=== PATIENT | male | born 1965 | race Caucasian/White ===

== ENCOUNTER 2022-09-22 15:32 | Outpatient (OUT) | payer OTHER, SELFPAY ==
[2022-09-22 16:12] LABS: Estimated Average Glucose 143 mg/dL; Glycohemoglobin A1C 6.6 % (4.5-6.2)
== END 2022-09-22 15:33 | disposition home or self-care (01) ==
PROVIDERS: PCP Internal Medicine; Visit Provider Internal Medicine
DX: E11.65 Type 2 diabetes mellitus with hyperglycemia (principal)
CPT/HCPCS: 36415; 83036

== ENCOUNTER 2023-02-23 15:19 | Outpatient (OUT) | payer OTHER, SELFPAY ==
[2023-02-23 15:57] LABS: Basophils Percent Auto 0.5 % (0.2-2.0); Eosinophils Absolute Auto 0.2 10^3/uL (0.0-0.7); Eosinophils Percent Auto 1.9 % (0.9-7.0); Hematocrit 41.9 % (42.0-54.0); Hemoglobin 14.4 g/dL (14.0-18.0); Immature Granulocytes Abs Auto 0.02 10^3/uL (0.00-0.03); Immature Granulocytes Pct Auto 0.2 % (0.0-0.5); Lymphocytes Absolute Auto 3.6 10^3/uL (1.2-3.8); Lymphocytes Percent Auto 42.7 % (20.5-60.0); Mean Corpuscular HGB Conc 34.4 g/dL (29.9-35.2); Mean Corpuscular Hemoglobin 32.4 pg (25.9-34.0); Mean Corpuscular Volume 94.4 fL (80.0-94.0); Mean Platelet Volume 9.1 fL (9.5-13.5); Monocytes Absolute Auto 0.6 10^3/uL (0.3-0.8); Monocytes Percent Auto 7.4 % (1.7-12.0); Neutrophils Absolute Auto 3.9 10^3/uL (1.4-6.5); Neutrophils Percent Auto 47.3 % (43.0-75.0); Platelet Count 243 10^3/uL (150-450); Red Blood Count 4.44 10^6/uL (4.70-6.10); Red Cell Distribution Width 11.8 % (11.0-15.0); White Blood Count 8.3 10^3/uL (4.0-11.0)
[2023-02-23 16:12] LABS: Microalbumin Urine Random 4.7 mg/dL (<=30.0)
[2023-02-23 16:12] LABS: Estimated Average Glucose 140 mg/dL; Glycohemoglobin A1C 6.5 % (4.5-6.2)
[2023-02-23 16:13] LABS: Alanine Aminotransferase 42 U/L (16-63); Albumin Globulin Ratio 1.1; Albumin Level 4.2 g/dL (3.4-5.0); Alkaline Phosphatase 57 U/L (46-116); Anion Gap 15.1; Aspartate Amino Transferase 20 U/L (15-37); BUN Creatinine Ratio 12.4; Bilirubin Total 0.8 mg/dL (0.2-1.0); Calcium 8.8 mg/dL (8.5-10.1); Chloride 102 mmol/L (98-107); Cholesterol 167 mg/dL (<=200); Estimated GFR (African America >60 (>=60); Estimated GFR (Non-African Ame >60 (>=60); Globulin 3.8 g/dL; Glucose 112 mg/dL (74-106); HDL Cholesterol 42 mg/dL (40-60); LDL Cholesterol Calculated 104.4 mg/dL; Potassium 4.1 mmol/L (3.5-5.1); Sodium 142 mmol/L (136-145); Triglycerides 103 mg/dL (<=150); VLDL CHOLESTEROL 20.6 mg/dL
[2023-02-23 16:26] LABS: Prostate Specific Antigen Scrn 0.83 ng/mL (<=4.00)
== END 2023-02-23 15:20 | disposition home or self-care (01) ==
PROVIDERS: PCP Internal Medicine; Visit Provider Internal Medicine
DX: Z00.00 Encounter for general adult medical examination without abnormal findings (principal)
CPT/HCPCS: 36415; 80053; 80061; 82043; 83036; 85025; G0103

== ENCOUNTER 2023-03-02 07:58 | Outpatient (RCR) | payer OTHER, SELFPAY | END 2023-03-12 09:00 | disposition home or self-care (01) | LOC: PT 07:58 | PROVIDERS: PCP Internal Medicine; Visit Provider Internal Medicine | DX: S46.012D Strain of muscle(s) and tendon(s) of the rotator cuff of left shoulder, subsequent encounter (principal) | CPT/HCPCS: 97110; 97112; 97140; 97162 ==

== ENCOUNTER 2023-03-13 09:29 | Outpatient (RCR) | payer OTHER, SELFPAY | END 2023-04-14 15:54 | disposition home or self-care (01) | LOC: PT 09:29 | PROVIDERS: PCP Internal Medicine; Visit Provider Internal Medicine | DX: S46.012D Strain of muscle(s) and tendon(s) of the rotator cuff of left shoulder, subsequent encounter (principal) | CPT/HCPCS: 97110; 97112; 97140 ==

== ENCOUNTER 2023-08-24 15:25 | Outpatient (OUT) | payer OTHER, SELFPAY ==
--- OUTSIDE RECORDS SUMMARY | 2023-08-24 15:47 | XMS_ITS | CCD ---
Author Organization [facility] Care Team Providers Care Animal Nutritionist Name Role Phone BILL, DR NUGENT Attending Unavailable BALL, DR NUGENT Consulting Unavailable BALL, DR NUGENT Primary Care Unavailable BALL, DR NUGENT Admitting Unavailable BALL, DR NUGENT Consulting Unavailable BALL, DR NUGENT Primary Care Unavailable BALL, DR NUGENT Admitting Unavailable BALL, DR NUGENT Attending Unavailable BALL, DR NUGENT Consulting Unavailable BALL, DR NUGENT Primary Care Unavailable BALL, DR NUGENT Admitting Unavailable BALL, DR NUGENT Attending Unavailable BALL, DR NUGENT Attending Unavailable BALL, DR NUGENT Consulting Unavailable BALL, DR NUGENT Primary Care Unavailable BALL, DR NUGENT Admitting Unavailable Ball, James Unavailable Allergies Allergy Classification Reported Allergen(s) Allergy Type Date of Onset Reaction(s) Facility (1 source) patient allergy list reviewed by nurse or physicia Propensity to adverse reactions Comment:Done [facility] Other Medications Current Medications Medication Drug Class(es) Dates Sig (Normalized) Sig (Original) amLODIPine 5 mg oral tablet (5 sources) Dihydropyridine Calcium Channel Hemant take 1 tablet by mouth once daily amLODIPine Besylate 5 MG TAKE 1 TABLET BY MOUTH EVERY DAY Active carvedilol 25 mg oral tablet (5 sources) alpha-Adrenergic Hemant, beta-Adrenergic Hemant take 1 tablet by mouth twice daily Carvedilol 25 MG TAKE 1 TABLET BY MOUTH TWICE A DAY Active metFORMIN hydrochloride 1000 mg oral tablet (5 sources) Biguanide Start: 09-26-2022 Problems Active Problems Problem Classification Problem Date Documented Date Episodic/Chronic Biliary tract disease (6 sources) Biliary calculus; Translations: [Calculus of gallbladder without cholecystitis without obstruction] Episodic Calculus of urinary tract (12 sources) History of calculus of kidney; Translations: [Personal history of urinary calculi] Episodic Diabetes mellitus with complications (12 sources) Type 2 diabetes mellitus with hyperglycemia; Translations: [Type 2 diabetes mellitus] Onset: 07-20-2021 Chronic Essential hypertension (9 sources) Essential (primary) hypertension; Translations: [Essential hypertension] Onset: 07-23-2021 Chronic Hyperplasia of prostate (7 sources) Lower urinary tract symptoms due to benign prostatic hypertrophy; Translations: [Benign prostatic hyperplasia with lower urinary tract symptoms] Onset: 11-23-2017 Chronic Osteoarthritis (1 source) Localized, primary osteoarthritis of the shoulder region; Translations: [Primary osteoarthritis, right shoulder] Chronic Other connective tissue disease (1 source) Other shoulder lesions, left shoulder Episodic Other non-traumatic joint disorders (1 source) Pain in left shoulder Episodic Other nutritional; endocrine; and metabolic disorders (5 sources) Obesity caused by energy imbalance; Translations: [Other obesity due to excess calories] Chronic Other nutritional; endocrine; and metabolic disorders (10 sources) Body mass index 30+ - obesity; Translations: [Body mass index (BMI) 31.0-31.9, adult] Onset: 11-23-2017 Chronic Other nutritional; endocrine; and metabolic disorders (2 sources) Simple obesity ; Translations: [Exogenous obesity] Chronic Other nutritional; endocrine; and metabolic disorders (2 sources) Other obesity due to excess calories Chronic Other nutritional; endocrine; and metabolic disorders (1 source) Body mass index (BMI) 31.0-31.9, adult Chronic Other nutritional; endocrine; and metabolic disorders (1 source) Obesity; Translations: [Obesity, unspecified] Onset: 02-22-2022 Chronic Other nutritional; endocrine; and metabolic disorders (1 source) Body mass index (BMI) 30.0-30.9, adult Chronic Other screening for suspected conditions (not mental disorders or infectious disease) (2 sources) Encounter for screening for malignant neoplasm of prostate; Translations: [ENC SCREEN MALIG NEOPLASM PROSTATE] Onset: 02-17-2022 Episodic Sprains and strains (2 sources) Strain of muscle of right shoulder; Translations: [Strain of muscle(s) and tendon(s) of the rotator cuff of right shoulder, initial encounter] Onset: 07-30-2018 Episodic Past or Other Problems Problem Classification Problem Date Documented Da te Episodic/Chronic Acute and unspecified renal failure (1 source) Acute renal failure syndrome; Translations: [Acute kidney failure, unspecified] Resolved: 07-20-2021 Episodic Deficiency and other anemia (4 sources) Anemia, unspecified; Translations: [ANEMIA UNSPECIFIED] Onset: 05-28-2021 Episodic Deficiency and other anemia (1 source) Anemia; Translations: [Anemia, unspecified] Resolved: 07-20-2021 Episodic Other connective tissue disease (1 source) Partial thickness rotator cuff tear; Translations: [Partial tear of rotator cuff] Onset: 09-12-2018 Episodic Other non-traumatic joint disorders (1 source) Shoulder joint pain; Translations: [Pain in joint, shoulder region] Onset: 09-12-2018 Episodic Results Test Name Value Interpretation Reference Range Facility Comprehensive Metabolic Pane [facility] 02-23-2023 Albumin [Mass/Vol] 4.828632 g/dL Normal 3.4-5.0 g/dL [facility] [employer] Other ALP [Catalytic activity/Vol] 57 U/L Normal 46-116 U/L [facility] [employer] Other ALT [Catalytic activity/Vol] 42 U/L Normal 16-63 U/L [facility] Other Anion gap [Moles/Vol] 15.1 mmol/L [facility] Other AST [Catalytic activity/Vol] 20 U/L Normal 15-37 U/L [employer] Other Bilirubin [Mass/Vol] 0.8403176 mg/dL Normal 0.2-1.0 mg/dL [employer] Other Calcium [Mass/Vol] 8.6591496 mg/dL Normal 8.5-10 .1 mg/dL [employer] Other Chloride [Moles/Vol] 102 mmol/L Normal 98-107 mmol/L [employer] Other CO2 [Moles/Vol] 29.89700002 mmol/L Normal 21.0-3 2.0 mmol/L [facility] Other Creatinine [Mass/Vol] 1.15055808 mg/dL Normal 0.70-1.30 mg/dL [employer] Other Glucose [Mass/Vol] 112 mg/dL High 74-106 mg/dL [facility] [employer] Other Potassium [Moles/Vol] 4.85210838 mmol/L Normal 3.5-5.1 mmol/L [facility] Other Protein [Mass/Vol] 8.548123 g/dL Normal 6.4-8.2 g/dL [facility] [employer] Other Sodium [Moles/Vol] 142 mmol/L Normal 136-145 mmol/L [facility] [employer] Other Urea nitrogen [Mass/Vol] 14.5756697 mg/dL Normal 7.0-18.0 mg/dL [facility] Other Urea nitrogen/Creatinine [Mass ratio] 12.4 mg/mg [facility] Other Comprehensive Metabolic Panel 3.8 g/dL [facility] Other Comprehensive Metabolic Panel 1.1 [facility] Other Comprehensive Metabolic Panel see note [facility] Other Comprehensive Metabolic Panel >60 >=60 [facility] [employer] Other Lipid Panelon 02-23-2023 Cholesterol [Mass/Vol] 167 mg/dL <=200 mg/dL [facility] [employer] Other Cholesterol in HDL [Mass/Vol] 42 mg/dL Normal 40-60 mg/dL [facility] Other Triglyceride [Mass/Vol] 103 mg/dL <=150 mg/dL [facility] Other Lipid Panel 104.4 mg/dL [facility] Other Lipid Panel 20.6 mg/dL [facility] [employer] Other Lipid Panel 4.0 [facility] [employer] Other PSA SCREENINGon 02-23-2023 PSA SCREENING 0.83 ng/mL <=4.00 ng/mL [facility] Other CBC AUTO DIFFon 02-10-2022 BASO # 0.1 103/ul Normal 0.0-0.1 [facility] Comment on above: Performed By: #### C BC #### [facility] [address] [address] [address] David Lares Basophils/100 WBC (Bld) 0.6 % Normal 0.2-2.[address] [facility] Comment on above: Performed By: #### C BC #### [facility] [address] [address] [address] David Lares EO # 1.3 103/ul Critically high 0.0-0.7 [facility] Comment on above: Performed By: #### C BC #### [facility] [address] [address] [address] David Lares Eosinophils/100 WBC (Bld) 15.2 % Critically high 0.9-7.[address] [facility] Comment on above: Performed By: #### C BC #### [facility] [address] [place] [address] Dr. David Lares Erythrocyte distribution width (RBC) [Ratio] 11.9 % Normal 11.0-15.[address] [facility] Comment on above: Performed By: #### C BC #### [facility] [address] [place] [address] Dr. David Lares Hematocrit (Bld) [Volume fraction] 40.2 % Critically low 42.0-54.[address] [facility] Comment on above: Performed By: #### C BC #### [facility] [address] [place] [address] Dr. David Lares Hemoglobin (Bld) [Mass/Vol] 14.1 g/dL Normal 14.0-18.[address] [facility] Comment on above: Performed By: #### C BC #### [facility] [address] [place] [address] Dr. David Lares IG # 0.01 10e3/ul Normal 0.00-0.[address] [facility] Comment on above: Performed By: #### C BC #### [facility] [address] [place] [address] Dr. David Lares IG % 0.1 % Normal 0.0-0.5 [facility] Comment on above: Performed By: #### C BC #### [facility] [address] [place] [address] Dr. David Lares LYMPH # 3.6 103/ul Normal 1.2-3.[address] [facility] Comment on above: Performed By: #### C BC #### [facility] [address] [place] [address] Dr. David Lares Lymphocytes/100 WBC (Bld) 40.9 % Normal 20.5-60.[address] [facility] Comment on above: Performed By: #### C BC #### [facility] [address] [place] [address] Dr. David Lares MANUAL DIFF REQ NO Normal [facility] Comment on above: Performed By: #### C BC #### [facility] [address] [place] [address] Dr. David Lares MCH (RBC) [Entitic mass] 31.8 pg Normal 25.9-34.[address] [facility] Comment on above: Performed By: #### C BC #### [facility] [address] [place] [address] Dr. David Lares MCHC (RBC) [Mass/Vol] 35.1 g/dL Normal 29.9-35.[address] [facility] Comment on above: Performed By: #### C BC #### [facility] [address] [place] [address] Dr. David Lares MCV (RBC) [Entitic vol] 90.5 fL Normal 80.0-94.[address] [facility] Comment on above: Performed By: #### C BC #### [facility] [address] [place] [address] Dr. David Lares MONO # 0.7 103/ul Normal 0.3-0.[address] [facility] Comment on above: Performed By: #### C BC #### [facility] [address] [place] [address] Dr. David Lares Monocytes/100 WBC (Bld) 8.3 % Normal 1.7-12.[address] [facility] Comment on above: Performed By: #### C BC #### [facility] [address] [address] [address] David Lares NEUT # 3.0 103/ul Normal 1.4-6.[address] [facility] Comment on above: Performed By: #### C BC #### [facility] [address] [address] [address] David Lares Neutrophils/100 WBC (Bld) 34.9 % Critically low 43.0-75.[address] [facility] Comment on above: Performed By: #### C BC #### [facility] [address] [address] [address] David Lares Platelet mean volume (Bld) [Entitic vol] 8.6 fL Critically low 9.5-13.[address] [facility] Comment on above: Performed By: #### C BC #### [facility] [address] [place] [address] Dr. David Lares PLT 244 103/ul Normal 150-[address] [facility] Comment on above: Performed By: #### C BC #### [facility] [address] [address] [address] David Lares RBC 4.44 106/ul Critically low 4.70-6.10 [facility] Comment on above: Performed By: #### C BC #### [facility] [address] [address] [address] David Lares WBC 8.7 103/ul Normal 4.0-11.[address] [facility] Comment on above: Performed By: #### C BC #### [facility] [address] [place] [address] Dr. David Lares LIPID PROFILEon 02-10-2022 CHOL-HDL RATIO NORM SEE BELOW Normal [facility] Comment on above: Result Comment: 3.3 - 4.4 LOW RISK 4.4 - 7.1 AVERAGE RISK 7.1 - 11.0 MODERATE RISK >11.0 HIGH RISK Performed By: #### C MP, LIPID #### [facility] [address] [address] [address] David Lares Cholesterol [Mass/Vol] 151 mg/dL Normal <=[address] [facility] Comment on above: Performed By: #### C MP, LIPID #### [facility] [address] [address] [address] David Lares Cholesterol in HDL [Mass/Vol] 44 mg/dL Normal 40-[address] [facility] Comment on above: Performed By: #### C MP, LIPID #### [facility] [address] [address] [address] David Lares Cholesterol in LDL [Mass/Vol] 87.4 mg/dL Normal [facility] Comment on above: Performed By: #### C MP, LIPID #### [facility] [address] [address] [address] David Lares Cholesterol.total/C holesterol in HDL [Mass ratio] 3.4 {ratio} Normal [facility] Comment on above: Performed By: #### C MP, LIPID #### [facility] [address] [place] [address] Dr. David Lares HDL NORMAL > or = 60 mg/dl - LO W CARDIOVASCULAR RISK <40 mg/dl - HIGH CARDIOVASCULAR RISK Normal [facility] Comment on above: Performed By: #### C MP, LIPID #### [facility] [address] [place] [address] Dr. David Lares LDL CALC NORMAL SEE BELOW Normal [facility] Comment on above: Result Comment: <100 mg/dl OPTIMAL 100 - 129 mg/dl NEAR OR ABOVE OPTIMAL 130 - 159 mg/dl BORDERLINE HIGH 160 - 189 mg/dl HIGH >190 mg/dl VERY HIGH Performed By: #### C MP, LIPID #### [facility] [address] [place] [address] Dr. David Lares Triglyceride [Mass/Vol] 98 mg/dL Normal <=150 [facility] Comment on above: Performed By: #### C MP, LIPID #### [facility] [address] [place] [address] Dr. David Lares VLDL CALC 19.6 mg/dL Normal [facility] Comment on above: Performed By: #### C MP, LIPID #### [facility] [address] [address] [address] David Lares PROF 14(COMP METB)on 022 Albumin [Mass/Vol] 4.2 g/dL Normal 3.4-5.0 [facility] Comment on above: Performed By: #### C MP, LIPID #### [facility] [address] [place] [address] Dr. David Lares Albumin/Globulin [Mass ratio] 1.0 {ratio} Normal [facility] Comment on above: Performed By: #### C MP, LIPID #### [facility] [address] [place] [address] Dr. David Lares ALP [Catalytic activity/Vol] 64 U/L Normal 46-[address] [facility] Comment on above: Performed By: #### C MP, LIPID #### [facility] [address] [place] [address] Dr. David Lares ALT [Catalytic activity/Vol] 25 U/L Normal 16-[address] [facility] Comment on above: Performed By: #### C MP, LIPID #### [facility] [address] [place] [address] Dr. David Lares Anion gap [Moles/Vol] 10.9 mmol/L Normal [facility] Comment on above: Performed By: #### C MP, LIPID #### [facility] [address] [place] [address] Dr. David Lares AST [Catalytic activity/Vol] 19 U/L Normal 15-[address] [facility] Comment on above: Performed By: #### C MP, LIPID #### [facility] [address] [place] [address] Dr. David Lares Bilirubin [Mass/Vol] 0.6 mg/dL Normal 0.2-1.[address] [facility] Comment on above: Performed By: #### C MP, LIPID #### [facility] [address] [place] [address] Dr. David Lares Calcium [Mass/Vol] 8.9 mg/dL Normal 8.5-10.1 [facility] Comment on above: Performed By: #### C MP, LIPID #### [facility] [address] [address] [address] David Lares Chloride [Moles/Vol] 100 mmol/L Normal 98-[address] [facility] Comment on above: Performed By: #### C MP, LIPID #### [facility] [address] [address] [address] David Lares CO2 [Moles/Vol] 29.2 mmol/L Normal 21.0-32.0 [facility] Comment on above: Performed By: #### C MP, LIPID #### [facility] [address] [address] [address] David Lares Creatinine [Mass/Vol] 0.91 mg/dL Normal 0.70-1.30 [facility] Comment on above: Performed By: #### C MP, LIPID #### [facility] [address] [place] [address] Dr. David Lares EGFR-AF OMANI >60 Normal >=60 [facility] Comment on above: Performed By: #### C MP, LIPID #### [facility] [address] [place] [address] Dr. David Lares EGFR-NON AF OMANI >60 Normal >=[address] [facility] Comment on above: Performed By: #### C MP, LIPID #### [facility] [address] [place] [address] Dr. David Lares Globulin (S) [Mass/Vol] 4.1 g/dL Normal [facility] Comment on above: Performed By: #### C MP, LIPID #### [facility] [address] [place] [address] Dr. David Lares Glucose [Mass/Vol] 101 mg/dL Normal 74-106 [facility] Comment on above: Performed By: #### C MP, LIPID #### [facility] [address] [address] [address] David Lares Potassium [Moles/Vol] 4.1 mmol/L Normal 3.5-5.[address] [facility] Comment on above: Performed By: #### C MP, LIPID #### [facility] [address] [place], [place] [id number] Dr. David Lares Protein [Mass/Vol] 8.3 g/dL Critically high 6.4-8.2 [facility] Comment on above: Performed By: #### C MP, LIPID #### [facility] [address] [place] [address] Dr. David Lares Sodium [Moles/Vol] 136 mmol/L Normal 136-145 [facility] Comment on above: Performed By: #### C MP, LIPID #### [facility] [address] [place] [address] Dr. David Lares Urea nitrogen [Mass/Vol] 17.0 mg/dL Normal 7.0-18.[address] [facility] Comment on above: Performed By: #### C MP, LIPID #### [facility] [address] [place] [address] Dr. David Lares Urea nitrogen/Creatinine [Mass ratio] 18.7 mg/mg Normal [facility] Comment on above: Performed By: #### C MP, LIPID #### [facility] [address] [place] [address] Dr. David Lares GLYCOHEMOGLOBIN A1Con 2021 ADA RECOMMENDATION SEE BELOW Normal [facility] Comment on above: Result Comment: ADA RECOMMENDED LIMIT 4.0 - 6.0 ADA THERAPEUTIC TARGET < 7.0 ACTION SUGGESTED > 7.0 Performed By: #### A 1C #### [facility] [address] [place] [address] Dr. David Lares Glucose [Mass/Vol] 123 mg/dL Normal [facility] Comment on above: Performed By: #### A 1C #### [facility] [address] [place] [address] Dr. David Lares HbA1c (Bld) [Mass fraction] 5.9 % Normal 4.5-6.[address] [facility] Comment on above: Performed By: #### A 1C #### [facility] [address] [place] [address] Dr. David Lares MICROALBUMIN, RAND URon 11-2 mALB 2.5 mg/L Normal <=30.[address] [facility] Comment on above: Performed By: #### M ALBR #### [facility] [address] [address] [address] David Lares GLYCOHEMOGLOBIN A1Con 2021 ADA RECOMMENDATION SEE BELOW Normal [facility] Comment on above: Result Comment: ADA RECOMMENDED LIMIT 4.0 - 6.0 ADA THERAPEUTIC TARGET < 7.0 ACTION SUGGESTED > 7.0 Performed By: #### A 1C #### [facility] [address] [address] [address] David Lares Glucose [Mass/Vol] 126 mg/dL Normal [facility] Comment on above: Performed By: #### A 1C #### [facility] [address] [place] [address] Dr. David Lares HbA1c (Bld) [Mass fraction] 6.0 % Normal 4.5-6.[address] [facility] Comment on above: Performed By: #### A 1C #### [facility] [address] [place] [address] Dr. David Lares PROF CHEM 8 (BAS METB)on Anion gap [Moles/Vol] 10.6 mmol/L Normal [facility] Comment on above: Performed By: #### B MP #### [facility] [address] [place] [address] Dr. David Lares Calcium [Mass/Vol] 8.8 mg/dL Normal 8.5-10.1 [facility] Comment on above: Performed By: #### B MP #### [facility] [address] [place] [address] Dr. David Lares Chloride [Moles/Vol] 103 mmol/L Normal 98-107 [facility] Comment on above: Performed By: #### B MP #### [facility] [address] [place] [address] Dr. David Lares CO2 [Moles/Vol] 27.5 mmol/L Normal 21.0-32.0 [facility] Comment on above: Performed By: #### B MP #### [facility] [address] [place] [address] Dr. David Lares Creatinine [Mass/Vol] 0.98 mg/dL Normal 0.70-1.[address] [facility] Comment on above: Performed By: #### B MP #### [facility] [address] [place] [address] Dr. David Lares EGFR-AF OMANI >60 Normal >=60 [facility] Comment on above: Performed By: #### B MP #### [facility] [address] [place] [address] Dr. David Lares EGFR-NON AF OMANI >60 Normal >=[address] [facility] Comment on above: Performed By: #### B MP #### [facility] [address] [place] [address] Dr. David Lares Glucose [Mass/Vol] 102 mg/dL Normal 74-106 [facility] Comment on above: Performed By: #### B MP #### [facility] [address] [place] [address] Dr. David Lares Potassium [Moles/Vol] 4.1 mmol/L Normal 3.5-5.[address] [facility] Comment on above: Performed By: #### B MP #### [facility] [address] [place] [address] Dr. David Lares Sodium [Moles/Vol] 137 mmol/L Normal 136-145 [facility] Comment on above: Performed By: #### B MP #### [facility] [address] [place] [address] Dr. David Lares Urea nitrogen [Mass/Vol] 14.0 mg/dL Normal 7.0-18.[address] [facility] Comment on above: Performed By: #### B MP #### [facility] [address] [place] [address] Dr. David Lares Urea nitrogen/Creatinine [Mass ratio] 14.3 mg/mg Normal [facility] Comment on above: Performed By: #### B MP #### [facility] [address] [place] [address] Dr. David Lares CBC AUTO DIFFon 05-28-2021 BASO # 0.1 103/ul Normal 0.0-0.[address] [facility] Comment on above: Performed By: #### C BC #### [facility] [address] [place] [address] Dr. David Lares Basophils/100 WBC (Bld) 0.7 % Normal 0.2-2.[address] [facility] Comment on above: Performed By: #### C BC #### [facility] [address] [place] [address] Dr. David Lares EO # 0.5 103/ul Normal 0.0-0.[address] [facility] Comment on above: Performed By: #### C BC #### [facility] [address] [place] [address] Dr. David Lares Eosinophils/100 WBC (Bld) 5.6 % Normal 0.9-7.[address] [facility] Comment on above: Performed By: #### C BC #### [facility] [address] [place] [address] Dr. David Lares Erythrocyte distribution width (RBC) [Ratio] 11.8 % Normal 11.0-15.[address] [facility] Comment on above: Performed By: #### C BC #### [facility] [address] [place] [address] Dr. David Lares Hematocrit (Bld) [Volume fraction] 40.7 % Critically low 42.0-54.[address] [facility] Comment on above: Performed By: #### C BC #### [facility] [address] [place] [address] Dr. David Lares Hemoglobin (Bld) [Mass/Vol] 14.0 g/dL Normal 14.0-18.[address] [facility] Comment on above: Performed By: #### C BC #### [facility] [address] [place] [address] Dr. David Lares IG # 0.01 10e3/ul Normal 0.00-0.[address] [facility] Comment on above: Performed By: #### C BC #### [facility] [address] [place] [address] Dr. David Lares IG % 0.1 % Normal 0.0-0.[address] [facility] Comment on above: Performed By: #### C BC #### [facility] [address] [place] [address] Dr. David Lares LYMPH # 3.1 103/ul Normal 1.2-3.[address] [facility] Comment on above: Performed By: #### C BC #### [facility] [address] [place] [address] Dr. David Lares Lymphocytes/100 WBC (Bld) 37.3 % Normal 20.5-60.[address] [facility] Comment on above: Performed By: #### C BC #### [facility] [address] [place] [address] Dr. David Lares MANUAL DIFF REQ NO Normal [facility] Comment on above: Performed By: #### C BC #### [facility] [address] [place] [address] Dr. David Lares MCH (RBC) [Entitic mass] 32.3 pg Normal 25.9-34.[address] [facility] Comment on above: Performed By: #### C BC #### [facility] [address] [place] [address] Dr. David Lares MCHC (RBC) [Mass/Vol] 34.4 g/dL Normal 29.9-35.[address] [facility] Comment on above: Performed By: #### C BC #### [facility] [address] [place] [address] Dr. David Lares MCV (RBC) [Entitic vol] 93.8 fL Normal 80.0-94.[address] [facility] Comment on above: Performed By: #### C BC #### [facility] [address] [place] [address] Dr. David Lares MONO # 0.8 103/ul Normal 0.3-0.[address] [facility] Comment on above: Performed By: #### C BC #### [facility] [address] [place] [address] Dr. David Lares Monocytes/100 WBC (Bld) 8.9 % Normal 1.7-12.[address] [facility] Comment on above: Performed By: #### C BC #### [facility] [address] [place], [place] [address] Dr. David Lares NEUT # 4.0 103/ul Normal 1.4-6.[address] [facility] Comment on above: Performed By: #### C BC #### [facility] [address] [place], [place] [address] Dr. David Lares Neutrophils/100 WBC (Bld) 47.4 % Normal 43.0-75.[address] [facility] Comment on above: Performed By: #### C BC #### [facility] [address] [place] [address] [address] David Lares Platelet mean volume (Bld) [Entitic vol] 8.5 fL Critically low 9.5-13.[address] [facility] Comment on above: Performed By: #### C BC #### [facility] [address] [address] [address] David Larse PLT 208 103/ul Normal 150-[address] [facility] Comment on above: Performed By: #### C BC #### [facility] [address] [address] [address] David Lares RBC 4.34 106/ul Critically low 4.70-6.10 [facility] Comment on above: Performed By: #### C BC #### [facility] [address] [address] [address] David Lares WBC 8.4 103/ul Normal 4.0-11.[address] [facility] Comment on above: Performed By: #### C BC #### [facility] [address] [address] [address] 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 However, the narrative phrase printed from the coding software may appear abbreviated, or result in slightly different terminology. 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 However, the narrative phrase printed from the coding software may appear abbreviated, or result in slightly different terminology. 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 However, the narrative phrase printed from the coding software may appear abbreviated, or result in slightly different terminology. Coded By: Jackelyn Lebron Date Saved: 11/08/2018 04:30 pm [facility] History and Physicalon 11-08 History and Physical [id number] .00OTGTIFF [facility] MAGR Intraoperative Recordon 11-08-2018 MAGR Intraoperative Record MAGR Intra-Op Record Summary Primary Physician: Álvaro Hayes DO Finalized Date/Time: 11/08/18 12:12:53 Pt. Name: DAI GREENWOOD /Sex: 1965 MALE Med Rec #: [id number] Physician: Álvaro Hayes DO Financial #: [id number] Pt. Type: D Room/Bed: / Admit/Disch: 11/05/18 07:54:04 - 11/05/18 13:28:00 Institution: Case Times MAGR Entry 1 Patient In Room Time 11/05/18 09:55:00 Out Room Time 11/05/18 11:10:00 Anesthesia Start Time 11/05/18 09:55:00 Stop Time 11/05/18 11:10:00 Surgery Start Time 11/05/18 10:32:00 Stop Time 11/05/18 10:57:00 Last Modified By: Alyce Reynolds RN 11/05/18 11:23:13 Case Attendance MAGR Entry 1 Entry 2 Entry 3 Case Attendee Álvaro Hayes Bradley MD Jasenak RN, Alyce Valerio DO Role Performed Surgeon - Primary Anesthesiologist of Supervisor [employer] Record Time In 11/05/18 09:55:00 11/05/18 09:55:00 11/05/18 09:55:00 Time Out 11/05/18 11:10:00 11/05/18 11:10:00 11/05/18 11:10:00 Procedure Arthroscopy Arthroscopy Arthroscopy Shoulder(Right) Shoulder(Right) Shoulder(Right) Last Modified By: Gail MCGRATH, Alyce Reynolds RN, Alyce Carranza RN 11/05/18 11:24:52 11/05/18 11:24:52 11/05/18 11:24:52 Entry 4 Entry 5 Case Attendee Jackelyn Lyons RN, CST, Rachel Role Performed Medical Sales Specialist Scrub Personnel Time In 11/05/18 09:55:00 11/05/18 09:55:00 Time Out 11/05/18 11:10:00 11/05/18 11:10:00 Procedure Arthroscopy Arthroscopy Shoulder(Right) Shoulder(Right) Last Modified By: Alyce Reynolds RN, RN, Cynthia M 11/05/18 11:24:52 11/05/18 11:24:52 General Comments: RICHARD HOU ARTHREX REP Surgical Procedures MAGR Pre-Care Text: A.20 Verifies operative procedure, surgical site, and laterality Im.150 Develops individualized plan of care Entry 1 Procedure Arthroscopy Shoulder Primary Procedure Yes Primary Surgeon Álvaro Hayes Modifiers Right Teodoro DO Surgeon Comment RIGHT SHOULDER SCOPE Start 11/05/18 10:32:00 Stop 11/05/18 10:57:00 Anesthesia Type General Surgical Service Orthopedics Wound Class Clean Technique Details Closure Technique Primary Entire procedure Yes was performed via laparoscope or robotic assistance Last Modified By: Alyce Reynolds RN 11/05/18 11:24:51 Post-Care Text: O.730 The patient's care is consistent with the individualized perioperative plan of care General Case Data MAGR Pre-Care Text: A.350.1 Classifies surgical wound Entry 1 Case Information OR MAGR OR 02 Case Level Level 4 Wound Class Clean Specialty Orthopedics ASA Class 2 Diagnosis Preop Diagnosis INTERNAL DERANGEMENT Postop Same As Preop No RIGHT SHOULDER Postop Diagnosis FROZEN SHOULDER Blunt or No Is the procedure No penetrating injury considered occured prior to Emergent/Urgent? the start of the procedure: Last Modified By: Alyce Reynolds RN 11/05/18 11:25:14 Post-Care Text: O.760 Patient receives consistent and comparable care regardless of the setting Time Out MAGR Entry 1 Time out date/time 11/05/18 10:31:00 All team members Yes have introduced themselves by name and role Surgeon, Yes Surgeon reviews Yes anesthesia, nurse critical or confirm patient, unexpected steps, site, procedure operative duration, anticipated blood loss Anesthesia team Yes Nursing team Yes reviews any reviews sterility patient-specific (including concerns indicator results) and equipment issues/concerns Antibiotic Antibiotic Yes Administration Time 10:01 prophylaxis given within the last 60 minutes Is essential N/A imaging displayed? Last Modified By: Alyce Reynolds RN 11/05/18 11:25:44 Patient Positioning MAGR Pre-Care Text: A.280 Identifies baseline musculoskeletal status Im.40 Positions the patient Im.80 Applies safety devices Entry 1 Procedure Arthroscopy Body Position Lateral Shoulder(Right) Left Arm Position Extended on padded arm Right Arm Position Extended board Left Leg Position Extended Right Leg Position Extended Feet Uncrossed? Yes Press Points Checked Yes Positioning Device Arm Boards, Arm Strap, Outcome Met (O.80) Yes Pillow, Safety Strap Last Modified By: Alyce Reynolds RN 11/05/18 11:25:56 Post-Care Text: E.290 Evaluates musculoskeletal status O.80 Patient is free from signs and symptoms of injury related to positioning Skin Prep MAGR Pre-Care Text: A.30 Verifies allergies Im.270 Performs skin preparation Im.270.1 Implements protective measures to prevent skin and tissue injury due to chemical sources Entry 1 Skin Prep Syntegrity Prep Agents (Im.270) Povidone-Iodine Prep By Alyce Reynolds RN Prep Area (Im.270) Shoulder, Arm, Hand Prep Area Details Right Skin Prep Agent Dry Yes Without Pooling Hair Removal Syntegrity Hair Removal Methods Clipper Hair Removal By Álvaro Hayes DO Hair Removal Site Chest Hair Removal Site Right Details Outcome Met (O.100) Yes Last Modified By: Alyce Reynolds RN 11/05/18 11:27:15 Post-Care Text: E.10 Evaluates for signs and symptoms of physical injury to skin and tissue O.100 Patient is free from signs and symptoms of chemical injury Counts Verification MAGR Pre-Care Text: A.20 Verifies operative procedure, surgical site, and laterality A.20.2 Assesses the risk for unintended retained foreign body Im.20 Performs required counts Entry 1 Procedure Arthroscopy Shoulder(Right) Counts Verification Initial Counts Items included in Sponges, Sharps Initial Counts Manual the Initial Count Method Initial Counts Alyce Reynolds RN, Performed By Ashley Jj CST Counts Verification Final Counts Items Included in Sponges, Sharps Final Count Method Manual Final Count Final Count Status Correct Final Counts Alyce Reynolds RN, Performed By Ashley Jj CST Surgeon notified of Yes final counts status Outcome Met (O.20) Yes Last Modified By: Alyce Reynolds RN 11/05/18 11:27:43 Post-Care Text: E.50 Evaluates results of the surgical count O.20 Patient is free from unintended retained foreign objects Patient Care Devices MAGR Pre-Care Text: A.200 Assesses risk for normothermia regulation A.40 Verifies presence of prosthetics or corrective devices Im.280 Implements thermoregulation measures Im.60 Uses supplies and equipment within safe parameters Entry 1 Equipment Type BLANKET LOWER BODY OR Serial ?# [id number] Equipment Setting 43C Last Modified By: Alyce Reynolds RN 11/05/18 11:28:26 Post-Care Text: E.10 Evaluates signs and symptoms of physical injury to skin and tissue O.700 Patient is free from signs and symptoms of injury caused by extraneous objects Medication Administration MAGR Pre-Care Text: A.210 Identifies physiological status Im.220 Administers prescribed medications Entry 1 Time Administered 11/05/18 10:35:00 Medication EPI 1:1000 Route of Admin TOP Volume 6 mL By Álvaro Hayes Outcome Met (O.130) Yes Teodoro DO Last Modified By: Alyce Reynolds RN 11/05/18 11:30:30 Post-Care Text: E.20 Evaluates response to medications O.130 Patient receives appropriately administered medication(s) General Comments: 6ML EPI INTO NACL BAGS Dressing/Packing MAGR Pre-Care Text: A.350 Assesses susceptibility for infection Im.290 Administer care to wound sites Entry 1 Skin Prep Agent Yes Site Shoulder Removed Prior to Dressing? Site Details Right Dressing Item Details Dressing Item 4x4's, ABD Tape (Im.290) Foam (Im.290) Outcome Met Yes Last Modified By: Alyce Reynolds RN 11/05/18 11:31:06 Post-Care Text: E.200 Evaluates progress of wound healing O.200 Patient's wound perfusion is consistent with or improved from baseline levels Departure from OR MAGR Entry 1 Present on Depart Oxygen Via Stretcher Post-op Destination PACU Skin DFO Condition Dry Description Condition Intact Description Report Given To Cristela Lopez RN Airway Maintenance Patient Status Stable Oxygen in Use? Yes Airway Device Simple mask Flow Rate 6 Last Modified By: Alyce Reynolds RN 11/05/18 11:31:36 Case Comments Finalized By: Charlene Tovar RN Document Signatures Signed By: Alyce Reynolds RN 11/05/18 11:36 Charlene Tovar RN 11/08/18 12:12 Unfinalized History Date/Time Username Reason for Unfinalizing Freetext Reason for Unfinalizing 11/05/18 14:23 MHCJASENAK Finish Documentation [facility] MAGR PACU Recordon 9 MAGR PACU Record MAGR PACU Record Summary Primary Physician: Álvaro Hayes DO Finalized Date/Time: 11/08/18 12:14:23 Pt. Name: DAI GREENWOOD /Sex: 1965 MALE Med Rec #: [id number] Physician: Álvaro Hayes DO Financial #: [id number] Pt. Type: D Room/Bed: / Admit/Disch: 11/05/18 07:54:04 - 11/05/18 13:28:00 Institution: PACU Case Times MAGR Entry 1 In PACU I 11/05/18 11:15:00 Discharge from PACU 11/05/18 11:58:00 I Last Modified By: Charlene Tovar RN 11/08/18 12:14:18 Finalized By: Charlene Tovar RN Document Signatures Signed By: Charlene Tovar RN 11/08/18 12:14 [facility] Provider Orderson 11-08-2018 Provider Orders [id number] [facility] 11-06-2018 Consent Forms [id number] .[facility]ructions[facility] Discharge Instructions [id number] .[facility] Medication Managementon 10-12 Medication Management [id number] .[facility]est[facility] Noteon 11-05-2018 Anesthesia Note Patient: DAI GREENWOOD Age: 53 years Sex: MALE : 1965 Associated Diagnoses: None Author: Ruslan Bernal MD Preoperative Information Anesthesia history: Patient history: No prior anesthesia problems. Review of Systems Constitutional: Negative. Respiratory: No shortness of breath. Cardiovascular: No chest pain. Health Status Allergies: Allergic Reactions (All) No Known Medication Allergies Current medications: Home Medications (7) Active amLODIPine 5 mg oral tablet 5 mg = 1 tab(s), PO, Daily aspirin 81 mg oral tablet 81 mg = 1 tab(s), PO, Daily carvedilol 25 mg oral tablet 25 mg = 1 tab(s), PO, BID metFORMIN 1000 mg oral tablet 1,000 mg = 1 tab(s), PO, BID multivitamin with minerals 1 tab(s), PO, Daily Template Non-Formulary Tylenol Extra Strength 500 mg oral tablet 1,000 mg = 2 tab(s), PO, BID Problem list (past medical history): All Problems Hypertension / SNOMED CT [id number] / Confirmed Histories Family History: No family history items have been selected or recorded. Procedure history: Pilonidal cyst (37219431). Colonoscopy (836687865). Esophagogastroduodeno scopy (961911839). Social History Alcohol Assessment Use: Current. Beer, Daily Use: Never. Tobacco Assessment Never (less than 100 in lifetime) Tobacco Use:. Substance Abuse Assessment Substance use: Never. . Social & Psychosocial Habits Alcohol 10/23/2018 Alcohol Use: Never 10/23/2018 Alcohol Use: Current Type: Beer Frequency: Daily Substance Abuse 10/23/2018 Substance use: Never Tobacco 10/23/2018 Smoking tobacco use: Never (less than 100 in l . Physical Examination VS/Measurements Vital Signs (last 24 hrs) Last Charted Heart Rate Peripheral 71 bpm (NOV 05 08:35) Resp Rate 18 br/min (NOV 05 08:35) SBP H 159mmHg (NOV 05 08:40) DBP H 97mmHg (NOV 05 08:40) SpO2 100 % (NOV 05 08:35) General: Alert and oriented, No acute distress. Airway: Mallampati classification: I (soft palate, fauces, uvula, pillars visible). Respiratory: Respirations are non-labored. Cardiovascular: Normal rate, Regular rhythm. Review / Management Laboratory Results Plan [place] [employer]#( A) physical status classification: Class II. Anesthetic Preoperative Plan Anesthesia: General. , Regional Interscalene Block. Anesthetic plan, risks, benefits, and alternatives discussed with the patient and/or family. Patient verbalized understanding. Informed consent was given. Consent was signed by the patient. Sister and Brother in law present. Communication: face to face with patient 10 minutes. Anesthetic technique: Interscalene BPNB for post op pain control R/B discussed. [Electronically Signed on: 11/05/2018 09:38 EDT] Ruslan Bernal MD [Verified on: 11/05/2018 09:38 EDT] Ruslan Bernal MD [facility] Inpatient Patient Summaryon 11-05-2018 [place] [address] Patient Discharge Instructions Name: DAI GREENWOOD : 1965 Patient Address: [address] [place] [address] Primary Care Provider: Name: James Khan After you are discharged if you find you have any questions, please, call [phone] ext [phone] to speak to a nurse. Discharge Diagnosis: Nontraumatic tear of right supraspinatus tendon Prescription Information: If you have been given a prescription for narcotics, seek immediate medical attention if you have any difficulty breathing or any sudden status changes such as confusion and sleepiness. If you or anyone you know is experiencing suicidal thoughts, mental health, alcohol and/or drug addiction problems; contact the [facility] 03/10 Crisis Hotline -Text 4HTCQ to 137789. If you received any narcotics, sedation, or any other medication that causes drowsiness for the next 24 hours, unless otherwise directed: ? Do not drive a car. ? Do not operate machinery such as power tools, lawn mowers, drills, sewing machines, or stoves ? Avoid alcoholic beverages and drugs for allergies, nerves, or sleep ? Do not make important personal or business decisions or sign any legal documents [facility] would like to thank you for allowing us to assist you with your healthcare needs. The following includes patient education materials and information regarding your injury/illness. DAI GREENWOOD Robinson has been given the following list of follow-up instructions, prescriptions, and patient education materials: Follow-up Instructions With: Address: When: Álvaro Hayes [address], [address] [place], [place] [address] Business (2) 11/15/2018 9:00 AM With: Address: When: James Khan [address] [place] [id number] Business (1) Medications During the course of your visit, your medication list was updated with the most current information. The details of those changes are reflected below: Medications to Continue That Have Not Changed Other Medications acetaminophen (Tylenol Extra Strength 500 mg oral tablet) 2 tab(s) Oral 2 times a day. acetaminophen-oxycodo ne (Percocet 5/325 oral tablet) 1 tab(s) Oral Every 6 hours as needed for pain. amLODIPine (amLODIPine 5 mg oral tablet) 1 tab(s) Oral every day. aspirin (aspirin 81 mg oral tablet) 1 tab(s) Oral every day. carvedilol (carvedilol 25 mg oral tablet) 1 tab(s) Oral 2 times a day. metFORMIN (metFORMIN 1000 mg oral tablet) 1 tab(s) Oral 2 times a day. multivitamin with minerals 1 tab(s) Oral every day. Template Non-Formulary It is important to always keep an active list of medications available so that you can share with other providers and manage your medications appropriately. As an additional courtesy, we are also providing you with your final active medications list that you can keep with you. acetaminophen (Tylenol Extra Strength 500 mg oral tablet) 2 tab(s) Oral 2 times a day. acetaminophen-oxycodo ne (Percocet 5/325 oral tablet) 1 tab(s) Oral Every 6 hours as needed for pain., Dr. Hayes's home RX amLODIPine (amLODIPine 5 mg oral tablet) 1 tab(s) Oral every day. aspirin (aspirin 81 mg oral tablet) 1 tab(s) Oral every day. carvedilol (carvedilol 25 mg oral tablet) 1 tab(s) Oral 2 times a day. metFORMIN (metFORMIN 1000 mg oral tablet) 1 tab(s) Oral 2 times a day. multivitamin with minerals 1 tab(s) Oral every day. Template Non-Formulary , omega 3, flax seed, primrose combo twice a day Take only the medications listed above. Contact your doctor prior to taking any medications not on this list. Diet & Activity Patient Activity Level: Patient Diet: Regular Patient Activity Restrictions: Comment: Patient education materials, if any, will display below DR. YOON POST OPERATIVE SHOULDER INSTRUCTIONS SURGEONS WRITTEN INSTRUTCTIONS: -If you have been given a cryo cuff after surgery you should use it as much as possible for the first 24-48 hours. After that it is optional. TIP: Many patients prefer to use it a little longer because it helps reduce pain -You should wiggle your fingers frequently -Change your dressings in 1 day. If steri-strips have been applied DO NOT remove them. When the wound is clean and dry you may leave it open to air but again DO NOT remove any steri-strips that have been applied -You may shower in 1 day but do not let the water stream directly strike the wound -Do pendulum exercises for at least 10 minutes twice a day -If you have any problems or concerns, please call the office at [phone] -Follow up as scheduled Viruses or Bacteria What?s got you sick? Antibiotics only treat bacterial infections. Viral illnesses cannot be treated with antibiotics. When an antibiotic is not prescribed, ask your healthcare professional for tips on how to relieve symptoms and feel better. Usual Cause Illness Viruses Bacteria Antibiotic Needed Cold/Runny Nose NO Bronchitis/Chest Cold (in otherwise healthy children and adults) NO Whooping Cough Yes Flu NO Strep Throat Yes Sore Throat (except strep) NO Fluid in the middle ear (otitis media with effusion) NO Urinary Tract Infection Yes Antibiotics Aren?t Always the Answer www.cdc.gov/getsmart GET SMART Know When Antibiotics Work [place] Department of Health and Human Services Centers for Disease Control and Prevention November 2013 [facility] Recordon 11-05-2018 MAGR Intraoperative Record MAGR Intra-Op Record Summary Primary Physician: Finalized Date/Time: 11/05/18 10:04:36 Pt. Name: DAI GREENWOOD Robinson /Sex: 1965 MALE Med Rec #: [id number] Physician: Álvaro Hayes DO Financial #: [id number] Pt. Type: D Room/Bed: / Admit/Disch: 11/05/18 07:54:04 - Institution: Case Times MAGR Entry 1 Patient In Room Time 11/05/18 09:30:00 Out Room Time 11/05/18 09:53:00 Anesthesia Start Time 11/05/18 09:45:00 Stop Time 11/05/18 09:50:00 Surgery Start Time 11/05/18 09:45:00 Stop Time 11/05/18 09:50:00 Last Modified By: Brandy Paige RN 11/05/18 09:54:52 Case Attendance MAGR Entry 1 Entry 2 Entry 3 Case Attendee Ruslan Bernal MD, Laura RN Klaehn, Margaret RN Role Performed Anesthesiologist of Supervisor White Sugar Supervisor White Sugar Record Time In 11/05/18 09:30:00 11/05/18 09:30:00 11/05/18 09:30:00 Time Out 11/05/18 09:53:00 11/05/18 09:53:00 11/05/18 09:53:00 Procedure Interscalene Interscalene Interscalene Block(Right) Block(Right) Block(Right) Last Modified By: Brandy Paige RN, Margaret RN Klaehn, Margaret RN 11/05/18 09:55:09 11/05/18 09:55:09 11/05/18 09:55:09 Surgical Procedures MAGR Pre-Care Text: A.20 Verifies operative procedure, surgical site, and laterality Im.150 Develops individualized plan of care Entry 1 Procedure Interscalene Block Primary Procedure Yes Primary Surgeon Ruslan Bernal MD Modifiers Right Surgeon Comment INTERSCALENE BLOCK Start 11/05/18 09:45:00 PRIOR TO RIGHT SHOULDER SCOPE Stop 11/05/18 09:50:00 Anesthesia Type Regional Block Surgical Service Anesthesia Wound Class Clean Technique Details Closure Technique N/A Entire procedure No was performed via laparoscope or robotic assistance Last Modified By: Brandy Paige RN 11/05/18 09:55:35 Post-Care Text: O.730 The patient's care is consistent with the individualized perioperative plan of care General Case Data MAGR Pre-Care Text: A.350.1 Classifies surgical wound Entry 1 Case Information OR MAGR Proc Room Case Level None Wound Class Clean Specialty Anesthesia ASA Class 2 Diagnosis Preop Diagnosis INTERSCALENE BLOCK Postop Same As Preop Yes PRIOR TO RIGHT SHOULDER SCOPE Postop Diagnosis INTERSCALENE BLOCK PRIOR TO RIGHT SHOULDER SCOPE Blunt or No Is the procedure No penetrating injury considered occured prior to Emergent/Urgent? the start of the procedure: Last Modified By: Brandy Paige RN 11/05/18 10:02:15 Post-Care Text: O.760 Patient receives consistent and comparable care regardless of the setting Time Out MAGR Entry 1 Time out date/time 11/05/18 09:41:00 All team members Yes have introduced themselves by name and role Surgeon, Yes Surgeon reviews Yes anesthesia, nurse critical or confirm patient, unexpected steps, site, procedure operative duration, anticipated blood loss Anesthesia team Yes Nursing team Yes reviews any reviews sterility patient-specific (including concerns indicator results) and equipment issues/concerns Antibiotic Is essential N/A imaging displayed? Last Modified By: Brandy Paige RN 11/05/18 10:02:28 Patient Positioning MAGR Pre-Care Text: A.280 Identifies baseline musculoskeletal status Im.40 Positions the patient Im.80 Applies safety devices Entry 1 Procedure Interscalene Body Position Semi-Fowlers Block(Right) Left Arm Position Resting at Side Right Arm Position Resting at Side Left Leg Position Extended Right Leg Position Extended Feet Uncrossed? Yes Press Points Checked Yes Outcome Met (O.80) Yes Last Modified By: Brandy Paige RN 11/05/18 09:46:54 Post-Care Text: E.290 Evaluates musculoskeletal status O.80 Patient is free from signs and symptoms of injury related to positioning Skin Prep MAGR Pre-Care Text: A.30 Verifies allergies Im.270 Performs skin preparation Im.270.1 Implements protective measures to prevent skin and tissue injury due to chemical sources Entry 1 Skin Prep Syntegrity Prep Agents (Im.270) Chlorhexidine Gluconate Prep By Ruslan Bernal MD and Alcohol Prep Area (Im.270) Shoulder, Neck Skin Prep Agent Dry Yes Without Pooling Hair Removal Syntegrity Hair Removal Methods No hair removal performed Outcome Met (O.100) Yes Last Modified By: Brandy Paieg RN 11/05/18 10:00:09 Post-Care Text: E.10 Evaluates for signs and symptoms of physical injury to skin and tissue O.100 Patient is free from signs and symptoms of chemical injury Departure from OR MAGR Entry 1 Present on Depart N/A Via Stretcher Post-op Destination [facility] DFO Condition Intact Description Condition Intact Description Report Given To Gail MCGRATH, Alyce Garcia Airway Maintenance Patient Status Stable Last Modified By: Brandy Paige RN 11/05/18 09:59:48 Case Comments Finalized By: Brandy Paige RN Document Signatures Signed By: Brandy Paige RN 11/05/18 10:04 [facility] MAGR Postoperative Recordon 11-05-2018 MAGR Postoperative Record MAGR Phase II Record Summary Primary Physician: Álvaro Hayes DO Finalized Date/Time: 11/05/18 13:38:50 Pt. Name: DAI GREENWOOD D.O.B./Sex: 1965 MALE Med Rec #: [id number] Physician: Álvaro Hayes DO Financial #: [id number] Pt. Type: D Room/Bed: / Admit/Disch: 11/05/18 07:54:04 - Institution: Phase II Case Times MAGR Pre-Care Text: Patient is free from s/s of injury. Patient remains free from compromised physical state related to surgery or anesthesia. Patient comfort maintained. Patient/family verbalize understanding of discharge instructions. Entry 1 In PACU II 11/05/18 12:00:00 Discharge from PACU 11/05/18 13:28:00 II Last Modified By: Brandy Paige RN 11/05/18 13:38:46 Post-Care Text: The patient remains free from s/s of injury. Patient's vital signs stable, circulation maintained, return to preop mental and physical status, opsite/dressing intact, minimal or absent nausea and vomiting, tolerates po intake. Patient verbalizes adequate pain control. Patient/family express understanding of discharge instructions. Finalized By: Brandy Paige RN Document Signatures Signed By: Brandy Paige RN 11/05/18 13:38 [facility] Pre[facility]ordon 0 11-05-2018 MAGR Preoperative Record MAGR Pre-Op Record Summary Primary Physician: Álvaro Hayes DO Finalized Date/Time: 11/05/18 10:06:08 Pt. Name: DAI GREENWOOD /Sex: 1965 MALE Med Rec #: [id number] Physician: Álvaro Hayes DO Financial #: [id number] Pt. Type: D Room/Bed: / Admit/Disch: 11/05/18 07:54:04 - Institution: Pre-Op Case Times MAGR Pre-Care Text: Patient will be optimally prepared for surgery. Patient is free from s/s of injury. Provide information to patient/family related to plan of care. Verify patient allergies. Confirm identity and verify consent before the operative or invasive procedure. Entry 1 Patient Arrival Time 11/05/18 08:35:00 Preop Departure 11/05/18 09:53:00 Last Modified By: Brandy Paige RN 11/05/18 10:06:06 Post-Care Text: Patient is prepared mentally and physically and is ready for surgery. The patient remains free from s/s of injury. Patient/family express understanding of plan of care and participate in decisions affecting his or her perioperrative plan of care. Allergies documented appropriately. Patient identifiers and consent correct. General Comments: Pt arrives per amb. Pt denies any CP, SOB, Hx of S/S of flu, or sleep apnea. Finalized By: Brandy Paige RN Document Signatures Signed By: Brandy Paige RN 11/05/18 10:06 [facility] Operative Report - Surgeon/P mychal 11-05-2018 Operative Report - Surgeon/Physician Preoperative diagnosis: internal derangement right shoulder He is a capsulitis Postoperative diagnosis: adhesive capsulitis right shoulder Procedure: diagnostic arthroscopy right shoulder Manipulation under anesthesia right shoulder Surgeon: J. Teodoro Abigail, D.O. Anesthesia: Gen. with preoperative interscalene block Indications for surgery: progressive pain and loss of function with failure of conservative treatment. MRI findings suggestive of potential cuff tear and labral pathology Estimated blood loss: scant Complications: there were no palpitations Findings: adhesive capsulitis Procedure summary: the patient was brought to upper suite and was given general anesthesia. I examined his shoulder on anesthesia needs clearly had adhesions. Gentle manipulation ultimately produced 180? of flexion and abduction. 65? of external rotation and 80? of internal rotation. He was placed in the lateral decubitus and the shoulder was sterilely prepped and draped in usual fashion. A timeout was taken. The arm was placed in traction. Posterior portal was established. Upon entering the glenohumeral joint there was mild hemarthrosis I passed the scope beneath the biceps and established an anterior portal. I evacuated the hemarthrosis and inspected the joint. Articular cartilage was intact. There was some trace fraying of the labrum which was trimmed up with the torpedo resector. I then placed a hole, labrum and inspected the labrum and interrogated the labrum and a 360? fashion. Labrum was intact. I then placed a grasper on the biceps tendon and pulled the slack out of the tendon to see if there was any tearing or fraying. Biceps tendon had a healthy appearance. The rotator cuff was grossly normal. The footprint was not visible because rotator cuff was still attached. I repositioned the scope into the subacromial space. And I reestablished the anterior cannula into the subacromial space. I took down the bursa so the rotator cuff but could be visualized. It was grossly normal as visualized from above. Also inspected the undersurface of the acromion and acromioclavicular joint did not appreciate impingement or spurs are hooking. The subacromial space was irrigated and evacuated and the portals were closed with nylon suture. There were no complications. [Electronically Signed on: 11/05/2018 10:56 EDT] Álvaro Hayes DO [Verified on: 11/05/2018 10:56 EDT] Álvaro Hayes DO [facility] Patient Handouton 11-05-[address] YOON POST OPERATIVE SHOULDER INSTRUCTIONS SURGEONS WRITTEN INSTRUTCTIONS: -If you have been given a cryo cuff after surgery you should use it as much as possible for the first 24-48 hours. After that it is optional. TIP: Many patients prefer to use it a little longer because it helps reduce pain -You should wiggle your fingers frequently -Change your dressings in 1 day. If steri-strips have been applied DO NOT remove them. When the wound is clean and dry you may leave it open to air but again DO NOT remove any steri-strips that have been applied -You may shower in 1 day but do not let the water stream directly strike the wound -Do pendulum exercises for at least 10 minutes twice a day -If you have any problems or concerns, please call the office at [phone] -Follow up as scheduled [facility] Progress Note - Nurseon 10-11 Progress Note - Nurse PAT review done per Dr. Anderson, no orders received. [Electronically Signed on: 10/25/2018 14:22 EDT] Aubrie Quiroz RN [Verified on: 10/25/2018 14:22 EDT] Aubrie Quiroz RN [facility] Coding Summaryon 10-24-2018 Coding Summary CODING DATE: 10/24/2018 [facility] STATUS: Home PAYOR: Commercial Insurance APC DESCRIPTION 5733 Level 3 Minor Procedures ADMIT DX: REASON FOR VISIT DX: Z01.818 Encounter for other preprocedural examination FINAL DX: PRINCIPAL: Z01.818 Encounter for other preprocedural examination SECONDARY: I10 Essential (primary) hypertension PYMT PROC APC STAT DESCRIPTION DOCTOR NAME DATE NOTE: The code number assigned matches the documented diagnosis and / or procedure in the patient's chart. However, the narrative phrase printed from the coding software may appear abbreviated, or result in slightly different terminology. Coded By: Rosina Cullen Date Saved: 10/24/2018 11:30 am Normal [facility] .Auto Diff 1on 10-23-2018 Auto Willacy % 10 % Normal 1-12 [facility] Comment on above: Performed By: #### 1 [id number], [id number], [id number] #### [facility] (DEFAULT) [address] [place] [address] 63866 Baso Abs# 0.0 x10 Normal 0.0-0.2 [facility] Comment on above: Performed By: #### 1 [id number], [id number], [id number] #### [facility] (DEFAULT) [address] [place] [address] 48371 Basophils/100 WBC (Bld) 0.5 % Normal 0.2-2.0 [facility] Comment on above: Performed By: #### 1 [id number], [id number], [id number] #### [facility] (DEFAULT) [address] [place] [address] 42488 Eos Abs# 0.5 x10 High 0.0-0.4 [facility] Comment on above: Performed By: #### 1 [id number], [id number], [id number] #### [facility] (DEFAULT) [address] [place] [address] 18115 Eosinophils/100 WBC (Bld) 5.6 % High 0.9-4.0 [facility] Comment on above: Performed By: #### 1 [id number], [id number], [id number] #### [facility] (DEFAULT) [address] [place] [address] 14665 Lymphocytes (Bld) [#/Vol] 3.0 x10 High 1.3-2.9 [facility] Comment on above: Performed By: #### 1 [id number], [id number], [id number] #### [facility] (DEFAULT) [address] [place] [address] 27767 Lymphocytes/100 WBC (Bld) 35 % Normal 14-48 [facility] Comment on above: Performed By: #### 1 [id number], [id number], [id number] #### [facility] (DEFAULT) [address] [place] [address] Willacy Abs# 0.8 x10 Normal 0.0-0.8 [facility] Comment on above: Performed By: #### 1 [id number], [id number], [id number] #### [facility] (DEFAULT) [address] [place] [address] Neut Abs# 4.1 x10 Normal 1.5-9.2 [facility] Comment on above: Performed By: #### 1 [id number], [id number], [id number] #### [facility] (DEFAULT) [address] [place] [address] Neutrophils/100 WBC (Bld) 49 % Normal 44-88 [facility] Comment on above: Performed By: #### 1 [id number], [id number], [id number] #### [facility] (DEFAULT) [address] [place] [address] Standardon 10-23-2018 eGFR Non AA >60 [facility] Comment on above: Performed By: #### 1 [id number], [id number], [id number] #### [facility] (DEFAULT) [address] [place] [address] eGFR AA >60 [facility] Comment on above: Result Comment: [employer] sacha Kidney disease could be indicated at eGFRs of less than 60 ml/min/1.73m2. Kidney Failure is indicated at less than 15 ml/min/1.73m2 Performed By: #### 1 [id number], [id number], [id number] #### [facility] (DEFAULT) [address] [place] [address] 53465 Anion gap [Moles/Vol] 16.0 mmol/L Normal 5.0-19.0 [facility] Comment on above: Performed By: #### 1 [id number], [id number], [id number] #### [facility] (DEFAULT) [address] [place] [address] 08049 Calcium [Mass/Vol] 9.4 mg/dL Normal 8.9-10.3 [facility] Comment on above: Performed By: #### 1 [id number], [id number], [id number] #### [facility] (DEFAULT) [address] [place] [address] 25217 Chloride [Moles/Vol] 102 mmol/L Normal 101-111 [facility] Comment on above: Performed By: #### 1 [id number], [id number], [id number] #### [facility] (DEFAULT) [address] [place] [address] 11204 CO2 [Moles/Vol] 25 mmol/L Normal 21-32 [facility] Comment on above: Performed By: #### 1 [id number], [id number], [id number] #### [facility] (DEFAULT) [address] [place] [address] 72974 Creatinine [Mass/Vol] 1.02 mg/dL Normal 0.90-1.30 [facility] Comment on above: Performed By: #### 1 [id number], [id number], [id number] #### [facility] (DEFAULT) [address] [place] [address] 78084 Glucose [Mass/Vol] 127.0 mg/dL High 74.0-118.0 [facility] Comment on above: Performed By: #### 1 [id number], [id number], [id number] #### [facility] (DEFAULT) [address] [place] [address] 59365 Osmolality [Osmolality] 279 mOsm/L [facility] Comment on above: Performed By: #### 1 [id number], [id number], [id number] #### [facility] (DEFAULT) [address] [place] [address] 47111 Potassium [Moles/Vol] 4.1 mmol/L Normal 3.6-5.1 [facility] Comment on above: Performed By: #### 1 [id number], [id number], [id number] #### [facility] (DEFAULT) [address] [place] [address] 81935 Sodium [Moles/Vol] 139.0 mmol/L Normal 136.0-144.0 [facility] Comment on above: Performed By: #### 1 [id number], [id number], [id number] #### [facility] (DEFAULT) [address] [place] [address] Urea nitrogen [Mass/Vol] 13 mg/dL Normal 8-26 [facility] Comment on above: Performed By: #### 1 [id number], [id number], [id number] #### [facility] (DEFAULT) [address] [place] [address] Urea nitrogen/Creatinine [Mass ratio] 13.0 mg/mg Normal 4.6-16.2 [facility] Comment on above: Performed By: #### 1 [id number], [id number], [id number] #### [facility] (DEFAULT) [address] [place] [address] CBC w/ Auto Diffon Erythrocyte distribution width (RBC) [Ratio] 12.3 % Normal 11.5-15.0 [facility] Comment on above: Performed By: #### 1 [id number], [id number], [id number] #### [facility] (DEFAULT) [address] [place] [address] Hematocrit (Bld) [Volume fraction] 42.4 % Normal 34.8-51.9 [facility] Comment on above: Performed By: #### 1 [id number], [id number], [id number] #### [facility] (DEFAULT) [address] [place] [address] 94116 Hemoglobin (Bld) [Mass/Vol] 14.7 g/dL Normal 11.8-17.7 [facility] Comment on above: Performed By: #### 1 [id number], [id number], [id number] #### [facility] (DEFAULT) [address] [place] [address] 96897 Man Diff? Auto Normal [facility] Comment on above: Performed By: #### 1 [id number], [id number], [id number] #### [facility] (DEFAULT) [address] [place] [address] 65290 MCH (RBC) [Entitic mass] 32 pg Normal 24-34 [facility] Comment on above: Performed By: #### 1 [id number], [id number], [id number] #### [facility] (DEFAULT) [address] [place] [address] 13395 MCHC (RBC) [Mass/Vol] 35 g/dL Normal 26-37 [facility] Comment on above: Performed By: #### 1 [id number], [id number], [id number] #### [facility] (DEFAULT) [address] [place] [address] 87053 MCV (RBC) [Entitic vol] 91 fL Normal 81-100 [facility] Comment on above: Performed By: #### 1 [id number], [id number], [id number] #### [facility] (DEFAULT) [address] [place] [address] 82746 Platelet mean volume (Bld) [Entitic vol] 8.9 fL Normal 6.3-10.2 [facility] Comment on above: Performed By: #### 1 [id number], [id number], [id number] #### [facility] (DEFAULT) [address] [place] [address] 95276 Platelets (Bld) [#/Vol] 255 x10 Normal 138-427 [facility] Comment on above: Performed By: #### 1 [id number], [id number], [id number] #### [facility] (DEFAULT) [address] [place] [address] 17068 RBC (Bld) [#/Vol] 4.67 x10 Normal 3.70-5.30 [facility] Comment on above: Performed By: #### 1 [id number], [id number], [id number] #### [facility] (DEFAULT) [address] [place] [address] 07820 WBC (Bld) [#/Vol] 8.5 x10 Normal 3.5-10.5 [facility] Comment on above: Performed By: #### 1 [id number], [id number], [id number] #### [facility] (DEFAULT) [address] [place] [address] 09444 Vital Signs Date Time Vital Sign Value Performing Clinician Facility 02-27-2023 15:30-0500 Body height 172.72 cm James Ball Other [facility] Other 02-27-2023 15:30-0500 Body mass index (BMI) [Ratio] 30.56 kg/m2 James Ball Other [facility] Other 02-27-2023 15:30-0500 Body weight 91.17 kg James Ball Other [facility] Other 02-27-2023 15:30-0500 Diastolic blood pressure 87 mm[Hg] James Ball Other [facility] Other 02-27-2023 15:30-0500 Systolic blood pressure 163 mm[Hg] James Ball Other [facility] Other 09-26-2022 15:30-0400 Body height 172.72 cm James Ball Other [facility] Other 09-26-2022 15:30-0400 Body mass index (BMI) [Ratio] 31.35 kg/m2 James Ball Other [facility] Other 09-26-2022 15:30-0400 Body weight 93.53 kg James Ball Other [facility] Other 09-26-2022 15:30-0400 Diastolic blood pressure 80 mm[Hg] James Ball Other [facility] Other 09-26-2022 15:30-0400 Respiratory rate 12 /min James Ball Other [facility] Other 09-26-2022 15:30-0400 Systolic blood pressure 128 mm[Hg] James Ball Other [facility] Other Encounters Encounter Date Encounter Type Care Provider Facility Start: 03-02-2023 End: 03-02-2023 ambulatory James Khan Other [facility] Other Start: 03-02-2023 Telephone encounter James Bill [facility] Start: 02-27-2023 End: 02-27-2023 ambulatory James Bill Other [facility] Other Start: 02-27-2023 Encounter for genera l adult medical examination without abnormal findings James Khan [facility] Start: 02-27-2023 Periodic preventive med est patient 40-64yrs James Khan [facility] Start: 02-27-2023 Telephone encounter James Khan [facility] Start: 02-22-2023 End: 02-22-2023 ambulatory James Khan Other [facility] Other Start: 02-22-2023 Encounter for genera l adult medical examination without abnormal findings James Khan [facility] Start: 02-22-2023 Telephone encounter James Bill [facility] Start: 09-26-2022 End: 09-26-2022 ambulatory James Bill Other [facility] Other Start: 09-26-2022 Office outpatient vi sit 25 minutes James Khan [facility] Start: 02-22-2022 Adult health examination James Khan Other [facility] Other Start: 02-17-2022 Encounter for genera l adult medical examination without abnormal findings DR JAMES KHAN [facility] Start: 02-10-2022 End: 02-11-[address] JAMES KHAN Facility:[facility] Start: 02-10-2022 End: 02-11-2022 Encounter for general adult medical examination without abnormal findings DR JAMES KHAN Facility:[facility] Start: 02-08-2022 End: 02-09-[address] JAMES KHAN Facility:[facility] Start: 07-20-2021 End: 07-21-[address] JAMES KHAN Facility:[facility] Start: 05-28-2021 End: 05-29-[address] JAMES KHAN Facility:[facility] Procedures Date Procedure Procedure Detail Performing Clinician Start: 02-10-[address] DUBON IN BILL Comment on above: Performed By: #### P [facility] #### [facility] [address] [place] [address] Dr. David Lares Start: 01-24-2018 General examination of patient James Khan Other Depression screening Bryanandrew olmedo Bill Other Immunizations Immunization Date Immunization Notes Care Provider Fa [facility] 02-27-2023 influenza, injectabl e, quadrivalent, contains preservative [facility] Other [facility] Other 03-19-2022 COVID-19 Vaccine Pfi zer - Documentation Purposes Only [facility] Other [facility] Other 02-16-2022 influenza virus vaccine, split virus (incl. purified surface antigen) [facility] Other [facility] Other 03-10-2021 COVID-19 Vaccine Pfi zer - Documentation Purposes Only James [facility] Other [facility] Other 01-15-2021 influenza virus vaccine, split virus (incl. purified surface antigen) [facility] Other [facility] Other 06-20-2020 COVID-19 Vaccine Pfi zer - Documentation Purposes Only James [facility] Other [facility] Other 05-30-2020 COVID-19 Vaccine Pfi zer - Documentation Purposes Only James [facility] Other [facility] Other 01-14-2020 influenza virus vaccine, split virus (incl. purified surface antigen) [facility] Other [facility] Other Payers Date Payer Category Payer Unknown [id number] 2.16.84 [id number] 1965 Unknown [id number] 2.16.84 [id number] 1965 Unknown [id number] 2.16.84 [id number] 1965 Unknown [id number] 2.16.84 [id number] 1960 Unknown [id number] Unknown [id number] Social History Date Type Detail Facility Sex Assigned At [facility] Other Sex Assigned At Sex Assigned At Bir th [facility] Other Evaluation note 02-27-2023 Note Date & Type Note Facility 02-27-2023 Evaluation note Encounter Date Diagnosis Assessment Notes Feb, Wellness examination (ICD-10 - Z00.00) Healthy diet and exercise. Reviewed age-appropriate preventive testing recommended. Feb, Type 2 diabetes mellitus with hyperglycemia, without long-term current use of insulin (ICD-10 - E11.65) This patient is following a comprehensive diabetic treatment plan. They are checking their feet daily for calluses and nonhealing ulcers. They are being seen for yearly dilated eye examinations. Goals: SBP less than 130, LDL less than 100, FBS less than 140, A1C less than 7%. They are checking their BS daily, will which are reviewed at the office visit. Continue regular routine monitoring of A1C,] Microalbumin, Dilated eye exam and Foot exam Feb, Primary hypertension (ICD-10 - I10) This patient is instructed to consume a healthy, low-fat, low-salt diet. They are also encouraged to continue exercise to achieve/maintain a normal BMI. Patient is instructed on home BP measurements: - rest for 5 minutes w/o talking- positioned w/ feet on floor and arm supported- average best 2/3 readings w/ goal < 135/85 _update office w/ results of home readings Feb, Other obesity due to excess calories (ICD-10 - E66.09) This patient has been instructed on a low-fat, high-fiber diet. They are instructed to reduce calories, portion sizes and snacks. It is recommended that they exercise for 30 minutes, 3-5 times weekly. Feb, Body mass index [BMI] 30.0-30.9, adult (ICD-10 - Z68.30) Feb, Strain of left rotator cuff capsule, subsequent encounter (ICD-10 - S46.012D) ROM exercises, heat/ice and Tylenol. Refer for therapy IA injection? Refer to Orthopedics? Feb, Screening PSA (prostate specific antigen) (ICD-10 - Z12.5) Yearly PSA and [facility] Other Evaluation note 02-22-2023 Note Date & Type Note Facility 02-22-2023 Evaluation note Encounter Date Diagnosis Assessment Notes Feb, Wellness examination (ICD-10 - Z00.00) [facility] Other Evaluation note Note Date & Type Note Facility Evaluation note [facility] Other Evaluation note Note Date & Type Note Facility Evaluation note No Information [facility] Other History general Narrative - Reported Note Date & Type Note Facility History general Narrative - Reported [facility] Other History general Narrative - Reported Note Date & Type Note Facility History general Narrative - Reported Type Medical History Cholelithiases Medical History Adhesive capsulitis of right shoulder Medical History Bilateral nephrolithiasis Medical History Benign non-nodular p rostatic hyperplasia with lower urinary tract symptoms Medical History Essential hypertension Medical History Controlled type 2 di abetes mellitus with hyperglycemia, without long-term current use of insulin Medical History History of nephrolithiasis Medical History Exogenous obesity Medical History Arthritis of right shoulder jaspreet on Surgical History Pylonidal cyst 1979 Surgical History [facility] 1997 Surgical History Colonoscopy 2010 Surgical History Arthroscopy 10/2010 Hospitalization History see surgical history [facility] Other Summary Purpose Family History No Family History Records FoundNo Family History Records Found Advance Directives No Advanced Directives Records FoundNo Advanced Directives Records Found Hospital Course Note [facility] SURGERY Clinical Discharge Summary PERSON INFORMATION Name DAI GREENWOOD Age 53 Years 1965 Sex MALE Language Nepalese PCP James Khan Marital Status Single [facility] Service Ambulatory Surgery Acct# Arrival 11/05/2018 07:54:04 Visit Reason SURGERY - RIGHT SHOULDER SCOPE Acuity LOS 019 02:29 Address: [address] [place] [address] Comment: PROVIDER INFORMATION VITALS INFORMATION Vital Sign Triage Latest Temp Oral Temp Temporal Temp Intravascular Temp Axillary Temp Rectal 02 Sat 99 % 94 % Respiratory Rate Peripheral Pulse Rate Apical Heart Rate Blood Pressure / 96 mmHg / 86 mmHg Comment: MEDICAL INFORMATION Allergy Info: No Known Medication Allergies Prescriptions Given: acetaminophen (Tylenol Extra Strength 500 mg oral tablet) 2 tab(s) Oral 2 times a day. acetaminophen-oxycodone (Percocet 5/325 oral tablet) 1 tab(s) Oral Every 6 hours as needed for pain., Dr. Hayes's home RX amLODIPine (amLODIPine 5 mg oral tablet) 1 (more content not included)... Note Patient: DAI GREENWOOD RN: 16 Age: 53 years Sex: MALE : 1965 Associated Diagnoses: None Author: Ruslan Bernal MD Postoperative Information Post Operative Note: Post Anesthesia Care Unit. Anesthetic utilized: General. Regional: Interscalene Block. Health Status Allergies: Allergic Reactions (All) No Known Medication Allergies Physical Examination VS/Measurements Vital Signs (last 24 hrs) Last Charted Heart Rate Peripheral 76 bpm (NOV 05 11:20) Resp Rate H 21br/min (NOV 05 11:20) SBP H 141mmHg (NOV 05 11:20) DBP 82 mmHg (NOV 05 11:20) SpO2 98 % (NOV 05 11:20) Pain assessment: Self-reports no pain. General: Alert and oriented, No acute distress. Respiratory: Respirations are non-labored. Cardiovascular: Normal rate, Regular rhythm. Review / Management Condition: Stable. Assessment Anesthetic outcome No anesthetic complications noted. Adequate pain relief. No Complaint of nausea and vomiting. Plan Transfer/ Discharge: Patient can be disch (more content not included)... Procedure Findings Note Patient: DAI GREENWOOD RN: [id number]- Age: 53 years Sex: MALE : 1965 Associated Diagnoses: None Author: Ruslan Bernal MD Postoperative Information Post Operative Note: Post Anesthesia Care Unit. Anesthetic utilized: General. Regional: Interscalene Block. Health Status Allergies: Allergic Reactions (All) No Known Medication Allergies Physical Examination VS/Measurements Vital Signs (last 24 hrs) Last Charted Heart Rate Peripheral 76 bpm (NOV 05 11:20) Resp Rate H 21br/min (NOV 05:) SBP H 141mmHg (NOV 05:20) DBP 82 mmHg (NOV 05:20) SpO2 98 % (NOV 05:) Pain assessment: Self-reports no pain. General: Alert and oriented, No acute distress. Respiratory: Respirations are non-labored. Cardiovascular: Normal rate, Regular rhythm. Review / Management Condition: Stable. Assessment Anesthetic outcome No anesthetic complications noted. Adequate pain relief. No Complaint of nausea and vomiting. Plan Transfer/ Discharge: Patient can be disch (more content not included)... Additional Source Comments (unrecognized sect ion and content) No Status Records FoundNo Status Records Found INFORMATION SOURCE (unrecogn ized section and content) DATE CREATED AUTHOR 11/11/2018 [facility] DATE CREATED AUTHOR AUTHOR'S ORGANIZ ATION 02/18/2022 [facility] REASON FOR VISIT (unrecogniz ed section and content) [facility] for BP readings FOR RECORDS PERTAINING TO PATIENTS WHO ARE OR HAVE BEEN ENROLLED IN A CHEMICAL DEPENDENCY/SUBSTANCEABUSE PROGRAM, SOME INFORMATION MAY BE OMITTED. This clinical summary was aggregated from multiple sources. Caution should be exercised in using it in the provision of clinical care. This summary normalizes information from multiple sources, and as a consequence, information in this document may materially change the coding, format and clinical context of patient data. In addition, data may be omitted in some cases. CLINICAL DECISIONS SHOULD BE BASED ON THE PRIMARY CLINICAL RECORDS. [email or web address] provides no warranty or guarantee of the accuracy or completeness of information in this document.
[2023-08-24 15:50] LABS: Estimated Average Glucose 143 mg/dL; Glycohemoglobin A1C 6.6 % (4.5-6.2)
== END 2023-08-24 15:26 | disposition home or self-care (01) ==
LOC: LAB 15:26
PROVIDERS: PCP Internal Medicine; Visit Provider Internal Medicine
DX: E11.65 Type 2 diabetes mellitus with hyperglycemia (principal)
CPT/HCPCS: 36415; 83036

== ENCOUNTER 2024-02-22 13:05 | Outpatient (OUT) | payer OTHER, SELFPAY ==
[2024-02-22 13:44] LABS: Basophils Absolute Auto 0.1 10^3/uL (0.0-0.1); Basophils Percent Auto 0.6 % (0.2-2.0); Eosinophils Absolute Auto 0.2 10^3/uL (0.0-0.7); Eosinophils Percent Auto 2.4 % (0.9-7.0); Hematocrit 44.9 % (42.0-54.0); Hemoglobin 15.5 g/dL (14.0-18.0); Immature Granulocytes Abs Auto 0.01 10^3/uL (0.00-0.03); Immature Granulocytes Pct Auto 0.1 % (0.0-0.5); Lymphocytes Absolute Auto 2.7 10^3/uL (1.2-3.8); Mean Corpuscular HGB Conc 34.5 g/dL (29.9-35.2); Mean Corpuscular Hemoglobin 32.2 pg (25.9-34.0); Mean Corpuscular Volume 93.3 fL (80.0-94.0); Mean Platelet Volume 9.1 fL (9.5-13.5); Monocytes Absolute Auto 0.7 10^3/uL (0.3-0.8); Monocytes Percent Auto 8.5 % (1.7-12.0); Neutrophils Absolute Auto 4.7 10^3/uL (1.4-6.5); Neutrophils Percent Auto 56.4 % (43.0-75.0); Platelet Count 254 10^3/uL (150-450); Red Blood Count 4.81 10^6/uL (4.70-6.10); Red Cell Distribution Width 11.8 % (11.0-15.0); White Blood Count 8.3 10^3/uL (4.0-11.0)
[2024-02-22 13:44] LABS: Microalbum Creatinine Ratio Ur 10.4 mg/g (0.0-29.9); Microalbumin Urine Random 1.4 mg/dL (<=30.0)
[2024-02-22 13:46] LABS: Estimated Average Glucose 157 mg/dL; Glycohemoglobin A1C 7.1 % (4.5-6.2)
[2024-02-22 13:57] LABS: Carbon Dioxide 32.1 mmol/L (21.0-32.0); Chloride 103 mmol/L (98-107); Potassium 4.1 mmol/L (3.5-5.1); Sodium 141 mmol/L (136-145)
[2024-02-22 13:58] LABS: Alanine Aminotransferase 59 U/L (16-63); Albumin Level 3.9 g/dL (3.4-5.0); Alkaline Phosphatase 63 U/L (46-116); Aspartate Amino Transferase 31 U/L (15-37); Bilirubin Total 0.6 mg/dL (0.2-1.0); Calcium 8.9 mg/dL (8.5-10.1); Chol HDL Ratio 3.8; Cholesterol 163 mg/dL (<=200); Estimated GFR (African America >60 (>=60 mL/min/1.73m^2); Estimated GFR (Non-African Ame >60 (>=60 mL/min/1.73m^2); Glucose 153 mg/dL (74-106); HDL Cholesterol 43 mg/dL (40-60); Total Protein 7.9 g/dL (6.4-8.2); Triglycerides 115 mg/dL (<=150)
[2024-02-22 14:11] LABS: Prostate Specific Antigen Scrn 0.64 ng/mL (<=4.00)
== END 2024-02-22 13:06 | disposition home or self-care (01) ==
LOC: LAB 13:07
PROVIDERS: PCP Internal Medicine; Visit Provider Internal Medicine
DX: Z00.00 Encounter for general adult medical examination without abnormal findings (principal); Z12.5 Encounter for screening for malignant neoplasm of prostate
CPT/HCPCS: 36415; 80053; 80061; 82043; 82570; 83036; 85025; G0103

== ENCOUNTER 2024-06-08 08:39 | Outpatient (OUT) | payer OTHER, SELFPAY ==
--- OUTSIDE RECORDS SUMMARY | 2024-06-08 08:42 | XMS_ITS | CCD ---
Author Organization [facility] Care Team Providers Care Lead Java Developer Architect Name Role Phone BILL, DR NUGENT Attending [...] or physicia Propensity to adverse reactions Comment:Done [employer] Other Medications Current Medications Medication Drug Class(es) Dates Sig (Normalized) Sig (Original) amLODIPine 5 mg oral tablet (8 sources) Dihydropyridine Calcium Channel Hemant Start: 04-24-2024 take 1 tablet by mouth once daily Amlodipine 5 mg tablet Active 0 .ROUTE .COMPLEX April 24, 2024 11:00am TAKE 1 TABLET BY MOUTH EVERY DAY Start: 08-29-2023 End: 04-24-2024 take 1 tablet by mouth once daily Amlodipine 5 mg tablet Discontinued 5 MG PO Daily August 29, 2023 12:00am April 24, 2024 11:01am take 1 tablet by estuardo th once daily amLODIPine Besylate 5 MG TAKE 1 TABLET BY MOUTH EVERY DAY Active carvedilol 25 mg oral tablet (9 sources) alpha-Adrenergic Hemant, beta-Adrenergic Hemant Start: 06-21-2023 take 1 tablet by mouth twice daily Carvedilol 25 mg tablet Active 0 .ROUTE .COMPLEX 60 June 21, 2023 1:30pm TAKE 1 TABLET BY MOUTH TWICE A DAY Start: 06-21-2023 End: 06-21-2023 take 1 tablet by mouth twice daily Carvedilol 25 mg tablet Discontinued 25 MG PO Twice daily June 21, 2023 12:00am June 21, 2023 1:31pm take 1 tablet by estuardo th twice daily Carvedilol 25 MG TAKE 1 TABLET BY MOUTH TWICE A DAY Active glimepiride 1 mg oral tablet (1 source) Sulfonylurea Start: 05-21-2024 take 1 tablet by mouth once daily Glimepiride 1 mg tablet Active 1 MG PO Daily May 21, 2024 12:00am SITagliptin 50 mg oral tablet (2 sources) Dipeptidyl Peptidase 4 Inhibitor Start: 04-03-2024 take 1 tablet by mouth once daily Sitagliptin Phosphate (Januvia) 50 mg tablet Active 0 .ROUTE .COMPLEX April 03, 2024 8:02am TAKE 1 TABLET BY MOUTH EVERY DAY Start: 03-04-2024 End: 04-03-2024 take 1 tablet by mouth once daily Sitagliptin Phosphate (Januvia) 50 mg tablet Discontinued 50 MG PO Daily March 04, 2024 1:00am April 03, 2024 8:02am telmisartan 20 mg oral tablet (1 source) Angiotensin 2 Receptor Hemant Start: 02-21-2024 take 1 tablet by mouth once daily Telmisartan 20 mg tablet Active 20 MG PO Daily February 21, 2024 1:00am Completed/Discontinued Medications Medication Drug Class(es) Dates Sig (Normalized) Sig (Original) linagliptin 5 mg oral tablet (1 source) Dipeptidyl Peptidase 4 Inhibitor Start: 02-27-2024 End: 03-04-2024 take 1 tablet by mouth once daily Linagliptin (Tradjenta) 5 mg tablet Discontinued 5 MG PO Daily February 27, 2024 1:00am March 04, 2024 2:06pm linagliptin 2.5 mg / metFORMIN hydrochloride 1000 mg oral tablet (2 sources) Biguanide, Dipeptidyl Peptidase 4 Inhibitor Start: 02-22-2024 End: 02-26-2024 take 2.5-1000 mg by mouth once Linagliptin-Metfor min (Jentadueto) 2.5-1,000 mg tablet Discontinued 1 TAB PO Once February 23, 2024 3:20pm February 26, 2024 3:53pm metFORMIN hydrochloride 1000 mg oral tablet (8 sources) Biguanide Start: 01-29-2024 End: 02-23-2024 Metformin 1,000 mg tablet Discontinued 0 .ROUTE .COMPLEX 60 January 29, 2024 10:45am February 23, 2024 3:20pm TAKE 1 TABLET TWICE A DAY BEFORE BREAKFAST AND EVENING MEAL Start: 08-29-2023 End: 01-29-2024 take 1 tablet by mouth twice daily at mealtime Metformin 1,000 mg tablet Discontinued 1000 MG PO Twice daily with meals August 29, 2023 12:00am January 29, 2024 10:45am Start: 09-26-2022 metFORMIN hydrochloride 1000 mg / SITagliptin 50 mg oral tablet (1 source) Biguanide, Dipeptidyl Peptidase 4 Inhibitor Start: 02-26-2024 End: 02-27-2024 take 1 tablet by mouth once Sitagliptin Phos-Metformin (Janumet) 50-1,000 mg tablet Discontinued 1 TAB PO Once 30 February 26, 2024 1:00am February 27, 2024 6:43pm Problems Active Problems Problem Classification Problem Date Documented Date Episodic/Chronic Biliary tract disease (6 sources) Biliary calculus; Translations: [Calculus of gallbladder without cholecystitis without obstruction] Episodic Calculus of urinary tract (16 sources) History of calculus of kidney; Translations: [Personal history of urinary calculi] 08-27-2023 Episodic Diabetes mellitus with complications (16 sources) Type 2 diabetes mellitus with hyperglycemia; Translations: [Type 2 diabetes mellitus] Onset: 07-20-2021 Chronic Essential hypertension (13 sources) Essential (primary) hypertension; Translations: [Essential hypertension] Onset: 07-23-2021 Chronic Hyperplasia of prostate (9 sources) Lower urinary tract symptoms due to benign prostatic hypertrophy; Translations: [Benign prostatic hyperplasia with lower urinary tract symptoms] Onset: 11-23-2017 08-29-2023 Chronic Osteoarthritis (1 source) Localized, primary osteoarthritis [...] Chronic Other nutritional; endocrine; and metabolic disorders (3 sources) Obesity; Translations: [Obesity, unspecified] Onset: 02-22-2022 08-29-2023 Chronic Other nutritional; endocrine; and metabolic disorders (1 source) Body mass index (BMI) 30.0-30.9, adult Chronic Other nutritional; endocrine; and metabolic disorders (1 source) Obesity, unspecified; Translations: [Obesity, unspecified] 05-21-2024 Chronic Other screening for suspected conditions (not mental disorders or infectious disease) (3 sources) Encounter for screening for malignant neoplasm of prostate; Translations: [Patient encounter status] Onset: 02-17-2022 Episodic Comment on above: PSA: 0.66 - 02/2022, 0.83 - 02/2023, 0.64 - 02/2024, Sprains and strains (2 sources) Strain of [...] Test Name Value Interpretation Reference Range Facility Basophils Auto (Bld) [#/Vol] on 02-22-2024 Basophils (Bld) [#/Vol] Automated basophil count 0.0-0.1 [facility] Basophils/100 WBC Auto (Bld) on 02-22-2024 Basophils/100 WBC (Bld) Automated basophil % 0.2-2.0 [facility] Cholesterol in LDL Calc [Mas s/Vol]on 02-22-2024 Cholesterol in LDL [Mass/Vol] Cholesterol in LDL [Mass/volume] in Serum or Plasma by calculation [facility] Comment on above: <100 mg/dl [id number] 0-129 mg/dl NEAR OR ABOVE [id number] mg/dl BORDERLINE [id number] mg/dl HIGH>190 mg/dl VERY HIGH Cholesterol in VLDL Calc [Ma ss/Vol]on 02-22-2024 Cholesterol in VLDL [Mass/Vol] Cholesterol in VLDL [Mass/volume] in Serum or Plasma by calculation [facility] Eosinophils/100 WBC Auto (Bl d)on 02-22-2024 Eosinophils/100 WBC (Bld) Automated eosinophil % 0.9-7.0 [facility] Erythrocyte distribution wid th Auto (RBC) [Ratio]on 02-22-2024 Erythrocyte distribution width (RBC) [Ratio] Erythrocyte distribution width [Ratio] by Automated count 11.0-15.0 [facility] Estimated glomerular filtrat ion rate (GFR) non- Americanon 02-22-2024 GFR/1.73 sq M.predicted among non-blacks MDRD (S/P/Bld) [Vol rate/Area] Estimated glomerular filtration rate (GFR) non- >=60 mL/min/1.73m 2 [facility] Globulin Calc (S) [Mass/Vol] on 02-22-2024 Globulin (S) [Mass/Vol] Serum globulin measurement by calculation (mass/volume) [facility] Glucose mean value [Mass/vol ume] in Blood Estimated from glycated hemoglobinon 02-22-2024 Average glucose Estimated from glycated hemoglobin (Bld) [Mass/Vol] Glucose mean value [Mass/volume] in Blood Estimated from glycated hemoglobin [facility] Hematocrit Auto (Bld) [Volum e fraction]on 02-22-2024 Hematocrit (Bld) [Volume fraction] Hematocrit [Volume Fraction] of Blood by Automated count 42.0-54.0 [facility] Hemoglobin [Mass/volume] in Bloodon 02-22-2024 Hemoglobin (Bld) [Mass/Vol] Hemoglobin [Mass/volume] in Blood 14.0-18.0 [facility] Laboratory - Chemistry and C hemistry - challengeon 02-22-2024 Albumin [Mass/Vol] 3.9 g/dL 3.4-5.0 [facility] ALP [Catalytic activity/Vol] 63 U/L 46-116 [facility] ALT [Catalytic activity/Vol] 59 U/L 16-63 [facility] AST [Catalytic activity/Vol] 31 U/L 15-37 [facility] Bilirubin [Mass/Vol] 0.6 mg/dL 0.2-1.0 [facility] Calcium [Mass/Vol] 8.9 mg/dL 8.5-10.1 [facility] Chloride [Moles/Vol] 103 mmol/L 98-107 [facility] Cholesterol [Mass/Vol] 163 mg/dL <=200 [facility] Cholesterol in HDL [Mass/Vol] 43 mg/dL 40-60 [facility] Comment on above: > or =60 mg/dl - LOW CARDIOVASCULAR RISK<40 mg/dl - HIGH CARDIOVASCULAR RISK CO2 [Moles/Vol] 32.1 mmol/L High 21.0-32.0 [facility] Creatinine [Mass/Vol] 1.14 mg/dL 0.70-1.30 [facility] GFR/1.73 sq M.predicted MDRD (S/P/Bld) [Vol rate/Area] mL/min/{1.73_m2} >=60 mL/min/1.73m 2 [facility] Glucose [Mass/Vol] 153 mg/dL High 74-106 [facility] Potassium [Moles/Vol] 4.1 mmol/L 3.5-5.1 [facility] Protein [Mass/Vol] 7.9 g/dL 6.4-8.2 [facility] Sodium [Moles/Vol] 141 mmol/L 136-145 [facility] Triglyceride [Mass/Vol] 115 mg/dL <=150 [facility] Urea nitrogen [Mass/Vol] 8.0 mg/dL 7.0-18.0 [facility] Urea nitrogen/Creatinine [Mass ratio] 7.0 mg/mg [facility] Laboratory - Hematology and Cell countson 02-22-2024 HbA1c (Bld) [Mass fraction] 7.1 % High 4.5-6.2 [facility] Comment on above: ADA RECOMMENDED LIMI T 4.0 - 6.0ADA THERAPEUTIC TARGET < 7.0ACTION SUGGESTED> 7.0 Immature granulocytes/100 WBC (Bld) 0.1 % 0.0-0.5 [facility] Leukocytes [#/volume] correc ricki for nucleated erythrocytes in Blood by Automated counon 02-22-2024 WBC corrected for nucl RBC Auto (Bld) [#/Vol] Leukocytes [#/volume] corrected for nucleated erythrocytes in Blood by Automated coun 4.0-11.0 [facility] Lymphocytes Auto (Bld) [#/Vo l]on 02-22-2024 Lymphocytes (Bld) [#/Vol] Lymphocytes [#/volume] in Blood by Automated count 1.2-3.8 [facility] Lymphocytes/100 WBC Auto (Bl d)on 02-22-2024 Lymphocytes/100 WBC (Bld) Lymphocytes/100 leukocytes in Blood by Automated count 20.5-60.0 [facility] MCH Auto (RBC) [Entitic mass ]on 02-22-2024 MCH (RBC) [Entitic mass] MCH [Entitic mass] by Automated count 25.9-34.0 [facility] MCHC Auto (RBC) [Mass/Vol]on 02-22-2024 MCHC (RBC) [Mass/Vol] MCHC [Mass/volume] by Automated count 29.9-35.2 [facility] MCV Auto (RBC) [Entitic vol] on 02-22-2024 MCV (RBC) [Entitic vol] MCV [Entitic volume] by Automated count 80.0-94.0 [facility] Microalbumin [Mass/volume] i n Urineon 02-22-2024 Albumin DL <= 20 mg/L (U) [Mass/Vol] Microalbumin [Mass/volume] in Urine <=30.0 [facility] Monocytes Auto (Bld) [#/Vol] on 02-22-2024 Monocytes (Bld) [#/Vol] Automated blood monocyte count 0.3-0.8 [facility] Monocytes/100 WBC Auto (Bld) on 02-22-2024 Monocytes/100 WBC (Bld) Automated monocyte % 1.7-12.0 [facility] Neutrophils Auto (Bld) [#/Vo l]on 02-22-2024 Neutrophils (Bld) [#/Vol] Neutrophils [#/volume] in Blood by Automated count 1.4-6.5 [facility] Neutrophils/100 WBC Auto (Bl d)on 02-22-2024 Neutrophils/100 WBC (Bld) Automated neutrophil % 43.0-75.0 [facility] No Panel Informationon 02-21 Eosinophils # (Auto) 0.2 10 3/uL 0.0-0.7 [facility] Immature Granulocyte # (Auto) 0.01 10 3/uL 0.00-0.03 [facility] Prostate Specific Antigen Screen 0.64 ng/mL <=4.00 [facility] Urine Random Creatinine 133.90 mg/dL 20.00-300.00 [facility] Platelet mean volume Auto (B ld) [Entitic vol]on 02-22-2024 Platelet mean volume (Bld) [Entitic vol] Platelet mean volume [Entitic volume] in Blood by Automated count Low 9.5-13.5 [facility] Platelets Auto (Bld) [#/Vol] on 02-22-2024 Platelets (Bld) [#/Vol] Platelets [#/volume] in Blood by Automated count 150-450 [facility] RBC Auto (Bld) [#/Vol]on RBC (Bld) [#/Vol] Erythrocytes [#/volume] in Blood by Automated count 4.70-6.10 [facility] Serum or plasma albumin/glob ulin mass ratioon 02-22-2024 Albumin/Globulin [Mass ratio] Serum or plasma albumin/globulin mass ratio [facility] Serum or plasma anion gap de terminationon 02-22-2024 Anion gap [Moles/Vol] Serum or plasma anion gap determination [facility] Serum or plasma total choles terol/high density lipoprotein (HDL) cholesterol mass luís 02-22-2024 Cholesterol.total/C holesterol in HDL [Mass ratio] Serum or plasma total cholesterol/high density lipoprotein (HDL) cholesterol mass rat [facility] Comment on above: 3.3 - 4.4 LOW RISK4. 4 - 7.1 AVERAGE RISK7.1 - 11.0 MODERATE RISK>11.0 HIGH RISK Urine microalbumin/creatinin e mass ratioon 02-22-2024 Albumin/Creatinine DL <= 20 mg/L (U) [Mass ratio] Urine microalbumin/creatini ne mass ratio 0.0-29.9 [facility] Comment on above: NO MICROALBUMINURIA 0-29 MG/GCLINICAL MICROALBUMINURIA 30-300 MG/GMACROALBUMINURIA >300 MG/G Glucose mean value [Mass/vol ume] in Blood Estimated from glycated hemoglobinon 08-24-2023 Average glucose Estimated from glycated hemoglobin (Bld) [Mass/Vol] 143 mg/dL [facility] Laboratory - Hematology and Cell countson 08-24-2023 HbA1c (Bld) [Mass fraction] 6.6 % 4.5-6.2 [facility] Comment on above: ADA RECOMMENDED LIMI T 4.0 - 6.0ADA THERAPEUTIC TARGET < 7.0ACTION SUGGESTED> 7.0 Comprehensive Metabolic Pane meagan 02-23-2023 Albumin [Mass/Vol] 4.117901 g/dL Normal 3.4-5.0 g/dL N [facility] [employer] Other ALP [Catalytic activity/Vol] 57 U/L Normal 46-116 U/L [employer] Other ALT [Catalytic activity/Vol] 42 U/L Normal 16-63 U/L [employer] Other Anion gap [Moles/Vol] 15.1 mmol/L [employer] Other AST [Catalytic activity/Vol] 20 U/L Normal 15-37 U/L [employer] Other Bilirubin [Mass/Vol] 0.0410247 mg/dL Normal 0.2-1.0 mg/dL [employer] Other Calcium [Mass/Vol] 8.4157323 mg/dL Normal 8.5-10 .1 mg/dL [employer] Other Chloride [Moles/Vol] 102 mmol/L Normal 98-107 mmol/L [employer] Other CO2 [Moles/Vol] 29.85228591 mmol/L Normal 21.0-3 2.0 mmol/L [employer] Other Creatinine [Mass/Vol] 1.27589879 mg/dL Normal 0.70-1.30 mg/dL [employer] Other Glucose [Mass/Vol] 112 mg/dL High 74-106 mg/dL [facility] [employer] Other Potassium [Moles/Vol] 4.21541285 mmol/L Normal 3.5-5.1 mmol/L [employer] Other Protein [Mass/Vol] 8.098973 g/dL Normal 6.4-8.2 g/dL [facility] [employer] Other Sodium [Moles/Vol] 142 mmol/L Normal 136-145 mmol/L [employer] Other Urea nitrogen [Mass/Vol] 14.8372858 mg/dL Normal 7.0-18.0 mg/dL [employer] Other Urea nitrogen/Creatinine [Mass ratio] 12.4 mg/mg [employer] Other Comprehensive Metabolic Panel 3.8 g/dL [employer] Other Comprehensive Metabolic Panel 1.1 [employer] Other Comprehensive Metabolic Panel see note [employer] Other Comprehensive Metabolic Panel >60 >=60 [employer] Other Lipid Panelon 02-23-2023 Cholesterol [Mass/Vol] 167 mg/dL <=200 mg/dL [facility] Other Cholesterol in HDL [Mass/Vol] 42 mg/dL Normal 40-60 mg/dL [facility] Other Triglyceride [Mass/Vol] 103 mg/dL <=150 mg/dL [facility] Other Lipid Panel 104.4 mg/dL [facility] Other Lipid Panel 20.6 mg/dL [facility] Other Lipid Panel 4.0 [facility] Other PSA SCREENINGon 02-23-2023 PSA SCREENING 0.83 ng/mL <=4.00 ng/mL [facility] Other CBC AUTO DIFFon 02-10-2022 BASO # 0.1 103/ul Normal 0.0-0.1 [facility] Comment on above: Performed By: #### C BC #### [facility] [address] [place] [address] Dr. David Lares Basophils/100 WBC (Bld) 0.6 % Normal 0.2-2.0 [facility] Comment on above: Performed By: #### C BC #### [facility] [address] [place] [address] Dr. David Lares EO # 1.3 103/ul Critically high 0.0-0.7 [facility] Comment on above: Performed By: #### C BC #### [facility] [address] [place] [address] Dr. David Lares Eosinophils/100 WBC (Bld) 15.2 % Critically high 0.9-7.0 [facility] Comment on above: Performed By: #### C BC #### [facility] [address] [place] [address] Dr. David Lares Erythrocyte distribution width (RBC) [Ratio] 11.9 % Normal 11.0-15.0 [facility] Comment on above: Performed By: #### C BC #### [facility] [address] [place] [address] Dr. David Lares Hematocrit (Bld) [Volume fraction] 40.2 % Critically low 42.0-54.0 [facility] Comment on above: Performed By: #### C BC #### [facility] [address] [place] [address] Dr. David Lares Hemoglobin (Bld) [Mass/Vol] 14.1 g/dL Normal 14.0-18.0 [facility] Comment on above: Performed By: #### C BC #### [facility] [address] [place] [address] Dr. David Lares IG # 0.01 10e3/ul Normal 0.00-0.03 [facility] Comment on above: Performed By: #### C BC #### [facility] [address] [place] [address] Dr. David Lares IG % 0.1 % Normal 0.0-0.5 [facility] Comment on above: Performed By: #### C BC #### [facility] [address] [place] [address] Dr. David Lares LYMPH # 3.6 103/ul Normal 1.2-3.8 [facility] Comment on above: Performed By: #### C BC #### [facility] [address] [place] [address] Dr. David Lares Lymphocytes/100 WBC (Bld) 40.9 % Normal 20.5-60.0 [facility] Comment on above: Performed By: #### C BC #### [facility] [address] [place] [address] Dr. David Lares MANUAL DIFF REQ NO Normal [facility] Comment on above: Performed By: #### C BC #### [facility] [address] [place] [address] Dr. David Lares MCH (RBC) [Entitic mass] 31.8 pg Normal 25.9-34.0 [facility] Comment on above: Performed By: #### C BC #### [facility] [address] [place] [address] Dr. David Lares MCHC (RBC) [Mass/Vol] 35.1 g/dL Normal 29.9-35.2 [facility] Comment on above: Performed By: #### C BC #### [facility] [address] [address] [address] David Lares MCV (RBC) [Entitic vol] 90.5 fL Normal 80.0-94.0 [facility] Comment on above: Performed By: #### C BC #### [facility] [address] [place] [address] Dr. David Lares MONO # 0.7 103/ul Normal 0.3-0.8 [facility] Comment on above: Performed By: #### C BC #### [facility] [address] [place] [address] Dr. David Lares Monocytes/100 WBC (Bld) 8.3 % Normal 1.7-12.0 [facility] Comment on above: Performed By: #### C BC #### [facility] [address] [place] [address] Dr. David Lares NEUT # 3.0 103/ul Normal 1.4-6.5 [facility] Comment on above: Performed By: #### C BC #### [facility] [address] [place] [address] Dr. David Lares Neutrophils/100 WBC (Bld) 34.9 % Critically low 43.0-75.0 [facility] Comment on above: Performed By: #### C BC #### [facility] [address] [place] [address] Dr. David Lares Platelet mean volume (Bld) [Entitic vol] 8.6 fL Critically low 9.5-13.5 [facility] Comment on above: Performed By: #### C BC #### [facility] [address] [place] [address] Dr. David Lares PLT 244 103/ul Normal 150-450 [facility] Comment on above: Performed By: #### C BC #### [facility] [address] [place] [address] Dr. David Lares RBC 4.44 106/ul Critically low 4.70-6.10 [facility] Comment on above: Performed By: #### C BC #### [facility] [address] [address] [address] David Lares WBC 8.7 103/ul Normal 4.0-11.0 [facility] Comment on above: Performed By: #### C BC #### [facility] [address] [address] [address] David Lares LIPID PROFILEon 02-10-2022 CHOL-HDL RATIO NORM SEE BELOW Normal [facility] Comment on above: Result Comment: 3.3 - 4.4 LOW RISK 4.4 - 7.1 AVERAGE RISK 7.1 - 11.0 MODERATE RISK >11.0 HIGH RISK Performed By: #### C MP, LIPID #### [facility] [address] [place] [address] Dr. David Lares Cholesterol [Mass/Vol] 151 mg/dL Normal <=200 [facility] Comment on above: Performed By: #### C MP, LIPID #### [facility] [address] [place] [address] Dr. David Lares Cholesterol in HDL [Mass/Vol] 44 mg/dL Normal 40-60 [facility] Comment on above: Performed By: #### C MP, LIPID #### [facility] [address] [place] [address] Dr. David Lares Cholesterol in LDL [Mass/Vol] 87.4 mg/dL Normal [facility] Comment on above: Performed By: #### C MP, LIPID #### [facility] [address] [place] [address] Dr. David Lares Cholesterol.total/C holesterol in HDL [Mass ratio] 3.4 {ratio} Normal [facility] Comment on above: Performed By: #### C MP, LIPID #### [facility] [address] [address] [address] David Lares HDL NORMAL > or = 60 mg/dl - LO W CARDIOVASCULAR RISK <40 mg/dl - HIGH CARDIOVASCULAR RISK Normal [facility] Comment on above: Performed By: #### C MP, LIPID #### [facility] [address] [place] [address] Dr. David Lares LDL CALC NORMAL SEE BELOW Normal [facility] Comment on above: Result Comment: <100 mg/dl OPTIMAL 100 - 129 mg/dl NEAR OR ABOVE OPTIMAL 130 - 159 mg/dl BORDERLINE HIGH 160 - 189 mg/dl HIGH >190 mg/dl VERY HIGH Performed By: #### C MP, LIPID #### [facility] [address] [place] [address] Dr. David Lares Triglyceride [Mass/Vol] 98 mg/dL Normal <=150 [facility] Comment on above: Performed By: #### C MP, LIPID #### [facility] [address] [place] [address] Dr. David Lares VLDL CALC 19.6 mg/dL Normal [facility] Comment on above: Performed By: #### C MP, LIPID #### [facility] [address] [place] [address] Dr. David Lares PROF 14(COMP METB)on 022 Albumin [Mass/Vol] 4.2 g/dL Normal 3.4-5.0 [facility] Comment on above: Performed By: #### C MP, LIPID #### [facility] [address] [place] [address] Dr. David Lares Albumin/Globulin [Mass ratio] 1.0 {ratio} Normal [facility] Comment on above: Performed By: #### C MP, LIPID #### [facility] [address] [place] [address] Dr. David Lares ALP [Catalytic activity/Vol] 64 U/L Normal 46-116 [facility] Comment on above: Performed By: #### C MP, LIPID #### [facility] [address] [place] [address] Dr. David Lares ALT [Catalytic activity/Vol] 25 U/L Normal 16-63 [facility] Comment on above: Performed By: #### C MP, LIPID #### [facility] [address] [place] [address] Dr. David Lares Anion gap [Moles/Vol] 10.9 mmol/L Normal [facility] Comment on above: Performed By: #### C MP, LIPID #### [facility] [address] [place] [address] Dr. David Lares AST [Catalytic activity/Vol] 19 U/L Normal 15-37 [facility] Comment on above: Performed By: #### C MP, LIPID #### [facility] [address] [place] [address] Dr. David Lares Bilirubin [Mass/Vol] 0.6 mg/dL Normal 0.2-1.0 [facility] Comment on above: Performed By: #### C MP, LIPID #### [facility] [address] [place] [address] Dr. David Lares Calcium [Mass/Vol] 8.9 mg/dL Normal 8.5-10.1 [facility] Comment on above: Performed By: #### C MP, LIPID #### [facility] [address] [place] [address] Dr. David Lares Chloride [Moles/Vol] 100 mmol/L Normal 98-107 [facility] Comment on above: Performed By: #### C MP, LIPID #### [facility] [address] [place] [address] Dr. David Lares CO2 [Moles/Vol] 29.2 mmol/L Normal 21.0-32.0 [facility] Comment on above: Performed By: #### C MP, LIPID #### [facility] [address] [place] [address] Dr. David Lares Creatinine [Mass/Vol] 0.91 mg/dL Normal 0.70-1.30 [facility] Comment on above: Performed By: #### C MP, LIPID #### [facility] [address] [place] [address] Dr. David Lares EGFR-AF ECUADOREAN >60 Normal >=60 [facility] Comment on above: Performed By: #### C MP, LIPID #### [facility] [address] [place] [address] Dr. David Lares EGFR-NON AF ECUADOREAN >60 Normal >=60 [facility] Comment on above: Performed By: #### C MP, LIPID #### [facility] [address] [place] [address] Dr. David Lares Globulin (S) [Mass/Vol] 4.1 g/dL Normal [facility] Comment on above: Performed By: #### C MP, LIPID #### [facility] [address] [place] [address] Dr. David Lares Glucose [Mass/Vol] 101 mg/dL Normal 74-106 [facility] Comment on above: Performed By: #### C MP, LIPID #### [facility] [address] [place] [address] Dr. David Lares Potassium [Moles/Vol] 4.1 mmol/L Normal 3.5-5.1 [facility] Comment on above: Performed By: #### C MP, LIPID #### [facility] [address] [place] [address] Dr. David Lares Protein [Mass/Vol] 8.3 g/dL Critically high 6.4-8.2 [facility] Comment on above: Performed By: #### C MP, LIPID #### [facility] [address] [place] [address] Dr. David Lares Sodium [Moles/Vol] 136 mmol/L Normal 136-145 [facility] Comment on above: Performed By: #### C MP, LIPID #### [facility] [address] [place] [address] Dr. David Lares Urea nitrogen [Mass/Vol] 17.0 mg/dL Normal 7.0-18.0 [facility] Comment on above: Performed By: #### C MP, LIPID #### [facility] [address] [place] [address] Dr. David Lares Urea nitrogen/Creatinine [Mass ratio] 18.7 mg/mg Normal [facility] Comment on above: Performed By: #### C MP, LIPID #### [facility] [address] [place] [address] Dr. David Lares GLYCOHEMOGLOBIN A1Con 2021 ADA RECOMMENDATION SEE BELOW Normal [facility] Comment on above: Result Comment: ADA RECOMMENDED LIMIT 4.0 - 6.0 ADA THERAPEUTIC TARGET < 7.0 ACTION SUGGESTED > 7.0 Performed By: #### A 1C #### [facility] [address] [place] [address] Dr. David Lares Glucose [Mass/Vol] 123 mg/dL Normal [facility] Comment on above: Performed By: #### A 1C #### [facility] [address] [place] [address] Dr. David Lares HbA1c (Bld) [Mass fraction] 5.9 % Normal 4.5-6.2 [facility] Comment on above: Performed By: #### A 1C #### [facility] [address] [place] [address] Dr. David Lares MICROALBUMIN, [place] URon 11-2 mALB 2.5 mg/L Normal <=30.0 [facility] Comment on above: Performed By: #### M ALBR #### [facility] [address] [place] [address] Dr. David Lares GLYCOHEMOGLOBIN A1Con 2021 ADA RECOMMENDATION SEE BELOW Normal [facility] Comment on above: Result Comment: ADA RECOMMENDED LIMIT 4.0 - 6.0 ADA THERAPEUTIC TARGET < 7.0 ACTION SUGGESTED > 7.0 Performed By: #### A 1C #### [facility] [address] [place] [address] Dr. David Lares Glucose [Mass/Vol] 126 mg/dL Normal [facility] Comment on above: Performed By: #### A 1C #### [facility] [address] [place] [address] Dr. David Lares HbA1c (Bld) [Mass fraction] 6.0 % Normal 4.5-6.2 [facility] Comment on above: Performed By: #### A 1C #### [facility] [address] [place] [address] Dr. David Lares PROF CHEM 8 (BAS METB)on Anion gap [Moles/Vol] 10.6 mmol/L Normal [facility] Comment on above: Performed By: #### B MP #### [facility] [address] [address] [address] David Lares Calcium [Mass/Vol] 8.8 mg/dL Normal 8.5-10.1 [facility] Comment on above: Performed By: #### B MP #### [facility] [address] [address] [address] David Lares Chloride [Moles/Vol] 103 mmol/L Normal 98-107 [facility] Comment on above: Performed By: #### B MP #### [facility] [address] [address] [address] David Lares CO2 [Moles/Vol] 27.5 mmol/L Normal 21.0-32.0 [facility] Comment on above: Performed By: #### B MP #### [facility] [address] [place] [address] Dr. David Lares Creatinine [Mass/Vol] 0.98 mg/dL Normal 0.70-1.30 [facility] Comment on above: Performed By: #### B MP #### [facility] [address] [place] [address] Dr. David Lares EGFR-AF ECUADOREAN >60 Normal >=60 [facility] Comment on above: Performed By: #### B MP #### [facility] [address] [place] [address] Dr. David Lares EGFR-NON AF ECUADOREAN >60 Normal >=60 [facility] Comment on above: Performed By: #### B MP #### [facility] [address] [place] [address] Dr. David Lares Glucose [Mass/Vol] 102 mg/dL Normal 74-106 [facility] Comment on above: Performed By: #### B MP #### [facility] [address] [place] [address] Dr. David Lares Potassium [Moles/Vol] 4.1 mmol/L Normal 3.5-5.1 [facility] Comment on above: Performed By: #### B MP #### [facility] [address] [place] [address] Dr. David Lares Sodium [Moles/Vol] 137 mmol/L Normal 136-145 [facility] Comment on above: Performed By: #### B MP #### [facility] [address] [place] [address] Dr. David Lares Urea nitrogen [Mass/Vol] 14.0 mg/dL Normal 7.0-18.0 [facility] Comment on above: Performed By: #### B MP #### [facility] [address] [place] [address] Dr. David Lares Urea nitrogen/Creatinine [Mass ratio] 14.3 mg/mg Normal [facility] Comment on above: Performed By: #### B MP #### [facility] [address] [place] [address] Dr. David Lares CBC AUTO DIFFon 05-28-2021 BASO # 0.1 103/ul Normal 0.0-0.1 [facility] Comment on above: Performed By: #### C BC #### [facility] [address] [place] [address] Dr. David Lares Basophils/100 WBC (Bld) 0.7 % Normal 0.2-2.0 [facility] Comment on above: Performed By: #### C BC #### [facility] [address] [place] [address] Dr. David Lares EO # 0.5 103/ul Normal 0.0-0.7 [facility] Comment on above: Performed By: #### C BC #### [facility] [address] [place] [address] Dr. David Lares Eosinophils/100 WBC (Bld) 5.6 % Normal 0.9-7.0 [facility] Comment on above: Performed By: #### C BC #### [facility] [address] [place] [address] Dr. David Lares Erythrocyte distribution width (RBC) [Ratio] 11.8 % Normal 11.0-15.0 [facility] Comment on above: Performed By: #### C BC #### [facility] [address] [place] [address] Dr. David Lares Hematocrit (Bld) [Volume fraction] 40.7 % Critically low 42.0-54.0 [facility] Comment on above: Performed By: #### C BC #### [facility] [address] [place] [address] Dr. David Lares Hemoglobin (Bld) [Mass/Vol] 14.0 g/dL Normal 14.0-18.0 [facility] Comment on above: Performed By: #### C BC #### [facility] [address] [place] [address] Dr. David Lares IG # 0.01 10e3/ul Normal 0.00-0.03 [facility] Comment on above: Performed By: #### C BC #### [facility] [address] [place] [address] Dr. David Lares IG % 0.1 % Normal 0.0-0.5 [facility] Comment on above: Performed By: #### C BC #### [facility] [address] [place] [address] Dr. David Lares LYMPH # 3.1 103/ul Normal 1.2-3.8 [facility] Comment on above: Performed By: #### C BC #### [facility] [address] [place] [address] Dr. David Lares Lymphocytes/100 WBC (Bld) 37.3 % Normal 20.5-60.0 [facility] Comment on above: Performed By: #### C BC #### [facility] [address] [place] [address] Dr. David Lares MANUAL DIFF REQ NO Normal [facility] Comment on above: Performed By: #### C BC #### [facility] [address] [place] [address] Dr. David Lares MCH (RBC) [Entitic mass] 32.3 pg Normal 25.9-34.0 [facility] Comment on above: Performed By: #### C BC #### [facility] [address] [place], [place] [id number] Dr. David Lares MCHC (RBC) [Mass/Vol] 34.4 g/dL Normal 29.9-35.2 [facility] Comment on above: Performed By: #### C BC #### [facility] [address] [place] [address] Dr. David Lares MCV (RBC) [Entitic vol] 93.8 fL Normal 80.0-94.0 [facility] Comment on above: Performed By: #### C BC #### [facility] [address] [place] [address] Dr. David Lares MONO # 0.8 103/ul Normal 0.3-0.8 [facility] Comment on above: Performed By: #### C BC #### [facility] [address] [place] [address] Dr. David Lares Monocytes/100 WBC (Bld) 8.9 % Normal 1.7-12.0 [facility] Comment on above: Performed By: #### C BC #### [facility] [address] [place] [address] Dr. David Lares NEUT # 4.0 103/ul Normal 1.4-6.5 [facility] Comment on above: Performed By: #### C BC #### [facility] [address] [place] [address] Dr. David Lares Neutrophils/100 WBC (Bld) 47.4 % Normal 43.0-75.0 [facility] Comment on above: Performed By: #### C BC #### [facility] [address] [place] [address] Dr. David Lares Platelet mean volume (Bld) [Entitic vol] 8.5 fL Critically low 9.5-13.5 [facility] Comment on above: Performed By: #### C BC #### [facility] [address] [place] [address] Dr. David Lares PLT 208 103/ul Normal 150-450 [facility] Comment on above: Performed By: #### C BC #### [facility] [address] [place] [address] Dr. David Lares RBC 4.34 106/ul Critically low 4.70-6.10 [facility] Comment on above: Performed By: #### C BC #### [facility] [address] [place], [place] [address] Dr. David Lares WBC 8.4 103/ul Normal 4.0-11.0 [facility] Comment on above: Performed By: #### C BC #### [facility] [id number] 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, right shoulder FINAL DX: PRINCIPAL: M75.01 Adhesive capsulitis of right shoulder SECONDARY: PYMT PROC APC STAT DESCRIPTION DOCTOR NAME DATE 62229 5113 J1 Arthroscopy, shoulder, Álvaro Hayes And [...] Lebron Revised Date Saved: 11/08/2018 04:31 pm [facility] Coding Summary CODING DATE: 11/08/2018 [facility] STATUS: Home PAYOR: [employer] APC DESCRIPTION 5113 Level 3 Musculoskeletal Procedures ADMIT DX: REASON FOR VISIT DX: 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 However, the narrative phrase printed from the coding software may appear abbreviated, or result in slightly different terminology. 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 However, the narrative phrase printed from the coding software may appear abbreviated, or result in slightly different terminology. Coded By: Jackelyn Lebron Date Saved: 11/08/2018 04:30 pm [facility] History and Physicalon 11-08 History and Physical [id number] .[id number] [facility] MAGR Intraoperative Recordon 11-08-2018 MAGR Intraoperative Record MAGR Intra-Op Record Summary Primary Physician: Álvaro Hayes DO Finalized Date/Time: 11/08/18 12:12:53 Pt. Name: DAI GREENWOOD/Sex: 1965 MALE Med Rec #: [id number] Physician: Álvaro Hayes DO Financial #: [id number] Pt. Type: D Room/Bed: / Admit/Disch: 11/05/18 [...] Role Performed Surgeon - Primary Anesthesiologist of Bargain Table Clerk Record Time In 11/05/18 09:55:00 11/05/18 09:55:00 11/05/18 09:55:00 Time Out 11/05/18 11:10:00 11/05/18 11:10:00 11/05/18 11:10:00 Procedure Arthroscopy Arthroscopy Arthroscopy Shoulder(Right) Shoulder(Right) Shoulder(Right) Last Modified By: Gail MCGRATH, Alyce Reynolds RN, Alyce Carranza RN 11/05/18 11:24:52 11/05/18 11:24:52 11/05/18 11:24:52 Entry 4 Entry 5 Case Attendee Jackelyn Lyons RN, CST, Ashley Role Performed Ring Rolling Machine Operator Scrub Personnel Time In 11/05/18 09:55:00 11/05/18 09:55:00 Time Out 11/05/18 11:10:00 11/05/18 11:10:00 Procedure Arthroscopy Arthroscopy Shoulder(Right) Shoulder(Right) Last Modified By: Gail MCGRATH, Alyce Carranza RN 11/05/18 11:24:52 11/05/18 11:24:52 General Comments: RICHARD BLAKE REP Surgical Procedures MAGR Pre-Care Text: A.20 Verifies operative procedure, surgical site, and laterality Im.150 Develops individualized plan of care Entry 1 Procedure Arthroscopy Shoulder Primary Procedure Yes Primary Surgeon Álvaro Hayes DO Surgeon Comment RIGHT SHOULDER SCOPE Start [...] Syntegrity Prep Agents (Im.270) Povidone-Iodine Prep By Alyec Reynolds RN Prep Area (Im.270) Shoulder, Arm, Hand Prep Area Details Right Skin Prep Agent Dry Yes Without Pooling Hair Removal Syntegrity Hair Removal Methods Clipper Hair Removal By Álvaro Hayes DO Hair Removal Site Chest Hair Removal Site Right Details Outcome Met (O.100) Yes Last Modified By: Alyce Renyolds RN 11/05/18 11:27:15 Post-Care Text: E.10 Evaluates [...] Unfinalizing Freetext Reason for Unfinalizing 11/05/18 14:23 [facility]ation [facility] Record [facility] PACU Record Summary Primary Physician: Álvaro Hayes DO Finalized Date/Time: 11/08/18 12:14:23 Pt. Name: VALORIE DAILILY Rodas/Sex: 1965 MALE Med Rec #: [id number] Physician: Álvaro Hayes DO Financial #: [id number] Pt. Type: D Room/Bed: / Admit/Disch: 11/05/18 07:54:04 - 11/05/18 13:28:00 Institution: PACU Case Times MAGR Entry 1 In PACU I 11/05/18 11:15:00 Discharge from PACU 11/05/18 11:58:00 I Last Modified By: Charlene Tovar RN 11/08/18 12:14:18 Finalized By: Charlene Tovar RN Document Signatures Signed By: Charlene Tovar RN 11/08/18 12:14 [facility] Provider Orderson 11-08-2018 Provider Orders [id number] [place] [address] Consent Formson 11-06-2018 Consent Forms [id number] [place] [address] Discharge Instructionson Discharge Instructions [id number] [place] [address] Medication Managementon 10-12 Medication Management [id number] [place] [address] Anesthesia Noteon 11-05-2018 Anesthesia Note Patient: DAI [...] history): All Problems Hypertension / SNOMED CT [id number] / Confirmed Histories Family History: No family history items have been selected or recorded. Procedure history: Pilonidal cyst (14454929). Colonoscopy (844710244). Esophagogastroduodeno scopy (105776860). Social History Alcohol Assessment Use: Current. Beer, [...] rhythm. Review / Management Laboratory Results Plan [place] [employer]#( A) physical status classification: [...] on: 11/05/2018 09:38 EDT] Ruslan Bernal MD [facility] Inpatient Patient Summaryon 11-05-2018 Inpatient Patient Summary [address] [address] Patient Discharge Instructions Name: DAI GREENWOOD : 1965 Patient Address: [address] [place] [address] Primary Care Provider: Name: James Khan After you are discharged if you find you have any questions, please, call [phone] to speak to a nurse. Discharge Diagnosis: Nontraumatic tear of right supraspinatus tendon Prescription Information: If you have been given a prescription for narcotics, seek immediate medical attention if you have any difficulty breathing or any sudden status changes such as confusion and sleepiness. If you or anyone you know is experiencing suicidal thoughts, mental health, alcohol and/or drug addiction problems; contact the [facility] 03/10 Crisis Hotline -Text 4HZOH nk 744071. If you received any narcotics, sedation, or [...] business decisions or sign any legal documents [facility] would like to thank you for allowing us to assist you with your healthcare needs. The following includes patient education materials and information regarding your injury/illness. DAI GREENWOOD has been given the following list of follow-up instructions, prescriptions, and patient education materials: Follow-up Instructions With: Address: When: Álvaro Hayes [address] [place] [address], [address] [place] [address] Business (2) 11/15/2018 9:00 AM With: Address: When: James Khan [address] [place] [id number] Business (1) Medications During the course [...] or concerns, please call the office at [phone] -Follow up as scheduled Viruses or Bacteria [...] for Disease Control and Prevention November 2013 [facility] MAGR Intraoperative Recordon 11-05-2018 [facility] Intraoperative Record MAGR Intra-Op Record Summary Primary Physician: Finalized Date/Time: 11/05/18 10:04:36 Pt. Name: VALORIEDIA SCHWARTZ.O.B./Sex: 1965 MALE Med Rec #: [id number] Physician: Álvaro Hayes DO Financial #: [id number] Pt. Type: D Room/Bed: / Admit/Disch: 11/05/18 [...] Klaehn, Margaret RN Role Performed Anesthesiologist of Bargain Table Clerk Bargain Table Clerk Record Time In 11/05/18 09:30:00 11/05/18 09:30:00 [...] Met (O.100) Yes Last Modified By: Brandy Paige RN 11/05/18 10:00:09 Post-Care Text: E.10 Evaluates for signs and symptoms of physical injury to skin and tissue O.100 Patient is free from signs and symptoms of chemical injury Departure from OR MAGR Entry 1 Present on Depart N/A Via Stretcher Post-op Destination Becker Skin DFO Condition Intact Description Condition Intact Description Report Given To Alyce Reynolds RN Airway Maintenance Patient Status Stable Last Modified By: Brandy Paige RN 11/05/18 09:59:48 Case Comments Finalized By: Brandy Paige RN Document Signatures Signed By: Brandy Paige RN 11/05/18 10:04 [facility] MAGR Postoperative Recordon 11-05-2018 MAGR Postoperative Record MAGR Phase II Record Summary Primary Physician: Álvaro Hayes DO Finalized Date/Time: 11/05/18 13:38:50 Pt. Name: DAI GREENWOOD Robinson Meyer./Sex: 1965 MALE Med Rec #: [id number] Physician: Álvaro Hayes DO Financial #: [id number] Pt. Type: D Room/Bed: / Admit/Disch: 11/05/18 [...] Signed By: Brandy Paige RN 11/05/18 13:38 [facility]-05-2018 [facility] Preoperative Record MAGR Pre-Op Record Summary Primary Physician: Álvaro Hayes DO Finalized Date/Time: 11/05/18 10:06:08 Pt. Name: ASMITA GREENWOODLILY Rodas/Sex: 1965 MALE Med Rec #: [id number] Physician: Álvaro Hayes DO Financial #: [id number] Pt. Type: D Room/Bed: / Admit/Disch: 11/05/18 [...] Signed By: Brandy Paige RN 11/05/18 10:06 Normal [facility] Operative Report - Surgeon/P mychal 11-05-2018 Operative Report - Surgeon/Physician Preoperative diagnosis: internal derangement right shoulder He is a capsulitis Postoperative diagnosis: adhesive capsulitis right shoulder Procedure: diagnostic arthroscopy right shoulder Manipulation under anesthesia right shoulder Surgeon: Rob Hayes D.O. Anesthesia: Gen. with preoperative interscalene block [...] on: 11/05/2018 10:56 EDT] Álvaro Hayes DO Normal [facility] Patient Handouton 11-05-[address] [...] or concerns, please call the office at [phone] -Follow up as scheduled [facility] Progress Note - Nurseon 10-11 Progress Note - Nurse PAT review done per Dr. Andersno, no orders received. [Electronically Signed on: 10/25/2018 14:22 EDT] Aubrie Quiroz RN [Verified on: 10/25/2018 14:22 EDT] Aubrie Quiroz RN [facility] Coding Summaryon 10-24-2018 Coding Summary CODING DATE: 10/24/2018 [facility] STATUS: Home PAYOR: Commercial Insurance APC [...] Rosina Cullen Date Saved: 10/24/2018 11:30 am [facility] .Auto Diff 1on 10-23-2018 Auto [place] % 10 % Normal -12 [facility] Comment on above: Performed By: #### 1 [id number], [id number], [id number] #### [facility] (DEFAULT) [address] [place] [address] Baso Abs# 0.0 x10 Normal 0.0-0.2 [facility] Comment on above: Performed By: #### 1 [id number], [id number], [id number] #### [facility] (DEFAULT) [address] [place] [address] 41838 Basophils/100 WBC (Bld) 0.5 % Normal 0.2-2.0 [facility] Comment on above: Performed By: #### 1 [id number], [id number], [id number] #### [facility] (DEFAULT) [address] [place] [address] 03661 Eos Abs# 0.5 x10 High 0.0-0.4 [facility] Comment on above: Performed By: #### 1 [id number], [id number], [id number] #### [facility] (DEFAULT) [address] [place] [address] 45349 Eosinophils/100 WBC (Bld) 5.6 % High 0.9-4.0 [facility] Comment on above: Performed By: #### 1 [id number], [id number], [id number] #### [facility] (DEFAULT) [address] [place] [address] Lymphocytes (Bld) [#/Vol] 3.0 x10 High 1.3-2.9 [facility] Comment on above: Performed By: #### 1 [id number], [id number], [id number] #### [facility] (DEFAULT) [address] [place] [address] 53760 Lymphocytes/100 WBC (Bld) 35 % Normal 14-48 [facility] Comment on above: Performed By: #### 1 [id number], [id number], [id number] #### [facility] (DEFAULT) [address] [place] [address] [place] Abs# 0.8 x10 Normal 0.0-0.8 [facility] Comment on above: Performed By: #### 1 [id number], [id number], [id number] #### [facility] (DEFAULT) [address] [place] [address] 43447 Neut Abs# 4.1 x10 Normal 1.5-9.2 [facility] Comment on above: Performed By: #### 1 [id number], [id number], [id number] #### [facility] (DEFAULT) [address] [place] [address] 87314 Neutrophils/100 WBC (Bld) 49 % Normal 44-88 [facility] Comment on above: Performed By: #### 1 [id number], [id number], [id number] #### [facility] (DEFAULT) [address] [place] [address] BMP Standardon 10-23-2018 eGFR Non AA >60 [facility] Comment on above: Performed By: #### 1 [id number], [id number], [id number] #### [facility] (DEFAULT) [address] [place] [address] 83553 eGFR AA >60 [facility] Comment on above: Result Comment: Diagnostic Technician sacha Kidney disease could be indicated at eGFRs of less than 60 ml/min/1.73m2. Kidney Failure is indicated at less than 15 ml/min/1.73m2 Performed By: #### 1 [id number], [id number], [id number] #### [facility] (DEFAULT) [address] [place] [address] 67444 Anion gap [Moles/Vol] 16.0 mmol/L Normal 5.0-19.0 [facility] Comment on above: Performed By: #### 1 [id number], [id number], [id number] #### [facility] (DEFAULT) [address] [place] [address] 26965 Calcium [Mass/Vol] 9.4 mg/dL Normal 8.9-10.3 [facility] Comment on above: Performed By: #### 1 [id number], [id number], [id number] #### [facility] (DEFAULT) [address] [place] [address] 82470 Chloride [Moles/Vol] 102 mmol/L Normal 101-111 [facility] Comment on above: Performed By: #### 1 [id number], [id number], [id number] #### [facility] (DEFAULT) [address] [place] [address] 29822 CO2 [Moles/Vol] 25 mmol/L Normal 21-32 [facility] Comment on above: Performed By: #### 1 [id number], [id number], [id number] #### [facility] (DEFAULT) [address] [place] [address] 58374 Creatinine [Mass/Vol] 1.02 mg/dL Normal 0.90-1.30 [facility] Comment on above: Performed By: #### 1 [id number], [id number], [id number] #### [facility] (DEFAULT) [address] [place] [address] 02170 Glucose [Mass/Vol] 127.0 mg/dL High 74.0-118.0 [facility] Comment on above: Performed By: #### 1 [id number], [id number], [id number] #### [facility] (DEFAULT) [address] [place] [address] 16898 Osmolality [Osmolality] 279 mOsm/L [facility] Comment on above: Performed By: #### 1 [id number], [id number], [id number] #### [facility] (DEFAULT) [address] [place] [address] 58330 Potassium [Moles/Vol] 4.1 mmol/L Normal 3.6-5.1 [facility] Comment on above: Performed By: #### 1 [id number], [id number], [id number] #### [facility] (DEFAULT) [address] [place] [address] 88816 Sodium [Moles/Vol] 139.0 mmol/L Normal 136.0-144.0 [facility] Comment on above: Performed By: #### 1 [id number], [id number], [id number] #### [facility] (DEFAULT) [address] [place] [address] 25958 Urea nitrogen [Mass/Vol] 13 mg/dL Normal 8-26 [facility] Comment on above: Performed By: #### 1 [id number], [id number], [id number] #### [facility] (DEFAULT) [address] [place] [address] 29519 Urea nitrogen/Creatinine [Mass ratio] 13.0 mg/mg Normal 4.6-16.2 [facility] Comment on above: Performed By: #### 1 [id number], [id number], [id number] #### [facility] (DEFAULT) [address] [place] [address] 13410 CBC w/ Auto Diffon 9 Erythrocyte distribution width (RBC) [Ratio] 12.3 % Normal 11.5-15.0 [facility] Comment on above: Performed By: #### 1 [id number], [id number], [id number] #### [facility] (DEFAULT) [address] [place] [address] 86525 Hematocrit (Bld) [Volume fraction] 42.4 % Normal 34.8-51.9 [facility] Comment on above: Performed By: #### 1 [id number], [id number], [id number] #### [facility] (DEFAULT) [address] [place] [address] 25368 Hemoglobin (Bld) [Mass/Vol] 14.7 g/dL Normal 11.8-17.7 [facility] Comment on above: Performed By: #### 1 [id number], [id number], [id number] #### [facility] (DEFAULT) [address] [place] [address] 04570 Man Diff? Auto Normal [facility] Comment on above: Performed By: #### 1 [id number], [id number], [id number] #### [facility] (DEFAULT) [address] [place] [address] 82170 MCH (RBC) [Entitic mass] 32 pg Normal 24-34 [facility] Comment on above: Performed By: #### 1 [id number], [id number], [id number] #### [facility] (DEFAULT) [address] [place] [address] 28940 MCHC (RBC) [Mass/Vol] 35 g/dL Normal 26-37 [facility] Comment on above: Performed By: #### 1 [id number], [id number], [id number] #### [facility] (DEFAULT) [address] [place] [address] 36738 MCV (RBC) [Entitic vol] 91 fL Normal 81-100 [facility] Comment on above: Performed By: #### 1 [id number], [id number], [id number] #### [facility] (DEFAULT) [address] [place] [address] 24374 Platelet mean volume (Bld) [Entitic vol] 8.9 fL Normal 6.3-10.2 [facility] Comment on above: Performed By: #### 1 [id number], [id number], [id number] #### [facility] (DEFAULT) [address] [place] [address] 48031 Platelets (Bld) [#/Vol] 255 x10 Normal 138-427 [facility] Comment on above: Performed By: #### 1 [id number], [id number], [id number] #### [facility] (DEFAULT) [address] [place] [address] 79373 RBC (Bld) [#/Vol] 4.67 x10 Normal 3.70-5.30 [facility] Comment on above: Performed By: #### 1 [id number], [id number], [id number] #### [facility] (DEFAULT) [address] [place] [address] 04614 WBC (Bld) [#/Vol] 8.5 x10 Normal 3.5-10.5 [facility] Comment on above: Performed By: #### 1 [id number], [id number], [id number] #### [facility] (DEFAULT) [address] [place] [address] 66025 Vital Signs Date Time Vital Sign Value Performing Clinician Facility 05-21-2024 15:31-0400 Body height 172.72 cm [facility] 05-21-2024 15:31-0400 Body mass index (BMI) [Ratio] 30.3 kg/m2 [facility] 05-21-2024 15:31-0400 Body weight 90.49 kg [facility] 05-21-2024 15:31-0400 Diastolic blood pressure 70 mm[Hg] [facility] 05-21-2024 15:31-0400 Heart rate 74 /min [facility] 05-21-2024 15:31-0400 Respiratory rate 12 /min [facility] 05-21-2024 15:31-0400 SaO2% (BldA) [Mass fraction] 98 % [facility] 05-21-2024 15:31-0400 Systolic blood pressure 130 mm[Hg] [facility] 08-29-2023 15:33-0400 Body height 172.72 cm [facility] 08-29-2023 15:33-0400 Body mass index (BMI) [Ratio] 31.6 kg/m2 [facility] 08-29-2023 15:33-0400 Body weight 94.57 kg [facility] 08-29-2023 15:33-0400 Diastolic blood pressure 87 mm[Hg] [facility] 08-29-2023 15:33-0400 Heart rate 70 /min [facility] 08-29-2023 15:33-0400 Respiratory rate 12 /min [facility] 08-29-2023 15:33-0400 Systolic blood pressure 163 mm[Hg] [facility] 02-27-2023 15:30-0500 Body height 172.72 cm James Ball Other [facility] Other 02-27-2023 15:30-0500 Body mass index (BMI) [Ratio] 30.56 kg/m2 James Ball Other [facility] Other 02-27-2023 15:30-0500 Body weight 91.17 kg James Ball Other [facility] Other 02-27-2023 15:30-0500 Diastolic blood pressure 87 mm[Hg] James Ball Other [facility] Other 02-27-2023 15:30-0500 Systolic blood pressure 163 mm[Hg] James Ball Other [facility] Other 09-26-2022 15:30-0400 Body height 172.72 cm James Ball Other [facility] Other 09-26-2022 15:30-0400 Body mass index (BMI) [Ratio] 31.35 kg/m2 James Ball Other [facility] Other 09-26-2022 15:30-0400 Body weight 93.53 kg James Ball Other [facility] Other 09-26-2022 15:30-0400 Diastolic blood pressure 80 mm[Hg] James Ball Other [facility] Other 09-26-2022 15:30-0400 Respiratory rate 12 /min James Khan Other [facility] Other 09-26-2022 15:30-0400 Systolic blood pressure 128 mm[Hg] James Khan Other [facility] Other Encounters Encounter Date Encounter Type Care Provider Facility Start: 05-21-2024 End: 05-21-2024 ambulatory [facility] Work Phone: Start: 05-21-2024 End: 05-21-2024 Patient encounter procedure [facility] Physician [facility] Work Phone: Start: 02-22-2024 Non-patient / Non-visit [facility] Physician [facility] Work Phone: Start: 02-19-2024 Patient encounter status [facility] Start: 08-29-2023 End: 08-29-2023 ambulatory [facility] Work Phone: Start: 08-29-2023 End: 08-29-2023 Patient encounter procedure [facility] Physician [facility] Work Phone: Start: 08-24-2023 Non-patient / Non-visit [facility] Physician [facility] Work Phone: Start: 06-21-2023 Non-patient / Non-visit [facility] Physician [facility] Work Phone: Start: 03-02-2023 End: 03-02-2023 ambulatory James Khan Other [facility] Other Start: 03-02-2023 Telephone encounter James Khan [facility] Start: 02-27-2023 End: 02-27-2023 ambulatory James Khan Other [facility] Other Start: 02-27-2023 Encounter for genera l adult medical examination without abnormal findings James Khan [facility] Start: 02-27-2023 Periodic preventive med est patient 40-64yrs James Khan [facility] Start: 02-27-2023 Telephone encounter [facility] Start: 02-22-2023 End: 02-22-2023 ambulatory James Khan Other [facility] Other Start: 02-22-2023 Encounter for genera l adult medical examination without abnormal findings James Khan [facility] Start: 02-22-2023 Telephone encounter [facility] Start: 09-26-2022 End: 09-26-2022 ambulatory James Bill Other [facility] Other Start: 09-26-2022 Office outpatient vi sit 25 minutes James Khan [facility] Start: 02-22-2022 Adult health examination James Khan Other [facility] Other Start: 02-17-2022 Encounter for genera l adult medical examination without abnormal findings DR JAMES KHAN [facility] Start: 02-10-2022 End: 02-11-[address] JAMES [...] Comment on above: Performed By: #### P [facility] #### [facility] Laboratory [address] [place] [address] Dr. David Lares Start: 01-24-2018 General examination of patient James Khan Other Depression screening Cici Khan Other Plan of Treatment Date Care Activity Detail Author Comprehensive metabo lic 2000 panel - Serum or Plasma [facility] enter [facility] Immunizations Immunization Date Immunization Notes Care Provider Fa sonia 02-21-2024 influenza, seasonal, injectable, preservative free [facility] 02-27-2023 influenza, injectabl e, quadrivalent, contains preservative James Khan Other [facility] Other 02-27-2023 influenza, injectabl e, quadrivalent, preservative free [facility] 03-19-2022 COVID-19 Vaccine Pfi zer - Documentation Purposes Only James Khan Other [facility] 02-16-2022 influenza virus vaccine, split virus (incl. purified surface antigen) James Bill Other [facility] Other 02-16-2022 influenza virus vaccine, unspecified formulation [facility] 03-10-2021 COVID-19 Vaccine Pfi zer - Documentation Purposes Only James Khan Other [facility] 01-15-2021 influenza virus vaccine, split virus (incl. purified surface antigen) James Khan Other [facility] Other 01-15-2021 influenza virus vaccine, unspecified formulation [facility] 06-20-2020 COVID-19 Vaccine Pfi zer - Documentation Purposes Only James Khan Other [facility] 05-30-2020 COVID-19 Vaccine Pfi zer - Documentation Purposes Only James Khan Other [facility] 01-14-2020 influenza virus vaccine, split virus (incl. purified surface antigen) James Khan Other [facility] Other 01-14-2020 influenza virus vaccine, unspecified formulation [facility] Payers Date Payer Category Payer Unknown [id number] 1965 Unknown [id number] 1965 Unknown [id number] 1965 Unknown [id number] 1960 Unknown [id number] Private Health Insurance [facility] [id number] Unknown [id number] Social History Date Type Detail Facility Sex Assigned At [facility] Other Sex Assigned At Sex Assigned At Bir th [facility] Other Start: 1965 Sex Assigned At Male [facility] Tobacco smoking status PRIS Unknown if ever smoked [facility] Work Phone: Start: 05-21-2024 Sex Male (finding) [facility] Evaluation note 02-27-2023 Note Date & Type [...] (ICD-10 - Z12.5) Yearly PSA and ZAIRA [facility] Other Evaluation note 02-22-2023 Note Date & Type Note Facility 02-22-2023 Evaluation note Encounter Date Diagnosis Assessment Notes Feb, Wellness examination (ICD-10 - Z00.00) [facility] Other Evaluation note Note Date & Type Note Facility Evaluation note [facility] Other Evaluation note Note Date & Type Note Facility Evaluation note No Information [facility] Other Evaluation note Note Date & Type Note Facility Evaluation note Diagnosis Onset Date History of nephrolithiasis a cute Hypertension acute Type 2 diabetes mellitus with hyperglycemia acute [facility] Work Phone: Evaluation note Note Date & Type Note Facility Evaluation note Diagnosis Onset Date Resolution History of nephrolithiasis acute May 21, 2024 3:21pm Hypertension acute May 21, 2024 3:21pm Obesity acute May 21 3:21pm Type 2 diabetes mellitus with hyperglycemia acute May 21, 025 3:21pm [facility] Work Phone: History general Narrative - Reported Note Date & Type Note Facility History general Narrative - Reported [facility] Other History general Narrative - Reported Note [...] Surgical History Pylonidal cyst 1979 Surgical History [facility] 1997 Surgical History Colonoscopy 2010 Surgical History Arthroscopy 10/2010 Hospitalization History see surgical history [facility] Other Summary Purpose Family History Relationship Condition Age at Onset Recorded Date/T rowena father Malignant neoplasm Unknown Diabetes mellitus Unknown Advance Directives Advance Directive Response Recorded Date/ Time Advance Directives No April 06, 2023 1:06pm Hospital Course Note [facility] SURGERY Clinical Discharge Summary PERSON INFORMATION Name DAI GREENWOOD Age 53 Years 1965 Sex MALE Language Citizen Of [place] PCP James Khan Marital Status Single Med Service Ambulatory Surgery Acct# Arrival 11/05/2018 07:54:04 Visit Reason SURGERY - RIGHT SHOULDER SCOPE Acuity LOS 019 02:29 Address: [address] [place] [address] Comment: PROVIDER INFORMATION VITALS INFORMATION Vital Sign [...] content not included)... Note Patient: DAI GREENWOOD Robinson Garcia RN: [id number] Age: 53 years Sex: MALE : 1965 [...] content not included)... Procedure Findings Note Patient: VALORIEDAI SCHWARTZ RN: [id number] Age: 53 years Sex: MALE : 1965 [...] can be disch (more content not included)... Chief Complaint and Reason for Visit Chief Complaint Amb Documentation 6 month follow up Reason for Visit History of nephrolit hiasis Hypertension Type 2 diabetes mellitus with hyperglycemia Chief Complaint Admit Date CC Adult Risk Stratification February 212023 1:36pm 3 month f/u May 21, 2024 3:2 1pm Reason for Visit Admit Date History of nephrolithiasis May 21, 2 025 3:21pm Hypertension May 21, 2024 3:2 1pm Obesity May 21, 2024 3:2 1pm Type 2 diabetes mellitus with hyperglyce nanette May 21, 2024 3:21pm Additional Source Comments (unrecognized sect ion and content) No Status Records FoundNo Status Records Found INFORMATION SOURCE (unrecogn ized section and content) DATE CREATED AUTHOR 11/11/2018 [facility] l DATE CREATED AUTHOR AUTHOR'S ORGANIZ ATION 02/18/2022 [facility] REASON FOR VISIT (unrecogniz ed section and content) [facility] LabsWELLNESSBP read ingsCall bck for BP readings Care Teams (unrecognized sec tion and content) Team Status: Active Member Role Status Dates James Khan , DO Primary Care Provider Active Team Status: Active Member Role Status Dates James Khan , Primary Care Provider Active Start: June 21, 2023 MATHEW Adkins Attending Provider Active Start : June 21, 2023 Team Status: Active Member Role Status Dates James Khan DO Primary Care Provide r, Attending Provider Active Start: August 24, 2023 Team Status: Inactive Member Role Status Dates James Khan , DO Primary Care Provide r, Attending Provider Active Start: August 29, 2023 End: August 29, 2023 Team Status: Active Member Role Status Dates James Khan DO Primary Care Provide r, Attending Provider Active Start: February 22, 2024 Team Status: Inactive Member Role Status Dates James Khan , DO Primary Care Provide r, Attending Provider Active Start: May 21, 2024 End: May 21, 2024 Goals (unrecognized section and content) Goals may be documented in a n alternate section FOR RECORDS PERTAINING TO PATIENTS WHO ARE [...] BE BASED ON THE PRIMARY CLINICAL RECORDS. [facility] [employer] [facility]. provides no warranty or guarantee of the accuracy or completeness of information in this document.
[2024-06-08 09:32] LABS: Estimated Average Glucose 126 mg/dL
== END 2024-06-08 08:40 | disposition home or self-care (01) ==
LOC: LAB 08:40
PROVIDERS: PCP Internal Medicine; Visit Provider Internal Medicine
DX: E11.65 Type 2 diabetes mellitus with hyperglycemia (principal)
CPT/HCPCS: 36415; 83036

== ENCOUNTER 2024-06-29 07:11 | Emergency (ER) | payer OTHER, SELFPAY ==
[2024-06-29] VITALS (18 sets, daily range): BP systolic 108–160; BP diastolic 67–87; PULSE 62–78; TEMP 36.6; O2SAT 95–100; BMI 30.4
--- OUTSIDE RECORDS SUMMARY | 2024-06-29 07:17 | XMS_ITS | CCD ---
Author Organization [facility] Care Team Providers Care Yarn Examiner Skeins Name Role Phone BILL, DR NUGENT Attending [...] or physicia Propensity to adverse reactions Comment:Done [facility] Other Medications Current Medications Medication Drug Class(es) [...] Basophils (Bld) [#/Vol] Automated basophil count 0.0-0.1 [facility] Basophils/100 WBC Auto (Bld) on 02-22-2024 Basophils/100 WBC (Bld) Automated basophil % 0.2-2.0 [facility] Cholesterol in LDL Calc [Mas s/Vol]on 02-22-2024 Cholesterol in LDL [Mass/Vol] Cholesterol in LDL [Mass/volume] in Serum or Plasma by calculation [facility] Comment on above: <100 mg/dl [id number] 0-129 mg/dl NEAR OR ABOVE [id number] mg/dl BORDERLINE [id number] mg/dl HIGH>190 mg/dl VERY HIGH Cholesterol in VLDL Calc [Ma ss/Vol]on 02-22-2024 Cholesterol in VLDL [Mass/Vol] Cholesterol in VLDL [Mass/volume] in Serum or Plasma by calculation [facility] Eosinophils/100 WBC Auto (Bl d)on 02-22-2024 Eosinophils/100 WBC (Bld) Automated eosinophil % 0.9-7.0 [facility] Erythrocyte distribution wid th Auto (RBC) [Ratio]on 02-22-2024 Erythrocyte distribution width (RBC) [Ratio] Erythrocyte distribution width [Ratio] by Automated count 11.0-15.0 [facility] Estimated glomerular filtrat ion rate (GFR) non- Americanon 02-22-2024 GFR/1.73 sq M.predicted among non-blacks MDRD (S/P/Bld) [Vol rate/Area] Estimated glomerular filtration rate (GFR) non- >=60 mL/min/1.73m 2 [facility] Globulin Calc (S) [Mass/Vol] on 02-22-2024 Globulin (S) [Mass/Vol] Serum globulin measurement by calculation (mass/volume) [facility] Glucose mean value [Mass/vol ume] in Blood Estimated from glycated hemoglobinon 02-22-2024 Average glucose Estimated from glycated hemoglobin (Bld) [Mass/Vol] Glucose mean value [Mass/volume] in Blood Estimated from glycated hemoglobin [facility] Hematocrit Auto (Bld) [Volum e fraction]on 02-22-2024 Hematocrit (Bld) [Volume fraction] Hematocrit [Volume Fraction] of Blood by Automated count 42.0-54.0 [facility] Hemoglobin [Mass/volume] in Bloodon 02-22-2024 Hemoglobin (Bld) [Mass/Vol] Hemoglobin [Mass/volume] in Blood 14.0-18.0 [facility] Laboratory - Chemistry and C hemistry - challengeon 02-22-2024 Albumin [Mass/Vol] 3.9 g/dL 3.4-5.0 [facility] ALP [Catalytic activity/Vol] 63 U/L 46-116 [facility] ALT [Catalytic activity/Vol] 59 U/L 16-63 [facility] AST [Catalytic activity/Vol] 31 U/L 15-37 [facility] Bilirubin [Mass/Vol] 0.6 mg/dL 0.2-1.0 [facility] Calcium [Mass/Vol] 8.9 mg/dL 8.5-10.1 [facility] Chloride [Moles/Vol] 103 mmol/L 98-107 [facility] Cholesterol [Mass/Vol] 163 mg/dL <=200 [facility] Cholesterol in HDL [Mass/Vol] 43 mg/dL 40-60 [facility] Comment on above: > or =60 mg/dl - LOW CARDIOVASCULAR RISK<40 mg/dl - HIGH CARDIOVASCULAR RISK CO2 [Moles/Vol] 32.1 mmol/L High 21.0-32.0 [facility] Creatinine [Mass/Vol] 1.14 mg/dL 0.70-1.30 [facility] GFR/1.73 sq M.predicted MDRD (S/P/Bld) [Vol rate/Area] mL/min/{1.73_m2} >=60 mL/min/1.73m 2 [facility] Glucose [Mass/Vol] 153 mg/dL High 74-106 [facility] Potassium [Moles/Vol] 4.1 mmol/L 3.5-5.1 [facility] Protein [Mass/Vol] 7.9 g/dL 6.4-8.2 [facility] Sodium [Moles/Vol] 141 mmol/L 136-145 [facility] Triglyceride [Mass/Vol] 115 mg/dL <=150 [facility] Urea nitrogen [Mass/Vol] 8.0 mg/dL 7.0-18.0 [facility] Urea nitrogen/Creatinine [Mass ratio] 7.0 mg/mg [facility] Laboratory - Hematology and Cell countson 02-22-2024 HbA1c (Bld) [Mass fraction] 7.1 % High 4.5-6.2 [facility] Comment on above: ADA RECOMMENDED LIMI T 4.0 - 6.0ADA THERAPEUTIC TARGET < 7.0ACTION SUGGESTED> 7.0 Immature granulocytes/100 WBC (Bld) 0.1 % 0.0-0.5 [facility] Leukocytes [#/volume] correc ricki for nucleated erythrocytes in Blood by Automated counon 02-22-2024 WBC corrected for nucl RBC Auto (Bld) [#/Vol] Leukocytes [#/volume] corrected for nucleated erythrocytes in Blood by Automated coun 4.0-11.0 [facility] Lymphocytes Auto (Bld) [#/Vo l]on 02-22-2024 Lymphocytes (Bld) [#/Vol] Lymphocytes [#/volume] in Blood by Automated count 1.2-3.8 [facility] Lymphocytes/100 WBC Auto (Bl d)on 02-22-2024 Lymphocytes/100 WBC (Bld) Lymphocytes/100 leukocytes in Blood by Automated count 20.5-60.0 [facility] MCH Auto (RBC) [Entitic mass ]on 02-22-2024 MCH (RBC) [Entitic mass] MCH [Entitic mass] by Automated count 25.9-34.0 [facility] MCHC Auto (RBC) [Mass/Vol]on 02-22-2024 MCHC (RBC) [Mass/Vol] MCHC [Mass/volume] by Automated count 29.9-35.2 [facility] MCV Auto (RBC) [Entitic vol] on 02-22-2024 MCV (RBC) [Entitic vol] MCV [Entitic volume] by Automated count 80.0-94.0 [facility] Microalbumin [Mass/volume] i n Urineon 02-22-2024 Albumin DL <= 20 mg/L (U) [Mass/Vol] Microalbumin [Mass/volume] in Urine <=30.0 [facility] Monocytes Auto (Bld) [#/Vol] on 02-22-2024 Monocytes (Bld) [#/Vol] Automated blood monocyte count 0.3-0.8 [facility] Monocytes/100 WBC Auto (Bld) on 02-22-2024 Monocytes/100 WBC (Bld) Automated monocyte % 1.7-12.0 [facility] Neutrophils Auto (Bld) [#/Vo l]on 02-22-2024 Neutrophils (Bld) [#/Vol] Neutrophils [#/volume] in Blood by Automated count 1.4-6.5 [facility] Neutrophils/100 WBC Auto (Bl d)on 02-22-2024 Neutrophils/100 WBC (Bld) Automated neutrophil % 43.0-75.0 [facility] No Panel Informationon 02-21 Eosinophils # (Auto) 0.2 10 3/uL 0.0-0.7 [facility] Immature Granulocyte # (Auto) 0.01 10 3/uL 0.00-0.03 [facility] Prostate Specific Antigen Screen 0.64 ng/mL <=4.00 [facility] Urine Random Creatinine 133.90 mg/dL 20.00-300.00 [facility] Platelet mean volume Auto (B ld) [Entitic vol]on 02-22-2024 Platelet mean volume (Bld) [Entitic vol] Platelet mean volume [Entitic volume] in Blood by Automated count Low 9.5-13.5 [facility] Platelets Auto (Bld) [#/Vol] on 02-22-2024 Platelets (Bld) [#/Vol] Platelets [#/volume] in Blood by Automated count 150-450 [facility] RBC Auto (Bld) [#/Vol]on RBC (Bld) [#/Vol] Erythrocytes [#/volume] in Blood by Automated count 4.70-6.10 [facility] Serum or plasma albumin/glob ulin mass ratioon 02-22-2024 Albumin/Globulin [Mass ratio] Serum or plasma albumin/globulin mass ratio [facility] Serum or plasma anion gap de terminationon 02-22-2024 Anion gap [Moles/Vol] Serum or plasma anion gap determination [facility] Serum or plasma total choles terol/high density lipoprotein (HDL) cholesterol mass luís 02-22-2024 Cholesterol.total/C holesterol in HDL [Mass ratio] Serum or plasma total cholesterol/high density lipoprotein (HDL) cholesterol mass rat [facility] Comment on above: 3.3 - 4.4 LOW RISK4. 4 - 7.1 AVERAGE RISK7.1 - 11.0 MODERATE RISK>11.0 HIGH RISK Urine microalbumin/creatinin e mass ratioon 02-22-2024 Albumin/Creatinine DL <= 20 mg/L (U) [Mass ratio] Urine microalbumin/creatini ne mass ratio 0.0-29.9 [facility] Comment on above: NO MICROALBUMINURIA 0-29 MG/GCLINICAL MICROALBUMINURIA 30-300 MG/GMACROALBUMINURIA >300 MG/G Glucose mean value [Mass/vol ume] in Blood Estimated from glycated hemoglobinon 08-24-2023 Average glucose Estimated from glycated hemoglobin (Bld) [Mass/Vol] 143 mg/dL [facility] Laboratory - Hematology and Cell countson 08-24-2023 HbA1c (Bld) [Mass fraction] 6.6 % 4.5-6.2 [facility] Comment on above: ADA RECOMMENDED LIMI T 4.0 - 6.0ADA THERAPEUTIC TARGET < 7.0ACTION SUGGESTED> 7.0 [facility] meagan 02-23-2023 Albumin [Mass/Vol] 4.852283 g/dL Normal 3.4-5.0 g/dL [facility] [employer] Other ALP [Catalytic activity/Vol] 57 U/L Normal 46-116 U/L [facility] Other ALT [Catalytic activity/Vol] 42 U/L Normal 16-63 U/L [facility] Other Anion gap [Moles/Vol] 15.1 mmol/L [employer] Other AST [Catalytic activity/Vol] 20 U/L Normal 15-37 U/L [facility] Other Bilirubin [Mass/Vol] 0.7724202 mg/dL Normal 0.2-1.0 mg/dL [facility] Other Calcium [Mass/Vol] 8.1785884 mg/dL Normal 8.5-10 .1 mg/dL [employer] Other Chloride [Moles/Vol] 102 mmol/L Normal 98-107 mmol/L [facility] Other CO2 [Moles/Vol] 29.76353635 mmol/L Normal 21.0-3 2.0 mmol/L [employer] Other Creatinine [Mass/Vol] 1.95400313 mg/dL Normal 0.70-1.30 mg/dL [facility] Other Glucose [Mass/Vol] 112 mg/dL High 74-106 mg/dL [facility] [employer] Other Potassium [Moles/Vol] 4.70239981 mmol/L Normal 3.5-5.1 mmol/L [facility] Other Protein [Mass/Vol] 8.994518 g/dL Normal 6.4-8.2 g/dL [facility] [employer] Other Sodium [Moles/Vol] 142 mmol/L Normal 136-145 mmol/L [employer] Other Urea nitrogen [Mass/Vol] 14.5332982 mg/dL Normal 7.0-18.0 mg/dL [employer] Other Urea nitrogen/Creatinine [Mass ratio] 12.4 mg/mg [facility] Other Comprehensive Metabolic Panel 3.8 g/dL [facility] Other Comprehensive Metabolic Panel 1.1 [facility] Other Comprehensive Metabolic Panel see note [employer] Other Comprehensive Metabolic Panel >60 >=60 [facility] Other Lipid Panelon 02-23-2023 Cholesterol [Mass/Vol] 167 mg/dL <=200 mg/dL [facility] [employer] Other Cholesterol in HDL [Mass/Vol] 42 mg/dL Normal 40-60 mg/dL [facility] [employer] Other Triglyceride [Mass/Vol] 103 mg/dL <=150 mg/dL [facility] [employer] Other Lipid Panel 104.4 mg/dL [facility] [employer] Other Lipid Panel 20.6 mg/dL [facility] [employer] Other Lipid Panel 4.0 [facility] [employer] Other PSA SCREENINGon 02-23-2023 PSA SCREENING 0.83 ng/mL <=4.00 ng/mL [facility] [employer] Other CBC AUTO DIFFon 02-10-2022 BASO # 0.1 103/ul Normal 0.0-0.1 [facility] Comment on above: Performed By: #### C BC #### [facility] [address] [place] [address] Dr. David Lares Basophils/100 WBC (Bld) 0.6 % Normal 0.2-2.0 [facility] Comment on above: Performed By: #### C BC #### [facility] [address] [place] [address] Dr. David Lares EO # 1.3 103/ul Critically high 0.0-0.7 [facility] Comment on above: Performed By: #### C BC #### [facility] [address] [place] [address] Dr. David Lares Eosinophils/100 WBC (Bld) 15.2 % Critically high 0.9-7.0 [facility] Comment on above: Performed By: #### C BC #### [facility] [address] [place] [address] Dr. David Lares Erythrocyte distribution width (RBC) [Ratio] 11.9 % Normal 11.0-15.0 [facility] Comment on above: Performed By: #### C BC #### [facility] [address] [place] [address] Dr. David Lares Hematocrit (Bld) [Volume fraction] 40.2 % Critically low 42.0-54.0 [facility] Comment on above: Performed By: #### C BC #### [facility] [address] [place] [address] Dr. David Lares Hemoglobin (Bld) [Mass/Vol] 14.1 g/dL Normal 14.0-18.0 [facility] Comment on above: Performed By: #### C BC #### [facility] [address] [place] [address] Dr. David Lares IG # 0.01 10e3/ul Normal 0.00-0.03 [facility] Comment on above: Performed By: #### C BC #### [facility] [address] [place] [address] Dr. David Lares IG % 0.1 % Normal 0.0-0.5 [facility] Comment on above: Performed By: #### C BC #### [facility] [address] [place] [address] Dr. David Lares LYMPH # 3.6 103/ul Normal 1.2-3.8 [facility] Comment on above: Performed By: #### C BC #### [facility] [address] [place] [address] Dr. David Lares Lymphocytes/100 WBC (Bld) 40.9 % Normal 20.5-60.0 [facility] Comment on above: Performed By: #### C BC #### [facility] [address] [place] [address] Dr. David Lares MANUAL DIFF REQ NO Normal [facility] Comment on above: Performed By: #### C BC #### [facility] [address] [place] [address] Dr. David Lares MCH (RBC) [Entitic mass] 31.8 pg Normal 25.9-34.0 [facility] Comment on above: Performed By: #### C BC #### [facility] [address] [place] [address] Dr. David Lares MCHC (RBC) [Mass/Vol] 35.1 g/dL Normal 29.9-35.2 [facility] Comment on above: Performed By: #### C BC #### [facility] [address] [address] [address] David Lares MCV (RBC) [Entitic vol] 90.5 fL Normal 80.0-94.0 [facility] Comment on above: Performed By: #### C BC #### [facility] [address] [place] [address] Dr. David Lares MONO # 0.7 103/ul Normal 0.3-0.8 [facility] Comment on above: Performed By: #### C BC #### [facility] [address] [place] [address] Dr. David Lares Monocytes/100 WBC (Bld) 8.3 % Normal 1.7-12.0 [facility] Comment on above: Performed By: #### C BC #### [facility] [address] [place] [address] Dr. David Lares NEUT # 3.0 103/ul Normal 1.4-6.5 [facility] Comment on above: Performed By: #### C BC #### [facility] [address] [place] [address] Dr. David Lares Neutrophils/100 WBC (Bld) 34.9 % Critically low 43.0-75.0 [facility] Comment on above: Performed By: #### C BC #### [facility] [address] [place] [address] Dr. David Lares Platelet mean volume (Bld) [Entitic vol] 8.6 fL Critically low 9.5-13.5 [facility] Comment on above: Performed By: #### C BC #### [facility] [address] [place] [address] Dr. David Lares PLT 244 103/ul Normal 150-450 [facility] Comment on above: Performed By: #### C BC #### [facility] [address] [place] [address] Dr. David Lares RBC 4.44 106/ul Critically low 4.70-6.10 [facility] Comment on above: Performed By: #### C BC #### [facility] [address] [address] [address] David Lares WBC 8.7 103/ul Normal 4.0-11.0 [facility] Comment on above: Performed By: #### C BC #### [facility] [address] [address] [address] David Lares LIPID PROFILEon 02-10-2022 CHOL-HDL RATIO NORM SEE BELOW Normal [facility] Comment on above: Result Comment: 3.3 - 4.4 LOW RISK 4.4 - 7.1 AVERAGE RISK 7.1 - 11.0 MODERATE RISK >11.0 HIGH RISK Performed By: #### C MP, LIPID #### [facility] [address] [place] [address] Dr. David Lares Cholesterol [Mass/Vol] 151 mg/dL Normal <=200 [facility] Comment on above: Performed By: #### C MP, LIPID #### [facility] [address] [place] [address] Dr. David Lares Cholesterol in HDL [Mass/Vol] 44 mg/dL Normal 40-60 [facility] Comment on above: Performed By: #### C MP, LIPID #### [facility] [address] [place] [address] Dr. David Lares Cholesterol in LDL [Mass/Vol] 87.4 mg/dL Normal [facility] Comment on above: Performed By: #### C MP, LIPID #### [facility] [address] [place] [address] Dr. David Lares Cholesterol.total/C holesterol in HDL [Mass ratio] 3.4 {ratio} Normal [facility] Comment on above: Performed By: #### C MP, LIPID #### [facility] [address] [address] [address] David Lares HDL NORMAL > or = 60 mg/dl - LO W CARDIOVASCULAR RISK <40 mg/dl - HIGH CARDIOVASCULAR RISK Normal [facility] Comment on above: Performed By: #### C MP, LIPID #### [facility] [address] [place] [address] Dr. David Lares LDL CALC NORMAL SEE BELOW Normal [facility] Comment on above: Result Comment: <100 mg/dl OPTIMAL 100 - 129 mg/dl NEAR OR ABOVE OPTIMAL 130 - 159 mg/dl BORDERLINE HIGH 160 - 189 mg/dl HIGH >190 mg/dl VERY HIGH Performed By: #### C MP, LIPID #### [facility] [address] [place] [address] Dr. David Lares Triglyceride [Mass/Vol] 98 mg/dL Normal <=150 [facility] Comment on above: Performed By: #### C MP, LIPID #### [facility] [address] [place] [address] Dr. David Lares VLDL CALC 19.6 mg/dL Normal [facility] Comment on above: Performed By: #### C MP, LIPID #### [facility] [address] [place] [address] Dr. David Lares PROF 14(COMP METB)on 022 Albumin [Mass/Vol] 4.2 g/dL Normal 3.4-5.0 [facility] Comment on above: Performed By: #### C MP, LIPID #### [facility] [address] [place] [address] Dr. David Lares Albumin/Globulin [Mass ratio] 1.0 {ratio} Normal [facility] Comment on above: Performed By: #### C MP, LIPID #### [facility] [address] [place] [address] Dr. David Lares ALP [Catalytic activity/Vol] 64 U/L Normal 46-116 [facility] Comment on above: Performed By: #### C MP, LIPID #### [facility] [address] [place] [address] Dr. David Lares ALT [Catalytic activity/Vol] 25 U/L Normal 16-63 [facility] Comment on above: Performed By: #### C MP, LIPID #### [facility] [address] [place] [address] Dr. David Lares Anion gap [Moles/Vol] 10.9 mmol/L Normal [facility] Comment on above: Performed By: #### C MP, LIPID #### [facility] [address] [place] [address] Dr. David Lares AST [Catalytic activity/Vol] 19 U/L Normal 15-37 [facility] Comment on above: Performed By: #### C MP, LIPID #### [facility] [address] [place] [address] Dr. David Lares Bilirubin [Mass/Vol] 0.6 mg/dL Normal 0.2-1.0 [facility] Comment on above: Performed By: #### C MP, LIPID #### [facility] [address] [place] [address] Dr. David Lares Calcium [Mass/Vol] 8.9 mg/dL Normal 8.5-10.1 [facility] Comment on above: Performed By: #### C MP, LIPID #### [facility] [address] [place] [address] Dr. David Lares Chloride [Moles/Vol] 100 mmol/L Normal 98-107 [facility] Comment on above: Performed By: #### C MP, LIPID #### [facility] [address] [place] [address] Dr. David Lares CO2 [Moles/Vol] 29.2 mmol/L Normal 21.0-32.0 [facility] Comment on above: Performed By: #### C MP, LIPID #### [facility] [address] [place] [address] Dr. David Lares Creatinine [Mass/Vol] 0.91 mg/dL Normal 0.70-1.30 [facility] Comment on above: Performed By: #### C MP, LIPID #### [facility] [address] [place] [address] Dr. David Lares EGFR-AF CHADIAN >60 Normal >=60 [facility] Comment on above: Performed By: #### C MP, LIPID #### [facility] [address] [place] [address] Dr. David Lares EGFR-NON AF CHADIAN >60 Normal >=60 [facility] Comment on above: Performed By: #### C MP, LIPID #### [facility] [address] [place] [address] Dr. David Lares Globulin (S) [Mass/Vol] 4.1 g/dL Normal [facility] Comment on above: Performed By: #### C MP, LIPID #### [facility] [address] [place] [address] Dr. David Lares Glucose [Mass/Vol] 101 mg/dL Normal 74-106 [facility] Comment on above: Performed By: #### C MP, LIPID #### [facility] [address] [place] [address] Dr. David Lares Potassium [Moles/Vol] 4.1 mmol/L Normal 3.5-5.1 [facility] Comment on above: Performed By: #### C MP, LIPID #### [facility] [address] [place] [address] Dr. David Lares Protein [Mass/Vol] 8.3 g/dL Critically high 6.4-8.2 [facility] Comment on above: Performed By: #### C MP, LIPID #### [facility] [address] [place] [address] Dr. David Lares Sodium [Moles/Vol] 136 mmol/L Normal 136-145 [facility] Comment on above: Performed By: #### C MP, LIPID #### [facility] [address] [place] [address] Dr. David Lares Urea nitrogen [Mass/Vol] 17.0 mg/dL Normal 7.0-18.0 [facility] Comment on above: Performed By: #### C MP, LIPID #### [facility] [address] [place] [address] Dr. David Lares Urea nitrogen/Creatinine [Mass ratio] 18.7 mg/mg Normal [facility] Comment on above: Performed By: #### C MP, LIPID #### [facility] [address] [place] [address] Dr. David Lares GLYCOHEMOGLOBIN A1Con 2021 ADA RECOMMENDATION SEE BELOW Normal [facility] Comment on above: Result Comment: ADA RECOMMENDED LIMIT 4.0 - 6.0 ADA THERAPEUTIC TARGET < 7.0 ACTION SUGGESTED > 7.0 Performed By: #### A 1C #### [facility] [address] [place] [address] Dr. David Lares Glucose [Mass/Vol] 123 mg/dL Normal [facility] Comment on above: Performed By: #### A 1C #### [facility] [address] [place] [address] Dr. David Lares HbA1c (Bld) [Mass fraction] 5.9 % Normal 4.5-6.2 [facility] Comment on above: Performed By: #### A 1C #### [facility] [address] [place] [address] Dr. David Lares MICROALBUMIN, [place] URon 11-2 mALB 2.5 mg/L Normal <=30.0 [facility] Comment on above: Performed By: #### M ALBR #### [place] [facility] [facility] [address] [place] [address] Dr. David Lares GLYCOHEMOGLOBIN A1Con 2021 ADA RECOMMENDATION SEE BELOW Normal [facility] Comment on above: Result Comment: ADA RECOMMENDED LIMIT 4.0 - 6.0 ADA THERAPEUTIC TARGET < 7.0 ACTION SUGGESTED > 7.0 Performed By: #### A 1C #### [facility] [address] [place] [address] Dr. David Lares Glucose [Mass/Vol] 126 mg/dL Normal [facility] Comment on above: Performed By: #### A 1C #### [facility] [address] [place] [address] Dr. Daivd Lares HbA1c (Bld) [Mass fraction] 6.0 % Normal 4.5-6.2 [facility] Comment on above: Performed By: #### A 1C #### [facility] [address] [place] [address] Dr. David Lares PROF CHEM 8 (BAS METB)on Anion gap [Moles/Vol] 10.6 mmol/L Normal [facility] Comment on above: Performed By: #### B MP #### [facility] [address] [address] [address] David Lares Calcium [Mass/Vol] 8.8 mg/dL Normal 8.5-10.1 [facility] Comment on above: Performed By: #### B MP #### [facility] [address] [address] [address] David Lares Chloride [Moles/Vol] 103 mmol/L Normal 98-107 [facility] Comment on above: Performed By: #### B MP #### [facility] [address] [address] [address] David Lares CO2 [Moles/Vol] 27.5 mmol/L Normal 21.0-32.0 [facility] Comment on above: Performed By: #### B MP #### [facility] [address] [place] [address] Dr. David Lares Creatinine [Mass/Vol] 0.98 mg/dL Normal 0.70-1.30 [facility] Comment on above: Performed By: #### B MP #### [facility] [address] [place] [address] Dr. David Lares EGFR-AF CHADIAN >60 Normal >=60 [facility] Comment on above: Performed By: #### B MP #### [facility] [address] [place] [address] Dr. David Lares EGFR-NON AF CHADIAN >60 Normal >=60 [facility] Comment on above: Performed By: #### B MP #### [facility] [address] [place] [address] Dr. David Lares Glucose [Mass/Vol] 102 mg/dL Normal 74-106 [facility] Comment on above: Performed By: #### B MP #### [facility] [address] [place] [address] Dr. David Lares Potassium [Moles/Vol] 4.1 mmol/L Normal 3.5-5.1 [facility] Comment on above: Performed By: #### B MP #### [facility] [address] [place] [address] Dr. David Lares Sodium [Moles/Vol] 137 mmol/L Normal 136-145 [facility] Comment on above: Performed By: #### B MP #### [facility] [address] [place] [address] Dr. David Lares Urea nitrogen [Mass/Vol] 14.0 mg/dL Normal 7.0-18.0 [facility] Comment on above: Performed By: #### B MP #### [facility] [address] [place] [address] Dr. David Lares Urea nitrogen/Creatinine [Mass ratio] 14.3 mg/mg Normal [facility] Comment on above: Performed By: #### B MP #### [facility] [address] [place] [address] Dr. David Lares CBC AUTO DIFFon 05-28-2021 BASO # 0.1 103/ul Normal 0.0-0.1 [facility] Comment on above: Performed By: #### C BC #### [facility] [address] [place] [address] Dr. David Lares Basophils/100 WBC (Bld) 0.7 % Normal 0.2-2.0 [facility] Comment on above: Performed By: #### C BC #### [facility] [address] [place] [address] Dr. David Lares EO # 0.5 103/ul Normal 0.0-0.7 [facility] Comment on above: Performed By: #### C BC #### [facility] [address] [place] [address] Dr. David Lares Eosinophils/100 WBC (Bld) 5.6 % Normal 0.9-7.0 [facility] Comment on above: Performed By: #### C BC #### [facility] [address] [place] [address] Dr. David Lares Erythrocyte distribution width (RBC) [Ratio] 11.8 % Normal 11.0-15.0 [facility] Comment on above: Performed By: #### C BC #### [facility] [address] [place] [address] Dr. David Lares Hematocrit (Bld) [Volume fraction] 40.7 % Critically low 42.0-54.0 [facility] Comment on above: Performed By: #### C BC #### [facility] [address] [place] [address] Dr. David Lares Hemoglobin (Bld) [Mass/Vol] 14.0 g/dL Normal 14.0-18.0 [facility] Comment on above: Performed By: #### C BC #### [facility] [address] [place] [address] Dr. David Lares IG # 0.01 10e3/ul Normal 0.00-0.03 [facility] Comment on above: Performed By: #### C BC #### [facility] [address] [place] [address] Dr. David Lares IG % 0.1 % Normal 0.0-0.5 [facility] Comment on above: Performed By: #### C BC #### [facility] [address] [place] [address] Dr. David Lares LYMPH # 3.1 103/ul Normal 1.2-3.8 [facility] Comment on above: Performed By: #### C BC #### [facility] [address] [place] [address] Dr. David Lares Lymphocytes/100 WBC (Bld) 37.3 % Normal 20.5-60.0 [facility] Comment on above: Performed By: #### C BC #### [facility] [address] [place] [address] Dr. David Lares MANUAL DIFF REQ NO Normal [facility] Comment on above: Performed By: #### C BC #### [facility] [address] [place] [address] Dr. David Lares MCH (RBC) [Entitic mass] 32.3 pg Normal 25.9-34.0 [facility] Comment on above: Performed By: #### C BC #### [facility] [address] [place], [place] [id number] Dr. David Lares MCHC (RBC) [Mass/Vol] 34.4 g/dL Normal 29.9-35.2 [facility] Comment on above: Performed By: #### C BC #### [facility] [address] [place] [address] Dr. David Lares MCV (RBC) [Entitic vol] 93.8 fL Normal 80.0-94.0 [facility] Comment on above: Performed By: #### C BC #### [facility] [address] [place] [address] Dr. David Lares MONO # 0.8 103/ul Normal 0.3-0.8 [facility] Comment on above: Performed By: #### C BC #### [facility] [address] [place] [address] Dr. David Lares Monocytes/100 WBC (Bld) 8.9 % Normal 1.7-12.0 [facility] Comment on above: Performed By: #### C BC #### [facility] [address] [place] [address] Dr. David Lares NEUT # 4.0 103/ul Normal 1.4-6.5 [facility] Comment on above: Performed By: #### C BC #### [facility] [address] [place] [address] Dr. David Lares Neutrophils/100 WBC (Bld) 47.4 % Normal 43.0-75.0 [facility] Comment on above: Performed By: #### C BC #### [facility] [address] [place] [address] Dr. David Lares Platelet mean volume (Bld) [Entitic vol] 8.5 fL Critically low 9.5-13.5 [facility] Comment on above: Performed By: #### C BC #### [facility] [address] [place] [address] Dr. David Lares PLT 208 103/ul Normal 150-450 [facility] Comment on above: Performed By: #### C BC #### [facility] [address] [place] [address] Dr. David Lares RBC 4.34 106/ul Critically low 4.70-6.10 [facility] Comment on above: Performed By: #### C BC #### [facility] [address] [place], [place] [address] Dr. David Lares WBC 8.4 103/ul Normal 4.0-11.0 [facility] Comment on above: Performed By: #### C BC #### [facility] [address] [address] [address] 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, right shoulder FINAL DX: PRINCIPAL: M75.01 Adhesive capsulitis of right shoulder SECONDARY: PYMT PROC APC STAT DESCRIPTION DOCTOR NAME DATE 70531 5113 J1 Arthroscopy, shoulder, Álvaro Hayes And [...] Lebron Revised Date Saved: 11/08/2018 04:31 pm [facility] Coding Summary CODING DATE: 11/08/2018 [facility] STATUS: Home PAYOR: Commercial Insurance APC DESCRIPTION 5113 Level 3 Musculoskeletal Procedures ADMIT DX: REASON FOR VISIT DX: 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 However, the narrative phrase printed from the coding software may appear abbreviated, or result in slightly different terminology. 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 However, the narrative phrase printed from the coding software may appear abbreviated, or result in slightly different terminology. Coded By: Jackelyn Lebron Date Saved: 11/08/2018 04:30 pm [facility] History and Physicalon 11-08 History and Physical [id number] .[id number] [facility] MAGR Intraoperative Recordon 11-08-2018 MAGR Intraoperative Record MAGR Intra-Op Record Summary Primary Physician: Álvaro Hayes DO Finalized Date/Time: 11/08/18 12:12:53 Pt. Name: DAI GREENWOOD/Sex: 1965 MALE Med Rec #: [id number] Physician: Álvaro Hayes DO Financial #: [id number] Pt. Type: D Room/Bed: / Admit/Disch: 11/05/18 [...] Role Performed Surgeon - Primary Anesthesiologist of Second Vp Hr Assessment Record Time In 11/05/18 09:55:00 11/05/18 09:55:00 11/05/18 09:55:00 Time Out 11/05/18 11:10:00 11/05/18 11:10:00 11/05/18 11:10:00 Procedure Arthroscopy Arthroscopy Arthroscopy Shoulder(Right) Shoulder(Right) Shoulder(Right) Last Modified By: Gail MCGRATH, Alyce Reynolds RN, Alyce Carranza RN 11/05/18 11:24:52 11/05/18 11:24:52 11/05/18 11:24:52 Entry 4 Entry 5 Case Attendee Jackelyn Lyons RN, CST, Ashley Role Performed Personnel Specialist Scrub Personnel Time In 11/05/18 09:55:00 [...] Unfinalizing Freetext Reason for Unfinalizing 11/05/18 14:23 [facility]ation [facility] 9 [facility] PACU Record [facility] PACU Record Summary Primary Physician: Álvaro Hayes DO Finalized Date/Time: 11/08/18 12:14:23 Pt. Name: VALORIE DAILILY Rodas/Sex: 1965 MALE Med Rec #: [id number] Physician: Álvaro Hayes DO Financial #: [id number] Pt. Type: D Room/Bed: / Admit/Disch: 11/05/18 07:54:04 - 11/05/18 13:28:00 Institution: PACU Case Times MAGR Entry 1 In PACU I 11/05/18 11:15:00 Discharge from PACU 11/05/18 11:58:00 I Last Modified By: Charlene Tovar RN 11/08/18 12:14:18 Finalized By: Charlene Tovar RN Document Signatures Signed By: Charlene Tovar RN 11/08/18 12:14 [facility] Provider Orderson 11-08-2018 Provider Orders [id number] [place] [address] Consent Formson 11-06-2018 Consent Forms [id number] [place] [address] Discharge Instructionson Discharge Instructions [id number] [place] [address] Medication Managementon 10-12 Medication Management [id number] [place] [address] Anesthesia Noteon 11-05-2018 Anesthesia Note Patient: DAI [...] history): All Problems Hypertension / SNOMED CT 6599307974 / Confirmed Histories Family History: No family history items have been selected or recorded. Procedure history: Pilonidal cyst (33507047). Colonoscopy (226031659). Esophagogastroduodeno scopy (242541987). Social History Alcohol Assessment Use: Current. Beer, [...] rhythm. Review / Management Laboratory Results Plan [place] [employer]#( A) physical status classification: [...] on: 11/05/2018 09:38 EDT] Ruslan Bernal MD [facility] Inpatient Patient Summaryon 11-05-2018 Inpatient Patient Summary [address] [address] Patient Discharge Instructions Name: DAI GREENWOOD : 1965 Patient Address: [address] [place] [address] Primary Care Provider: Name: James Khan After you are discharged if you find you have any questions, please, call [phone] ext [phone] to speak to a nurse. [...] alcohol and/or drug addiction problems; contact the [facility] 03/10 Crisis Hotline -Text 4HEYD [place] 327790. If you received any narcotics, sedation, or [...] business decisions or sign any legal documents [facility] would like to thank you for allowing us to assist you with your healthcare needs. The following includes patient education materials and information regarding your injury/illness. DAI GREENWOOD has been given the following list of follow-up instructions, prescriptions, and patient education materials: Follow-up Instructions With: Address: When: Álvaro Hayes [address] [place] [address], [address] [place] [address] Business (2) 11/15/2018 9:00 AM With: Address: When: James Khan [address] [place] [address] Business (1) Medications During the course [...] or concerns, please call the office at [phone] -Follow up as scheduled Viruses or Bacteria [...] for Disease Control and Prevention November 2013 [facility] MAGR Intraoperative Recordon 11-05-2018 [facility] Intraoperative Record MAGR Intra-Op Record Summary Primary Physician: Finalized Date/Time: 11/05/18 10:04:36 Pt. Name: VALORIEDAI SCHWARTZ.O.B./Sex: 1965 MALE Med Rec #: [id number] Physician: Álvaro Hayes DO Financial #: [id number] Pt. Type: D Room/Bed: / Admit/Disch: 11/05/18 [...] Klaehn, Margaret RN Role Performed Anesthesiologist of Second Vp Hr Assessment Second Vp Hr Assessment Record Time In 11/05/18 09:30:00 11/05/18 09:30:00 [...] Signed By: Brandy Paige RN 11/05/18 10:04 [facility] MAGR Postoperative Recordon 11-05-2018 MAGR Postoperative Record MAGR Phase II Record Summary Primary Physician: Álvaro Hayes DO Finalized Date/Time: 11/05/18 13:38:50 Pt. Name: DAI GREENWOOD Robinson Meyer./Sex: 1965 MALE Med Rec #: [id number] Physician: Álvaro Hayes DO Financial #: [id number] Pt. Type: D Room/Bed: / Admit/Disch: 11/05/18 [...] Signed By: Brandy Paige RN 11/05/18 13:38 [facility] 0 11-05-2018 [facility] Preoperative Record MAGR Pre-Op Record Summary Primary Physician: Álvaro Hayes DO Finalized Date/Time: 11/05/18 10:06:08 Pt. Name: ASMITA GREENWOODLILY Rodas/Sex: 1965 MALE Med Rec #: [id number] Physician: Álvaro Hayes DO Financial #: [id number] Pt. Type: D Room/Bed: / Admit/Disch: 11/05/18 [...] By: Brandy Paige RN 11/05/18 10:06 Normal [facility] Operative Report - Surgeon/P mychal 11-05-2018 [...] 11/05/2018 10:56 EDT] Álvaro Hayes DO Normal [facility] Patient Handouton 11-05-[address] [...] or concerns, please call the office at [phone] -Follow up as scheduled [facility] Progress Note - Nurseon 10-11 Progress Note - Nurse PAT review done per Dr. Anderson, no orders received. [Electronically Signed on: 10/25/2018 14:22 EDT] Aubrie Quiroz RN [Verified on: 10/25/2018 14:22 EDT] Aubrie Quiroz RN [facility] Coding Summaryon 10-24-2018 Coding Summary CODING DATE: 10/24/2018 [facility] STATUS: Home PAYOR: Commercial Insurance APC [...] Rosina Cullen Date Saved: 10/24/2018 11:30 am [facility] .Auto Diff 1on 10-23-2018 Auto Lyon % 10 % Normal -12 [facility] Comment on above: Performed By: #### 1 [id number], [id number], [id number] #### [facility] (DEFAULT) [address] [place] [address] Baso Abs# 0.0 x10 Normal 0.0-0.2 [facility] Comment on above: Performed By: #### 1 [id number], [id number], [id number] #### [facility] (DEFAULT) [address] [place] [address] Basophils/100 WBC (Bld) 0.5 % Normal 0.2-2.0 [facility] Comment on above: Performed By: #### 1 [id number], [id number], [id number] #### [facility] (DEFAULT) [address] [place] [address] Eos Abs# 0.5 x10 High 0.0-0.4 [facility] Comment on above: Performed By: #### 1 [id number], [id number], [id number] #### [facility] (DEFAULT) [address] [place] [address] Eosinophils/100 WBC (Bld) 5.6 % High 0.9-4.0 [facility] Comment on above: Performed By: #### 1 [id number], [id number], [id number] #### [facility] (DEFAULT) [address] [place] [address] Lymphocytes (Bld) [#/Vol] 3.0 x10 High 1.3-2.9 [facility] Comment on above: Performed By: #### 1 [id number], [id number], [id number] #### [facility] (DEFAULT) [address] [place] [address] Lymphocytes/100 WBC (Bld) 35 % Normal 14-48 [facility] Comment on above: Performed By: #### 1 [id number], [id number], [id number] #### [facility] (DEFAULT) [address] [place] [address] Lyon Abs# 0.8 x10 Normal 0.0-0.8 [facility] Comment on above: Performed By: #### 1 [id number], [id number], [id number] #### [facility] (DEFAULT) [address] [place] [address] Neut Abs# 4.1 x10 Normal 1.5-9.2 [facility] Comment on above: Performed By: #### 1 [id number], [id number], [id number] #### [facility] (DEFAULT) [address] [place] [address] Neutrophils/100 WBC (Bld) 49 % Normal 44-88 [facility] Comment on above: Performed By: #### 1 [id number], [id number], [id number] #### [facility] (DEFAULT) [address] [place] [address] BMP Standardon 10-23-2018 eGFR Non AA >60 [facility] Comment on above: Performed By: #### 1 [id number], [id number], [id number] #### [facility] (DEFAULT) [address] [place] [address] eGFR AA >60 [facility] Comment on above: Result Comment: Forest Ranger Technician sacha Kidney disease could be indicated at eGFRs of less than 60 ml/min/1.73m2. Kidney Failure is indicated at less than 15 ml/min/1.73m2 Performed By: #### 1 [id number], [id number], [id number] #### [facility] (DEFAULT) [address] [place] [address] Anion gap [Moles/Vol] 16.0 mmol/L Normal 5.0-19.0 [facility] Comment on above: Performed By: #### 1 [id number], [id number], 7997060 #### [facility] (DEFAULT) [address] [place] [address] Calcium [Mass/Vol] 9.4 mg/dL Normal 8.9-10.3 [facility] Comment on above: Performed By: #### 1 [id number], [id number], [id number] #### [facility] (DEFAULT) [address] [place] [address] Chloride [Moles/Vol] 102 mmol/L Normal 101-111 [facility] Comment on above: Performed By: #### 1 [id number], [id number], [id number] #### [facility] (DEFAULT) [address] [place] [address] CO2 [Moles/Vol] 25 mmol/L Normal 21-32 [facility] Comment on above: Performed By: #### 1 [id number], [id number], [id number] #### [facility] (DEFAULT) [address] [place] [address] Creatinine [Mass/Vol] 1.02 mg/dL Normal 0.90-1.30 [facility] Comment on above: Performed By: #### 1 [id number], [id number], [id number] #### [facility] (DEFAULT) [address] [place] [address] Glucose [Mass/Vol] 127.0 mg/dL High 74.0-118.0 [facility] Comment on above: Performed By: #### 1 [id number], [id number], [id number] #### [facility] (DEFAULT) [address] [place] [address] Osmolality [Osmolality] 279 mOsm/L [facility] Comment on above: Performed By: #### 1 [id number], [id number], [id number] #### [facility] (DEFAULT) [address] [place] [address] Potassium [Moles/Vol] 4.1 mmol/L Normal 3.6-5.1 [facility] Comment on above: Performed By: #### 1 [id number], [id number], [id number] #### [facility] (DEFAULT) [address] [place] [address] Sodium [Moles/Vol] 139.0 mmol/L Normal 136.0-144.0 [facility] Comment on above: Performed By: #### 1 [id number], [id number], [id number] #### [facility] (DEFAULT) [address] [place] [address] Urea nitrogen [Mass/Vol] 13 mg/dL Normal 8-26 [facility] Comment on above: Performed By: #### 1 [id number], [id number], [id number] #### [facility] (DEFAULT) [address] [place] [address] Urea nitrogen/Creatinine [Mass ratio] 13.0 mg/mg Normal 4.6-16.2 [facility] Comment on above: Performed By: #### 1 [id number], [id number], [id number] #### [facility] (DEFAULT) [address] [place] [address] CBC w/ Auto Diffon 9 Erythrocyte distribution width (RBC) [Ratio] 12.3 % Normal 11.5-15.0 [facility] Comment on above: Performed By: #### 1 [id number], [id number], [id number] #### [facility] (DEFAULT) [address] [place] [address] Hematocrit (Bld) [Volume fraction] 42.4 % Normal 34.8-51.9 [facility] Comment on above: Performed By: #### 1 [id number], [id number], 6065161 #### [facility] (DEFAULT) [address] [place] [address]79 Hemoglobin (Bld) [Mass/Vol] 14.7 g/dL Normal 11.8-17.7 [facility] Comment on above: Performed By: #### 1 [id number], [id number], [id number] #### [facility] (DEFAULT) [address] [place] [address] 28090 Man Diff? Auto Normal [facility] Comment on above: Performed By: #### 1 [id number], [id number] #### [facility] (DEFAULT) [address] [place] [address] 72366 MCH (RBC) [Entitic mass] 32 pg Normal 24-34 [facility] Comment on above: Performed By: #### 1 [id number], [id number] #### [facility] (DEFAULT) [address] [place] [address] 32445 MCHC (RBC) [Mass/Vol] 35 g/dL Normal 26-37 [facility] Comment on above: Performed By: #### 1 [id number], [id number], [id number] #### [facility] (DEFAULT) [address] [place] [address] 78921 MCV (RBC) [Entitic vol] 91 fL Normal 81-100 [facility] Comment on above: Performed By: #### 1 [id number], [id number] #### [facility] (DEFAULT) [address] [place] [address] 17080 Platelet mean volume (Bld) [Entitic vol] 8.9 fL Normal 6.3-10.2 [facility] Comment on above: Performed By: #### 1 [id number], [id number], [id number] #### [facility] (DEFAULT) [address] [place] [address] 03817 Platelets (Bld) [#/Vol] 255 x10 Normal 138-427 [facility] Comment on above: Performed By: #### 1 [id number], [id number], [id number] #### [facility] (DEFAULT) [address] [place] [address] 72735 RBC (Bld) [#/Vol] 4.67 x10 Normal 3.70-5.30 [facility] Comment on above: Performed By: #### 1 [id number], [id number], [id number] #### [facility] (DEFAULT) [address] [place] [address] 52871 WBC (Bld) [#/Vol] 8.5 x10 Normal 3.5-10.5 [facility] Comment on above: Performed By: #### 1 [id number], [id number], [id number] #### [facility] (DEFAULT) [address] [place] [address] 44308 Vital Signs Date Time Vital Sign Value Performing Clinician Facility 05-21-2024 15:31-0400 Body height 172.72 cm [facility] 05-21-2024 15:31-0400 Body mass index (BMI) [Ratio] 30.3 kg/m2 [facility] 05-21-2024 15:31-0400 Body weight 90.49 kg [facility] 05-21-2024 15:31-0400 Diastolic blood pressure 70 mm[Hg] [facility] 05-21-2024 15:31-0400 Heart rate 74 /min [facility] 05-21-2024 15:31-0400 Respiratory rate 12 /min [facility] 05-21-2024 15:31-0400 SaO2% (BldA) [Mass fraction] 98 % [facility] 05-21-2024 15:31-0400 Systolic blood pressure 130 mm[Hg] [facility] 08-29-2023 15:33-0400 Body height 172.72 cm [facility] 08-29-2023 15:33-0400 Body mass index (BMI) [Ratio] 31.6 kg/m2 [facility] 08-29-2023 15:33-0400 Body weight 94.57 kg [facility] 08-29-2023 15:33-0400 Diastolic blood pressure 87 mm[Hg] [facility] 08-29-2023 15:33-0400 Heart rate 70 /min [facility] 08-29-2023 15:33-0400 Respiratory rate 12 /min [facility] 08-29-2023 15:33-0400 Systolic blood pressure 163 mm[Hg] [facility] 02-27-2023 15:30-0500 Body height 172.72 cm James Ball Other [facility] Other 02-27-2023 15:30-0500 Body mass index (BMI) [Ratio] 30.56 kg/m2 James Ball Other [facility] Other 02-27-2023 15:30-0500 Body weight 91.17 kg James Ball Other [facility] [employer] Other 02-27-2023 15:30-0500 Diastolic blood pressure 87 mm[Hg] James Ball Other [facility] Other 02-27-2023 15:30-0500 Systolic blood pressure 163 mm[Hg] James Ball Other [facility] Other 09-26-2022 15:30-0400 Body height 172.72 cm James Ball Other [facility] Other 09-26-2022 15:30-0400 Body mass index (BMI) [Ratio] 31.35 kg/m2 James Ball Other [facility] Other 09-26-2022 15:30-0400 Body weight 93.53 kg James Ball Other [facility] Other 09-26-2022 15:30-0400 Diastolic blood pressure 80 mm[Hg] James Ball Other [facility] Other 09-26-2022 15:30-0400 Respiratory rate 12 /min James Khan Other [facility] Other 09-26-2022 15:30-0400 Systolic blood pressure 128 mm[Hg] James Khan Other [facility] Other Encounters Encounter Date Encounter Type Care Provider Facility Start: 05-21-2024 End: 05-21-2024 ambulatory [facility] Work Phone: Start: 05-21-2024 End: 05-21-2024 Patient encounter procedure [facility] Physician [facility] Work Phone: Start: 02-22-2024 Non-patient / Non-visit [facility] Physician [facility] Work Phone: Start: 02-19-2024 Patient encounter status [facility] Start: 08-29-2023 End: 08-29-2023 ambulatory [facility] Work Phone: Start: 08-29-2023 End: 08-29-2023 Patient encounter procedure [facility] Physician [facility] Work Phone: Start: 08-24-2023 Non-patient / Non-visit [facility] Physician [facility] Work Phone: Start: 06-21-2023 Non-patient / Non-visit [facility] Physician [facility] Work Phone: Start: 03-02-2023 End: 03-02-2023 ambulatory James Khan Other [facility] Other Start: 03-02-2023 Telephone encounter James [facility] Start: 02-27-2023 End: 02-27-2023 ambulatory James Khan Other [facility] Other Start: 02-27-2023 Encounter for genera l adult medical examination without abnormal findings James Khan [facility] Start: 02-27-2023 Periodic preventive med est patient 40-64yrs James Khan [facility] Start: 02-27-2023 Telephone encounter [facility] Start: 02-22-2023 End: 02-22-2023 ambulatory James Khan Other [facility] Other Start: 02-22-2023 Encounter for genera l adult medical examination without abnormal findings James Khan [facility] Start: 02-22-2023 Telephone encounter [facility] Start: 09-26-2022 End: 09-26-2022 ambulatory James Bill Other [facility] Other Start: 09-26-2022 Office outpatient vi sit 25 minutes James Khan [facility] Start: 02-22-2022 Adult health examination James Khan Other [facility] Other Start: 02-17-2022 Encounter for genera l adult medical examination without abnormal findings DR JAMES KHAN [facility] Start: 02-10-2022 End: 02-11-[address] [...] Comment on above: Performed By: #### P [facility] #### [facility] [address] [place] [address] Dr. David Lares Start: 01-24-2018 General examination of patient James Khan Other Depression screening Cici Khan Other Plan of Treatment Date Care Activity Detail Author Comprehensive metabo lic 2000 panel - Serum or Plasma [facility] enter [facility] Immunizations Immunization Date Immunization Notes Care Provider Fa sonia 02-21-2024 influenza, seasonal, injectable, preservative free [facility] 02-27-2023 influenza, injectabl e, quadrivalent, contains preservative James Khan Other [facility] Other 02-27-2023 influenza, injectabl e, quadrivalent, preservative free [facility] 03-19-2022 COVID-19 Vaccine Pfi zer - Documentation Purposes Only James Khan Other [facility] 02-16-2022 influenza virus vaccine, split virus (incl. purified surface antigen) James Bill Other [facility] Other 02-16-2022 influenza virus vaccine, unspecified formulation [facility] 03-10-2021 COVID-19 Vaccine Pfi zer - Documentation Purposes Only James Khan Other [facility] 01-15-2021 influenza virus vaccine, split virus (incl. purified surface antigen) James Khan Other [facility] Other 01-15-2021 influenza virus vaccine, unspecified formulation [facility] 06-20-2020 COVID-19 Vaccine Pfi zer - Documentation Purposes Only aJmes Khan Other [facility] 05-30-2020 COVID-19 Vaccine Pfi zer - Documentation Purposes Only James Khan Other [facility] 01-14-2020 influenza virus vaccine, split virus (incl. purified surface antigen) James Khan Other [facility] Other 01-14-2020 influenza virus vaccine, unspecified formulation [facility] Payers Date Payer Category Payer Unknown [id number] 1965 Unknown [id number] 1965 Unknown [id number] 1965 Unknown [id number] 1960 Unknown [id number] Private Health Insurance [facility] [id number] Social History Date Type Detail Facility Sex Assigned At [facility] Other Sex Assigned At Sex Assigned At Bir th [facility] Other Start: 1965 Sex Assigned At Male F [facility] Tobacco smoking status MAIS Unknown if ever smoked [facility] Work Phone: Start: 05-21-2024 Sex Male (finding) [facility] Evaluation note 02-27-2023 Note Date & Type [...] (ICD-10 - Z12.5) Yearly PSA and ZAIRA [facility] Other Evaluation note 02-22-2023 Note Date & Type Note Facility 02-22-2023 Evaluation note Encounter Date Diagnosis Assessment Notes Feb, Wellness examination (ICD-10 - Z00.00) [facility] Other Evaluation note Note Date & Type Note Facility Evaluation note [facility] Other Evaluation note Note Date & Type Note Facility Evaluation note No Information [facility] Other Evaluation note Note Date & Type Note Facility Evaluation note Diagnosis Onset Date History of nephrolithiasis a cute Hypertension acute Type 2 diabetes mellitus with hyperglycemia acute [facility] Work Phone: Evaluation note Note Date & Type Note Facility Evaluation note Diagnosis Onset Date Resolution History of nephrolithiasis acute May 21, 2024 3:21pm Hypertension acute May 21, 2024 3:21pm Obesity acute May 21 3:21pm Type 2 diabetes mellitus with hyperglycemia acute May 21, 025 3:21pm [facility] Work Phone: History general Narrative - Reported Note Date & Type Note Facility History general Narrative - Reported [facility] Other History general Narrative - Reported Note [...] Surgical History Pylonidal cyst 1979 Surgical History [facility] 1997 Surgical History Colonoscopy 2010 Surgical History Arthroscopy 10/2010 Hospitalization History see surgical history [facility] Other Summary Purpose Family History Relationship Condition Age at Onset Recorded Date/T rowena father Malignant neoplasm Unknown Diabetes mellitus Unknown Advance Directives Advance Directive Response Recorded Date/ Time Advance Directives No April 06, 2023 1:06pm Hospital Course Note [facility] SURGERY Clinical Discharge Summary PERSON INFORMATION Name DAI GREENWOOD Age 53 Years 1965 Sex MALE Language Malaysian PCP James Khan Marital Status Single Med Service Ambulatory Surgery Acct# Arrival 11/05/2018 07:54:04 Visit Reason SURGERY - RIGHT SHOULDER SCOPE Acuity LOS 019 02:29 Address: [address] [place] [address] Comment: PROVIDER INFORMATION VITALS INFORMATION Vital Sign [...] section and content) DATE CREATED AUTHOR 11/11/2018 [facility] l DATE CREATED AUTHOR AUTHOR'S ORGANIZ ATION 02/18/2022 [facility] REASON FOR VISIT (unrecogniz ed [...] BE BASED ON THE PRIMARY CLINICAL RECORDS. [facility] [employer] [facility]. provides no warranty or guarantee of the accuracy or completeness of information in this document.
--- NOTE | 2024-06-29 07:24 | ECG_ITS ---
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 Measurements Intervals [place] Rate: 62 P: 16 HI: 136 QRS: 21 QRSD: 100 T: 29 QT: 428 QTc: 434 Interpretive Statements 1100 Sinus rhythm 9110 normal ECG No previous ECG available for comparison Electronically Signed On 06-29-2024 14:39:38 EDT by AUNDREA LOZOYA M.D.
[2024-06-29] MEDS: NITROGLYCERIN 0.4 MG BOTTLE SL (07:52)
[2024-06-29 08:08] LABS: Basophils Absolute Auto 0.1 10^3/uL (0.0-0.1); Basophils Percent Auto 0.7 % (0.2-2.0); Hematocrit 41.7 % (42.0-54.0); Hemoglobin 14.7 g/dL (14.0-18.0); Immature Granulocytes Abs Auto 0.02 10^3/uL (0.00-0.03); Immature Granulocytes Pct Auto 0.2 % (0.0-0.5); Lymphocytes Absolute Auto 2.2 10^3/uL (1.2-3.8); Lymphocytes Percent Auto 25.7 % (20.5-60.0); Mean Corpuscular HGB Conc 35.3 g/dL (29.9-35.2); Mean Corpuscular Hemoglobin 33.2 pg (25.9-34.0); Mean Corpuscular Volume 94.1 fL (80.0-94.0); Monocytes Absolute Auto 0.6 10^3/uL (0.3-0.8); Monocytes Percent Auto 6.7 % (1.7-12.0); Neutrophils Absolute Auto 5.6 10^3/uL (1.4-6.5); Neutrophils Percent Auto 66.7 % (43.0-75.0); Platelet Count 220 10^3/uL (150-450); Red Blood Count 4.43 10^6/uL (4.70-6.10); Red Cell Distribution Width 11.9 % (11.0-15.0); White Blood Count 8.4 10^3/uL (4.0-11.0)
[2024-06-29 08:24] LABS: INR 1.05; Prothrombin Time 11.1 sec (9.0-11.6)
--- NOTE | 2024-06-29 08:25 | ED_ITS ---
HPI - Abdominal Pain General Chief Complaint: Abdominal Pain Time Seen by Provider: 06/29/24 07:19 Source: patient Mode of arrival: walk-in History of Present Illness HPI narrative: The patient is a 59 years old male with history of hypertension diabetes coming to the ER with this epigastric discomfort and lower chest pain that is mostly came after going to sleep, he mentioned initially that he woke up at 3 AM with this discomfort associated with some sweating and no nausea But the patient mentioned that he ate some potato chips before going to sleep and went to sleep exactly at 2 AM in his bed when this pain started The patient had no difficulty breathing no dizziness no blurry vision no chest pain other that the patient had no other concerns He was already feeling better by the time he came to the ER although he does have some discomfort at the moment Related Data Home Medications ?Medication ?Instructions ?Recorded ?Confirmed amlodipine 5 mg tablet 5 mg PO DAILY 06/29/24 06/29/24 carvedilol 25 mg tablet 25 mg PO Q12H 06/29/24 06/29/24 glimepiride 1 mg tablet 1 mg PO DAILY 06/29/24 06/29/24 telmisartan 20 mg tablet 20 mg PO DAILY 06/29/24 06/29/24 Previous Rx's ?Medication ?Instructions ?Recorded famotidine 20 mg tablet (Pepcid) 20 mg PO BID #10 tabs 06/29/24 Allergies Allergy/AdvReac Type Severity Reaction Status Date / Time No Known Drug Allergies Allergy Verified 06/29/24 07:16 Review of Systems ROS Status of ROS 10 or more systems reviewed and unremark able except as noted in history and below PFSH PFSH Social History Little interest or pleasure in doing things: not at all Feeling down, depressed, or hopeless: not at all Exam Narrative Exam Narrative: Nurses notes and vital signs reviewed and patient is not hypoxic. General: Well-appearing and in no apparent distress. Skin: Warm, dry, no pallor noted. No rash. Head: Normocephalic, atraumatic. Neck: Supple, non-tender. Cardiovascular: Regular Rate and Rhythm without murmur, gallop or rub. Respiratory: No accessory muscle use or respiratory distress. Lungs are clear to auscultation, no wheezing, rales or rhonchi Chest Wall: no tenderness Back: No midline thoracic or lumbar vertebral tenderness. No CVA tenderness Musculoskeletal: normal ROM, no calf or popliteal tenderness, no lower extremity edema/swelling GI: Abdomen is soft, non-distended. Normal bowel sounds. No masses appreciated. No tenderness to palpation. No rebound, guarding, or rigidity noted. Neurological: A&O x4. No cranial nerve dysfunction observed. No truncal ataxia. Moves all extremities. Sensation intact. Psychiatric: Cooperative and interactive. Normal mood and affect. Constitutional Vital Signs, click to edit/add: Last Vital Signs Temp 98 F 06/29/24 07:16 Pulse 78 06/29/24 09:40 Resp 20 06/29/24 09:40 BP 126/70 06/29/24 09:30 Pulse Ox 96 06/29/24 09:40 Course Vital Signs Vital signs: Vital Signs Temperature 98 F 06/29/24 07:16 Pulse Rate 67 06/29/24 07:16 Respiratory Rate 18 06/29/24 07:16 Blood Pressure 160/87 H 06/29/24 07:16 Pulse Oximetry 98 06/29/24 07:16 Temperature 98 F 06/29/24 07:16 Pulse Rate 78 06/29/24 09:40 Respiratory Rate 20 06/29/24 09:40 Blood Pressure 126/70 06/29/24 09:30 Pulse Oximetry 96 06/29/24 09:40 MDM - Abdominal Pain MDM Narrative Medical decision making narrative: The EKG showing sinus rhythm with a heart rate of [address] elevation or depression The patient blood workup including CBC and chemistry and troponin repeated twice was negative for any acute pathology Chest x-ray showed no acute pathology as well The patient was feeling much better I did try some nitroglycerin in the ER and he felt better after that but he was already feeling better by the time he arrived to the ER The patient presentation could be secondary to GERD although with his high risk I did refer him to follow-up with cardiology as outpatient He is to avoid any exertion and to follow-up with cardiology for stress test as outpatient and further evaluation The patient is to follow up with primary care physician in next 2-3 days or to return to the emergency department should any of the signs or symptoms worsen or new symptoms develop. The patient agrees with the following Diagnosis and Treatment plan and the patient will be discharged home. Patient takes aspirin daily 81 mg he also was started on Pepcid twice daily Lab Data Labs: Lab Results 06/29/24 06/29/24 Range/Units 07:35 09:17 WBC 8.4 (4.0-11.0) 10^3/uL RBC 4.43 L (4.70-6.10) 10^6/uL Hgb 14.7 (14.0-18.0) g/dL Hct 41.7 L (42.0-54.0) % MCV 94.1 H (80.0-94.0) fL MCH 33.2 (25.9-34.0) pg MCHC 35.3 H (29.9-35.2) g/dL RDW 11.9 (11.0-15.0) % Plt Count 220 (150-450) 10^3/uL MPV 9.0 L (9.5-13.5) fL Neut % (Auto) 66.7 (43.0-75.0) % Lymph % (Auto) 25.7 (20.5-60.0) % [place] % (Auto) 6.7 (1.7-12.0) % Eos % (Auto) 0.0 L (0.9-7.0) % Baso % (Auto) 0.7 (0.2-2.0) % Neut # (Auto) 5.6 (1.4-6.5) 10^3/uL Lymph # (Auto) 2.2 (1.2-3.8) 10^3/uL [place] # (Auto) 0.6 (0.3-0.8) 10^3/uL Eos # (Auto) 0.0 (0.0-0.7) 10^3/uL Baso # (Auto) 0.1 (0.0-0.1) 10^3/uL Abs Immat Gran (auto) 0.02 (0.00-0.03) 10^3/uL Imm/Tot Granulo (auto) 0.2 (0.0-0.5) % PT 11.1 (9.0-11.6) sec INR 1.05 Sodium 141 (136-145) mmol/L Potassium 4.2 (3.5-5.1) mmol/L Chloride 104 (98-107) mmol/L Carbon Dioxide 28.8 (21.0-32.0) mmol/L Anion Gap 12.4 BUN 20.0 H (7.0-18.0) mg/dL Creatinine 1.13 (0.70-1.30) mg/dL Est GFR ( Amer) >60 (>=60 mL/min/1.73m^2) Est GFR (Non-Af Amer) >60 (>=60 mL/min/1.73m^2) BUN/Creatinine Ratio 17.7 Glucose 174 H (74-106) mg/dL Calcium 8.7 (8.5-10.1) mg/dL Total Bilirubin 0.5 (0.2-1.0) mg/dL AST 20 (15-37) U/L ALT 27 (16-63) U/L Alkaline Phosphatase 79 (46-116) U/L Troponin I High Sens 4.2 4.4 (4.0-76.1) pg/mL Total Protein 7.5 (6.4-8.2) g/dL Albumin 3.8 (3.4-5.0) g/dL Globulin 3.7 g/dL Albumin/Globulin Ratio 1.0 Discharge Plan Discharge Chief Complaint: Abdominal Pain Clinical Impression: Abdominal pain, epigastric, Chest pain Patient Disposition: Home, Self-Care Time of Disposition Decision: 09:47 Condition: Good Prescriptions / Home Meds: New famotidine [Pepcid] 20 mg tablet 20 mg PO BID Qty: 10 0RF No Action carvedilol 25 mg tablet 25 mg PO Q12H amlodipine 5 mg tablet 5 mg PO DAILY glimepiride 1 mg tablet 1 mg PO DAILY telmisartan 20 mg tablet 20 mg PO DAILY Print Language: Hebrew Instructions: Chest Pain (DC) Referrals: James Khan DO [Primary Care Provider] - 1 week Jamaal Davison MD [Physician] - As soon as possible Discharge Date/Time: 06/29/24 09:55
[2024-06-29 08:26] LABS: Alanine Aminotransferase 27 U/L (16-63); Albumin Level 3.8 g/dL (3.4-5.0); Alkaline Phosphatase 79 U/L (46-116); Anion Gap 12.4; Aspartate Amino Transferase 20 U/L (15-37); BUN Creatinine Ratio 17.7; Bilirubin Total 0.5 mg/dL (0.2-1.0); Calcium 8.7 mg/dL (8.5-10.1); Carbon Dioxide 28.8 mmol/L (21.0-32.0); Chloride 104 mmol/L (98-107); Estimated GFR (African America >60 (>=60 mL/min/1.73m^2); Estimated GFR (Non-African Ame >60 (>=60 mL/min/1.73m^2); Globulin 3.7 g/dL; Glucose 174 mg/dL (74-106); Potassium 4.2 mmol/L (3.5-5.1); Sodium 141 mmol/L (136-145); Total Protein 7.5 g/dL (6.4-8.2)
[2024-06-29 08:29] LABS: Troponin I High Sensitivity 4.2 pg/mL (4.0-76.1)
[2024-06-29 09:38] LABS: Troponin I High Sensitivity 4.4 pg/mL (4.0-76.1)
== END 2024-06-29 09:55 | disposition home or self-care (01) ==
PROVIDERS: Emergency Provider Emergency Medicine; PCP Internal Medicine
DX: R07.9 Chest pain, unspecified (principal); R10.13 Epigastric pain; I10 Essential (primary) hypertension; E11.9 Type 2 diabetes mellitus without complications; Z79.84 Long term (current) use of oral hypoglycemic drugs; Z79.82 Long term (current) use of aspirin
CPT/HCPCS: 36415; 71045; 80053; 84484; 85025; 85610; 93005; 99285

== ENCOUNTER 2025-02-25 08:54 | Outpatient (OUT) | payer OTHER, SELFPAY ==
--- OUTSIDE RECORDS SUMMARY | 2025-02-25 08:58 | XMS_ITS | Clinical Summary ---
Author Organization [facility] Address [address] [place] [address] Care Team Providers Care Chainstitch Hemmer Name Role Phone Unavailable Primary Care Provider Unavailabl e Social History Tobacco UseTypesPacks/DayYears UsedDateSmoking Tobacco: Never AssessedSex and Gender InformationValueDate RecordedSex Assigned at BirthNot on fileLegal Sex Male05/25/2022 9:35 PM EDTGender IdentityNot on fileSexual OrientationNot on file Last Filed Vital Signs Vital SignReadingTime TakenCommentsBlood Pressure--Pulse--Temperature-- Respiratory Rate--Oxygen Saturation--Inhaled Oxygen Concentration--Felett62.8 kg (209 lb)10/16/2018 12:00 PM LRDOftzgc398.7 cm (5' 8 )10/16/2018 12:00 PM EDTBody Mass Index31.78010/16/2018 12:00 PM EDT Plan of Treatment Not on file
--- OUTSIDE RECORDS SUMMARY | 2025-02-25 08:58 | XMS_ITS | Clinical Summary ---
Author Organization [facility] Address [address] [place], [place] [address] Care Team Providers Care Exchange Clerk Name Role Phone Unavailable Primary Care Provider Unavailabl e Allergies No known active allergies Medications MedicationSigDispense QuantityRefillsLast FilledStart DateEnd DateStatus ATENOLOL 50 MG TAB Take one(1) tablet daily.ctive aspirin(ECOTRIN LOW STRENGTH 81 MG TAB) Take one(1) tablet daily.ctive niacin(NIASPAN 500 MG TAB) Take one(1) tablet two(2) times daily.ctive fish oil/dha/epa(FISH OIL 1,200 MG-144 MG-216 MG CAP) Take one(1) tablet daily.ctive MULTIVITAMIN TAB Take one(1) tablet daily.ctive DICLOFENAC 3 % TOPICAL GEL Apply to the perineum 2-3/day 1 ctive IBUPROFEN 800 MG TAB Take one(1) tablet every eight(8) hours as needed for pain. 40 ctive Family History Medical HistoryRelationCommentsColon CancerFatherliver metsAneurysmMother RelationStatusCommentsFatherMother Social History Tobacco UseTypesPacks/DayYears UsedDateSmoking Tobacco: NeverAlcohol UseStandard Drinks/WeekCommentsYes0 (1 standard drink = 0.6 oz pure alcohol)occasionallySex and Gender InformationValueDate RecordedSex Assigned at BirthNot on fileLegal CniYkut10/02/2012 8:21 AM ESTGender IdentityNot on fileSexual OrientationNot on file Last Filed Vital Signs Vital SignReadingTime TakenCommentsBlood Izmvfflb977/81766 3:54 PM EDT Kpvyv997810/30/2008 3:54 PM NYWNpwgxyhdvwp27.7 ??C (98.1 ??F)10/30/2008 3:54 PM EDTRespiratory Ohyl588010/30/2008 3:54 PM EDTOxygen Nkedsdklnm91%10/30/2008 3:54 PM EDTInhaled Oxygen Concentration--Pmkuft68.6 kg (219 lb 9.6 oz)10/30/2008 3:54 PM KGYKllwzm047.3 cm (5' 9 )10/30/2008 3:54 PM EDTBody Mass Index32.43010/30/2008 3:54 PM EDT Plan of Treatment Health MaintenanceDue DateLast DoneCommentsAnxiety Efpqbljac95/03/1983Depression Stujaqzwt87/03/1983HIV Nkfjvxbbe78/03/1983Hepatitis C Idgovuygt16/03/1983 DTaP,Tdap,Td Vaccine (1 - Tdap)1983Lipid Gefapmhrm43/03/2000CT Uecqddoafyqm51/03/2010Cologuard (FIT-DNA)03/15/20096690Ewljhojzsvh47/03/2010 Colorectal Cancer Rpwpebkuy94/03/2010Diabetes Conhuvlut61/03/2010Fecal Occult Blood2009Prostate Cancer Screening Dzdutjhiej31/03/2010Sigmoidoscopy 2009Pneumococcal Vaccine: 50+ (1 of 1 - PCV)2014Shingrix Vaccine (1 of 2)2014Covid-19 Vaccine (1 - 2024- season)2024Influenza Vaccine (#1)2024RSV Vaccine (1 - 1-dose 75+ series)2039 Insurance
[2025-02-25 09:25] LABS: Hematocrit 44.3 % (42.0-54.0); Hemoglobin 15.1 g/dL (14.0-18.0); Immature Granulocytes Abs Auto 0.01 10^3/uL (0.00-0.03); Immature Granulocytes Pct Auto 0.2 % (0.0-0.5); Lymphocytes Absolute Auto 1.8 10^3/uL (1.2-3.8); Mean Corpuscular HGB Conc 34.1 g/dL (29.9-35.2); Mean Corpuscular Hemoglobin 31.8 pg (25.9-34.0); Mean Corpuscular Volume 93.3 fL (80.0-94.0); Platelet Count 213 10^3/uL (150-450); Red Blood Count 4.75 10^6/uL (4.70-6.10); White Blood Count 6.6 10^3/uL (4.0-11.0)
[2025-02-25 10:00] LABS: Microalbum Creatinine Ratio Ur 11.1 mg/g (0.0-29.9)
[2025-02-25 10:04] LABS: Alanine Aminotransferase 36 U/L (16-63); Albumin Globulin Ratio 0.9; Albumin Level 3.8 g/dL (3.4-5.0); Alkaline Phosphatase 69 U/L (46-116); Anion Gap 12.3; Aspartate Amino Transferase 20 U/L (15-37); Blood Urea Nitrogen 12.0 mg/dL (7.0-18.0); Calcium 8.7 mg/dL (8.5-10.1); Carbon Dioxide 29.8 mmol/L (21.0-32.0); Chloride 104 mmol/L (98-107); Cholesterol 185 mg/dL (<=200); Estimated GFR (African America >60 (>=60 mL/min/1.73m^2); Estimated GFR (Non-African Ame >60 (>=60 mL/min/1.73m^2); Globulin 4.2 g/dL; Glucose 155 mg/dL (74-106); HDL Cholesterol 39 mg/dL (40-60); Potassium 4.1 mmol/L (3.5-5.1); Sodium 142 mmol/L (136-145); Total Protein 8.0 g/dL (6.4-8.2); Triglycerides 136 mg/dL (<=150); VLDL CHOLESTEROL 27.2 mg/dL
== END 2025-02-25 08:55 | disposition home or self-care (01) ==
LOC: LAB 08:55
PROVIDERS: PCP Internal Medicine; Visit Provider Internal Medicine
DX: Z00.00 Encounter for general adult medical examination without abnormal findings (principal); Z12.5 Encounter for screening for malignant neoplasm of prostate
CPT/HCPCS: 36415; 80053; 80061; 82043; 82570; 83036; 85025; G0103